=== PATIENT | male | born 1960 | race Asian ===

== ENCOUNTER 2020-08-06 08:03 | Outpatient (REF) | payer OTHER, SELFPAY ==
[2020-08-06 09:01] LABS: Estimated Average Glucose 189 mg/dL; Hemoglobin A1c % 8.2 %
[2020-08-06 09:21] LABS: Alanine Aminotransferase 17 U/L (0-40); Albumin Level 4.3 g/dL (3.5-5.0); Alkaline Phosphatase 64 U/L (39-117); Anion Gap 13 (12-20); Aspartate Amino Transferase 18 U/L (5-37); Bilirubin Total 0.8 mg/dL (0.0-1.0); Blood Urea Nitrogen 10 mg/dL (9-16); Carbon Dioxide 27 mmol/L (22-29); Chloride 102 mmol/L (96-108); Estimated Glomerular Filt Rate > 60; Glucose Random 151 mg/dL (60-115); Potassium 4.6 mmol/L (3.3-5.1); Sodium 137 mmol/L (135-145); Total Protein 7.2 g/dL (6.5-8.0)
== END 2020-08-06 08:04 | disposition home or self-care (01) ==
LOC: HO.LAB 08:03
PROVIDERS: PCP Internal Medicine; Visit Provider Internal Medicine
DX: E03.9 Hypothyroidism, unspecified (principal); E11.65 Type 2 diabetes mellitus with hyperglycemia; E78.2 Mixed hyperlipidemia; I10 Essential (primary) hypertension
CPT/HCPCS: 36415; 80053; 83036

== ENCOUNTER 2020-11-27 08:04 | Outpatient (REF) | payer OTHER, SELFPAY ==
[2020-11-27 08:36] LABS: MANUAL DIFF FLAG NO
[2020-11-27 08:46] LABS: Basophils Absolute Auto 0.1 X10*3/uL (0.0-0.2); Basophils Percent Auto 0.7 % (0-2); Eosinophils Absolute Auto 0.4 X10*3/uL (0.0-0.4); Hematocrit 38.4 % (42-52); Hemoglobin 11.6 g/dl (14.0-18.0); Imm Gran Abs Auto 0.05 X10*3/uL (0.00-0.03); Imm Gran Pct Auto 0.6 % (0.0-0.4); Lymphocytes Absolute Auto 1.6 X10*3/uL (1.2-4.9); Lymphocytes Percent Auto 19.2 % (20-40); Mean Corpuscular HGB Conc 30.2 g/dl (31.0-36.0); Mean Corpuscular Hemoglobin 24.5 pg (27.0-33.0); Mean Corpuscular Volume 81.2 fL (80-98); Mean Platelet Volume 9.3 fL (9.4-12.4); Monocytes Absolute Auto 0.5 X10*3/uL (0.1-1.2); Monocytes Percent Auto 6.3 % (2-11); Neutrophils Absolute Auto 5.7 X10*3/uL (2.0-8.3); Neutrophils Percent Auto 68.2 % (45-73); Platelet Count 306 X10*3/uL (160-400); Red Blood Count 4.73 X10*6/uL (4.60-5.80); Red Cell Distribution Width 14.3 % (11.0-16.0); White Blood Count 8.4 X10*3/uL (4.8-10.8)
[2020-11-27 08:49] LABS: Estimated Average Glucose 169 mg/dL; Hemoglobin A1C 179.1079 umol/L; Hemoglobin A1c % 7.5 %
[2020-11-27 09:03] LABS: Alanine Aminotransferase 18 U/L (0-40); Albumin Level 4.2 g/dL (3.5-5.0); Alkaline Phosphatase 67 U/L (39-117); Anion Gap 14 (12-20); Aspartate Amino Transferase 20 U/L (5-37); Bilirubin Total 0.5 mg/dL (0.0-1.0); Blood Urea Nitrogen 11 mg/dL (9-16); Calcium 9.2 mg/dL (8.4-10.2); Carbon Dioxide 24 mmol/L (22-29); Chloride 104 mmol/L (96-108); Cholesterol 192 mg/dL; Estimated Glomerular Filt Rate > 60; Glucose Fasting 142 mg/dL (60-99); HDL Cholesterol 31 mg/dL; LDL Cholesterol Calculated 103 mg/dl; Potassium 4.6 mmol/L (3.3-5.1); Sodium 137 mmol/L (135-145); Total Protein 7.2 g/dL (6.5-8.0); Triglycerides 292 mg/dL
[2020-11-27 09:20] LABS: Creatinine Urine 22.69 mg/dL; Microalbumin Urine < 5.0 mg/L
== END 2020-11-27 08:05 | disposition home or self-care (01) ==
LOC: HO.LAB 08:04
PROVIDERS: PCP Internal Medicine; Visit Provider Internal Medicine
DX: D50.8 Other iron deficiency anemias (principal); E11.65 Type 2 diabetes mellitus with hyperglycemia; E78.00 Pure hypercholesterolemia, unspecified; I10 Essential (primary) hypertension; M54.5 Low back pain
CPT/HCPCS: 36415; 80053; 80061; 82043; 83036; 85025

== ENCOUNTER 2021-03-02 07:40 | Outpatient (REF) | payer OTHER, SELFPAY ==
[2021-03-02 08:24] LABS: Estimated Average Glucose 183 mg/dL
[2021-03-02 08:46] LABS: Alanine Aminotransferase 23 U/L (0-40); Albumin Level 4.3 g/dL (3.5-5.0); Alkaline Phosphatase 66 U/L (39-117); Anion Gap 12 (12-20); Aspartate Amino Transferase 25 U/L (5-37); Bilirubin Total 0.8 mg/dL (0.0-1.0); Blood Urea Nitrogen 11 mg/dL (9-16); Carbon Dioxide 24 mmol/L (22-29); Chloride 103 mmol/L (96-108); Estimated Glomerular Filt Rate > 60; Glucose Random 140 mg/dL (60-115); Potassium 4.1 mmol/L (3.3-5.1); Sodium 135 mmol/L (135-145); Total Protein 7.3 g/dL (6.5-8.0)
[2021-03-02 09:06] LABS: Thyroid Stimulating Hormone 2.94 uIU/mL (0.32-4.0)
== END 2021-03-02 07:41 | disposition home or self-care (01) ==
LOC: HO.LAB 07:40
PROVIDERS: PCP Internal Medicine; Visit Provider Internal Medicine
DX: Z00.01 Encounter for general adult medical examination with abnormal findings (principal); E03.9 Hypothyroidism, unspecified; E11.65 Type 2 diabetes mellitus with hyperglycemia; E78.00 Pure hypercholesterolemia, unspecified
CPT/HCPCS: 36415; 80053; 83036; 84443

== ENCOUNTER → 2021-04-15 08:36 | Outpatient (BNVA) | payer OTHER, SELFPAY | PROVIDERS: PCP Internal Medicine; Visit Provider Internal Medicine | DX: R07.2 Precordial pain (principal); I10 Essential (primary) hypertension; E78.5 Hyperlipidemia, unspecified; E11.8 Type 2 diabetes mellitus with unspecified complications | CPT/HCPCS: 93005; 99202 ==

== ENCOUNTER → 2021-05-12 07:59 | Outpatient (REF) | payer OTHER, SELFPAY ==
--- NOTE | ~2021-05-12 | NM_ITS ---
Lexiscan Myocardial perfusion study Indication: Chest pain, assess for coronary disease and ischemia Technique: The patient was brought in for a Lexiscan perfusion study on 05/12/2021 and was injected 0.4 mg of Lexiscan intravenously. Within a minute of this injection 40 mCi of sestamibi was given intravenously. Images were obtained using the SPECT gamma camera interlaced with the gating device. Images were obtained in supine position. Resting perfusion study was performed on 05/14/2021. Patient was administered 40 mCi of sestamibi intravenously at rest. Images were then obtained in supine position. Total DLP 88mGy-cm. Images were processed with the software and compared side to side in short axis, horizontal long axis and vertical long axis views. Findings: Raw acquisition was reviewed. The stress perfusion study showed diminished tracer uptake in the basal inferior and inferoseptal inferior wall; mid inferior wall. There is good improvement with CT attenuation correction and hence could be from diaphragmatic attenuation artifact. The gated study shows low normal LV systolic function with calculated LVEF of 51%. LV cavity is normal in size. The gated study shows normal wall thickening and contraction of segments. Resting study shows diminished tracer uptake in the basal part of inferior wall and adjacent inferior septum. There is improvement with CT attenuation correction suggesting diaphragmatic attenuation artifact. Gating at rest reveals normal wall motion with ejection fraction at 50%. The findings are consistent with fixed basal inferior/inferoseptal defect, likely from diaphragmatic attenuation artifact. No reversible defects. NM/NM cardiolite stress test Impression: 1. Myocardial perfusion imaging study shows no evidence of any ischemia or infarction. Likely normal perfusion. 2. Gated LVEF is 51% during stress and 50% during rest. Correlate with echocardiogram. 3. Transient ischemic dilatation not present. EKG component of the test reported separately.
--- NOTE | 2021-05-12 08:02 | CA_ITS ---
Acquisition Time: 2021-05-12 08:43:27 Total Exercise Time: 00:02:21 Test Indications: ABN EKG, CP Medications: SEE CHART Protocol: DB Max HR: 150 BPM 94% of Pred: 158 BPM Max BP: 186/060 mmHG Max Work Load: 4.6 METS Exercise stress test with exercise 2 min 21 sec of Db protocol with request to stop due to fatigue and sob, no chest discomfort. He did have brisk chronotropic response to exercise with heart rate achieving > 90% MPHR, without EKG changes of ischemia noted. He was assisted to sitting and testing changed to a pharmacological stress test with Lexiscan while sitting and kicking his legs, without anginal symptoms, with isolated PVC, with normotensive response to injection, with nondiagnostic EKG for ischemia. Nuclear images pending. Test reviewed with Dr Noel. Referred By: Javan Noel Overread By: ASHLEY HASSAN
== END ==
LOC: HO.CARD 07:59
PROVIDERS: PCP Internal Medicine; Visit Provider Internal Medicine
DX: R07.2 Precordial pain (principal)
CPT/HCPCS: 78452; 93017; A9500; J0280; J2785

== ENCOUNTER 2021-06-01 08:03 | Outpatient (REF) | payer OTHER, SELFPAY ==
[2021-06-01 10:41] LABS: Estimated Average Glucose 171 mg/dL; Hemoglobin A1c % 7.6 %
[2021-06-01 10:52] LABS: Alanine Aminotransferase 25 U/L (0-40); Albumin Level 4.1 g/dL (3.5-5.0); Alkaline Phosphatase 63 U/L (39-117); Anion Gap 14 (12-20); Aspartate Amino Transferase 26 U/L (5-37); Bilirubin Total 0.5 mg/dL (0.0-1.0); Blood Urea Nitrogen 14 mg/dL (9-16); Calcium 9.2 mg/dL (8.4-10.2); Carbon Dioxide 25 mmol/L (22-29); Chloride 102 mmol/L (96-108); Cholesterol 210 mg/dL; Estimated Glomerular Filt Rate > 60; Glucose Fasting 148 mg/dL (60-99); HDL Cholesterol 30 mg/dL; LDL Cholesterol Calculated 127 mg/dl; Potassium 4.6 mmol/L (3.3-5.1); Sodium 136 mmol/L (135-145); Total Protein 7.3 g/dL (6.5-8.0); Triglycerides 268 mg/dL
== END 2021-06-01 08:04 | disposition home or self-care (01) ==
LOC: HO.10HDL 08:03
PROVIDERS: Visit Provider Internal Medicine
DX: E03.9 Hypothyroidism, unspecified (principal); E11.65 Type 2 diabetes mellitus with hyperglycemia; E78.00 Pure hypercholesterolemia, unspecified; I10 Essential (primary) hypertension; K59.00 Constipation, unspecified; R07.89 Other chest pain
CPT/HCPCS: 36415; 80053; 80061; 83036

== ENCOUNTER → 2021-06-03 08:24 | Outpatient (REF) | payer OTHER, SELFPAY ==
--- NOTE | 2021-06-03 08:26 | CA_ITS ---
Transthoracic Echocardiogram Patient (Last, First, Middle): Siddharth Dang, Gender: Male Date of : 1960 Age: 61 Procedure Date: 06/03/2021 Procedure Type: Transthoracic Echocardiogram Location: OP Height: 187.96 cm Weight: 109.01 kg BSA: 2.35 m2 Heart Rate: bpm BP: 140 / 67 mmHg Pyrometer Mechanic: JEFERSON Referring MD: Javan Noel MD Symptoms: R07.2 - Precordial pain Study Quality: Fair/Contrast ECG Rhythm: Sinus Conclusions: - The left ventricular systolic function is normal. The visually estimated ejection fraction is between 55-60%. - There is mild calcification of the aortic valve. - There is mild anterior mitral leaflet thickening. - No obvious valvular pathology seen on this study. Findings Procedure Information Contrast agent, definity, is being given per protocol without apparent complications. Left Ventricle Normal left ventricular cavity size. There is mildly increased left ventricular wall thickness. The left ventricular systolic function is normal. The visually estimated ejection fraction is between 55-60%. E/E prime ratio is between 8 and 15 consistent with indeterminate filling pressures. Evidence suggests grade I (mild) diastolic dysfunction. Right Ventricle Normal right ventricular cavity size and systolic function. Atria Both atria are normal in size. Aortic Valve There is a normal trileaflet aortic valve. There is mild calcification of the aortic valve. There is no aortic valve stenosis. The mean gradient is 4 mmHg. There is no aortic valve regurgitation. Mitral Valve There is mild anterior mitral leaflet thickening. There is no mitral valve regurgitation. There is no mitral valve stenosis. Pulmonic Valve The pulmonic valve was not well visualized. Tricuspid Valve Normal tricuspid valve structure. There is trace tricuspid valve regurgitation. Tricuspid regurgitation envelope is inadequate for calculation of right ventricular systolic pressure. Great Vessels The aortic annulus, sinuses of valsalva, and asc aorta are normal in size. Venous The inferior vena cava is normal in size and collapses greater than 50% with inspiration. Pericardium/Pleural There is no evidence of pericardial effusion. Prior Study Comparison No prior study available for comparison. Recommendations, Care & Conclusions No obvious valvular pathology seen on this study. Measurements 2D Linear Measurements IVSd: 1.20 0.6-0.9/0.6-1.0 cm LVIDd: 4.73 3.9-5.3/4.2-5.9 cm LVIDd Index: 2.01 2.4-3.2/2.2-3.1 cm/m2 LVIDs: 3.19 2.0-3.6 cm LVPWd: 1.10 0.7-1.1 cm Ao Root: 3.40 2.1-3.5 cm LA Diam: 4.00 2.7-3.8/3.0-4.0 cm LAIDs Index: 1.70 1.5-2.3 cm/m2 LV Mass: 251.27 67-162/88-224 g LV Mass Index: 106.92 43-95/49-115 g/m2 LVOT Diam: 2.10 3.0+(-)1.3 cm 2D Systolic Function EF 4C: 52.50 >55% EF 2C: 52.50 >55% EF BiP: 51.20 >55% Mitral Valve MV Pk E: 0.87 MV PK A: 0.81 MV Decel Time: 189.00 E/A: 1.10 E'Lateral: 7.62 E'Medial: 6.74 E/E' Med: 12.90 E/E' Lat: 11.40 PHT: 55.00 MVA PHT: 4.00 Decel [place]: 4.59 Aortic Valve AoV Pk Francisco Javier: 1.36 AoV Mn Francisco Javier: 0.94 AoV VTI: 0.24 AoV Pk Grad: 7.00 Aov Mn Grad: 4.00 YASMIN Cont.VTI: 2.19 LVOT LVOT Pk Francisco Javier: 0.76 LVOT Mn Francisco Javier: 0.49 LVOT VTI: 0.15 LVOT Pk Grad: 2.00 LVOT Mn Grad: 1.00 LVOT Diam: 2.10 LVOT Area: 3.46 Diastolic Function MV Pk E: 0.87 MV Pk A: 0.81 E/A: 1.10 E'Medial: 6.74 E/E' Med: 12.90 E' Laterial: 7.62 E/E' Lat: 11.40 Right Ventricle TAPSE (mm): 2.09 TVS' Francisco Javier: 11.70 Tricuspid Valve RA Press: 3.00 Great Vessels Aorta Ao Root-2D: 3.40 2.0-3.7 cm Ao Asc: 2.90 2.1-3.4 cm Updated in Other Vendor System with Status of Final Javan Noel MD electronically signed on 06/05/2021 4:47:31 PM with status of Final
== END ==
LOC: HO.CARD 08:24
PROVIDERS: Visit Provider Internal Medicine
DX: R07.2 Precordial pain (principal)
CPT/HCPCS: 93306; Q9957

== ENCOUNTER → 2021-06-09 08:55 | Outpatient (BNVA) | payer OTHER, SELFPAY | PROVIDERS: PCP Internal Medicine; Visit Provider Internal Medicine | DX: I10 Essential (primary) hypertension (principal); R07.2 Precordial pain; E11.8 Type 2 diabetes mellitus with unspecified complications; E78.5 Hyperlipidemia, unspecified | CPT/HCPCS: 99212 ==

== ENCOUNTER 2021-09-01 07:46 | Outpatient (REF) | payer OTHER, SELFPAY ==
[2021-09-01 08:40] LABS: Estimated Average Glucose 160 mg/dL; Hemoglobin A1c % 7.2 %
[2021-09-01 08:53] LABS: Alanine Aminotransferase 17 U/L (0-40); Albumin Level 4.1 g/dL (3.5-5.0); Alkaline Phosphatase 62 U/L (39-117); Anion Gap 13 (12-20); Aspartate Amino Transferase 17 U/L (5-37); Bilirubin Total 0.5 mg/dL (0.0-1.0); Blood Urea Nitrogen 12 mg/dL (9-16); Calcium 9.5 mg/dL (8.4-10.2); Carbon Dioxide 24 mmol/L (22-29); Chloride 104 mmol/L (96-108); Cholesterol 200 mg/dL; Estimated Glomerular Filt Rate > 60; Glucose Random 122 mg/dL (60-115); HDL Cholesterol 31 mg/dL; LDL Cholesterol Calculated 106 mg/dl; Potassium 4.6 mmol/L (3.3-5.1); Sodium 136 mmol/L (135-145); Triglycerides 319 mg/dL
[2021-09-01 09:13] LABS: Thyroid Stimulating Hormone 2.32 uIU/mL (0.32-4.0)
== END 2021-09-01 07:47 | disposition home or self-care (01) ==
LOC: HO.LAB 07:46
PROVIDERS: PCP Internal Medicine; Visit Provider Internal Medicine
DX: E03.9 Hypothyroidism, unspecified (principal); E11.65 Type 2 diabetes mellitus with hyperglycemia; E78.00 Pure hypercholesterolemia, unspecified; I10 Essential (primary) hypertension
CPT/HCPCS: 36415; 80053; 80061; 83036; 84443

== ENCOUNTER 2021-11-24 07:47 | Outpatient (REF) | payer OTHER, SELFPAY ==
[2021-11-24 10:24] LABS: MANUAL DIFF FLAG NO
[2021-11-24 10:29] LABS: Basophils Absolute Auto 0.1 X10*3/uL (0.0-0.2); Basophils Percent Auto 0.9 % (0-2); Eosinophils Absolute Auto 0.4 X10*3/uL (0.0-0.4); Eosinophils Percent Auto 5.5 % (0-4); Hematocrit 38.8 % (42.0-52.0); Hemoglobin 11.6 g/dl (14.0-18.0); Imm Gran Abs Auto 0.04 X10*3/uL (0.00-0.03); Imm Gran Pct Auto 0.5 % (0.0-0.4); Lymphocytes Absolute Auto 1.5 X10*3/uL (1.2-4.9); Lymphocytes Percent Auto 18.7 % (20-40); Mean Corpuscular HGB Conc 29.9 g/dl (31.0-36.0); Mean Corpuscular Hemoglobin 24.7 pg (27.0-33.0); Mean Corpuscular Volume 82.7 fL (80.0-98.0); Mean Platelet Volume 9.6 fL (9.4-12.4); Monocytes Absolute Auto 0.6 X10*3/uL (0.1-1.2); Monocytes Percent Auto 7.2 % (2-11); Neutrophils Absolute Auto 5.2 x10*3/uL (2.0-8.3); Neutrophils Percent Auto 67.2 % (45-73); Platelet Count 282 X10*3/uL (160-400); Red Blood Count 4.69 X10*6/uL (4.60-5.80); Red Cell Distribution Width 14.2 % (11.0-16.0); White Blood Count 7.8 X10*3/uL (4.8-10.8)
[2021-11-24 10:58] LABS: Alanine Aminotransferase 17 U/L (0-40); Albumin Level 4.1 g/dL (3.5-5.0); Alkaline Phosphatase 66 U/L (39-117); Anion Gap 15 (12-20); Aspartate Amino Transferase 20 U/L (5-37); Bilirubin Total 0.6 mg/dL (0.0-1.0); Blood Urea Nitrogen 9 mg/dL (9-16); Calcium 8.8 mg/dL (8.4-10.2); Carbon Dioxide 23 mmol/L (22-29); Chloride 103 mmol/L (96-108); Cholesterol 203 mg/dL; Estimated Glomerular Filt Rate > 60; Glucose Fasting 156 mg/dL (60-99); HDL Cholesterol 36 mg/dL; LDL Cholesterol Calculated 120 mg/dl; Potassium 4.5 mmol/L (3.3-5.1); Sodium 136 mmol/L (135-145); Total Protein 7.1 g/dL (6.5-8.0); Triglycerides 239 mg/dL
[2021-11-24 11:00] LABS: Creatinine Urine 22.49 mg/dL; Microalbumin Urine < 5.0 mg/L
[2021-11-24 11:02] LABS: Thyroid Stimulating Hormone 2.17 uIU/mL (0.32-4.0)
[2021-11-24 11:39] LABS: Vitamin B12 594 pg/mL (200-900)
== END 2021-11-24 07:48 | disposition home or self-care (01) ==
LOC: HO.10HDL 07:47
PROVIDERS: Visit Provider Internal Medicine
DX: E11.65 Type 2 diabetes mellitus with hyperglycemia (principal); E78.2 Mixed hyperlipidemia; I10 Essential (primary) hypertension; K44.9 Diaphragmatic hernia without obstruction or gangrene
CPT/HCPCS: 36415; 80053; 80061; 82043; 82607; 84443; 85025

== ENCOUNTER 2022-02-24 07:43 | Outpatient (REF) | payer OTHER, SELFPAY ==
[2022-02-24 10:47] LABS: Estimated Average Glucose 171 mg/dL; Hemoglobin A1c % 7.6 %
[2022-02-24 11:02] LABS: Alanine Aminotransferase 19 U/L (0-40); Albumin Level 4.3 g/dL (3.5-5.0); Alkaline Phosphatase 69 U/L (39-117); Anion Gap 16 (12-20); Aspartate Amino Transferase 22 U/L (5-37); Bilirubin Total 0.6 mg/dL (0.0-1.0); Blood Urea Nitrogen 11 mg/dL (9-16); Calcium 8.8 mg/dL (8.4-10.2); Carbon Dioxide 23 mmol/L (22-29); Chloride 101 mmol/L (96-108); Estimated Glomerular Filt Rate > 60; Glucose Fasting 102 mg/dL (60-99); Potassium 4.4 mmol/L (3.3-5.1); Sodium 136 mmol/L (135-145); Total Protein 7.4 g/dL (6.5-8.0)
[2022-02-24 11:24] LABS: Prostate Specific Antigen 0.49 ng/mL (<0.05-4.0)
== END 2022-02-24 07:44 | disposition home or self-care (01) ==
LOC: HO.10HDL 07:43
PROVIDERS: Visit Provider Internal Medicine
DX: Z12.5 Encounter for screening for malignant neoplasm of prostate (principal); E03.9 Hypothyroidism, unspecified; E11.40 Type 2 diabetes mellitus with diabetic neuropathy, unspecified; E11.65 Type 2 diabetes mellitus with hyperglycemia; E78.2 Mixed hyperlipidemia; I10 Essential (primary) hypertension; N40.0 Benign prostatic hyperplasia without lower urinary tract symptoms
CPT/HCPCS: 36415; 80053; 83036; 84153

== ENCOUNTER 2022-05-03 00:09 | Inpatient (IN) | payer OTHER, SELFPAY ==
[2022-05-03] VITALS (9 sets, daily range): BP systolic 127–160; BP diastolic 69–93; PULSE 82–130; RESP 14–20; TEMP 36.2–36.7; O2SAT 96–98; BMI 31.1; BMI 30.4; BMI 23.5
--- NOTE | ~2022-05-03 | CT_ITS ---
EXAMINATION: CT ANGIOGRAM CHEST CLINICAL INFORMATION: Severe chest pain. Substernal. COMPARISON: CT chest 04/28/2022. TECHNIQUE: Multiple axial images were obtained through the chest after the administration of 70 mL of Omnipaque 350 intravenous contrast. Extensive vascular post-processing including two-dimensional and three-dimensional reformatted images were created and reviewed on an independent workstation. This CT examination was performed using dose optimization techniques as appropriate, variously including the following: *Automated exposure control *Adjustment of mA and/or kV according to patient size (this includes techniques or standardized protocols for targeted exams where dose is matched to indication/reason for exam; i.e. extremities or head) *Use of iterative reconstruction technique DLP: 422 mGy-cm FINDINGS: Vascular: Mild nonocclusive calcific atherosclerosis within the right brachiocephalic artery. Nonocclusive scattered calcific and noncalcific atherosclerosis within the thoracic aorta. Normal caliber and contour of the thoracic aorta. No dissection of the thoracic aorta noted. Patent origin of the celiac axis and superior mesenteric artery. Patent bilateral renal arteries noted. The kidneys are not fully included in the image [id number]. The main and central pulmonary arteries are normal in caliber. Within the visualized pulmonary arterial system: No intraluminal filling defects are noted to suggest the presence of pulmonary emboli. Partial visualization is made of at least moderate coronary artery calcific atherosclerosis principally within the left anterior descending and circumflex coronary arteries. LUNGS: No pulmonary consolidation. No peribronchial wall thickening or endobronchial lesions noted. The small number of noncalcified pulmonary nodules identified on the comparison study of 04/28/2022 are grossly unchanged without definitive correlates possibly because of mild motion artifact and differences in technique on the current examination. The previously noted 5 mm subpleural nodule within the right lower pulmonary lobe (series 5 image 336) is visualized to better advantage on the comparison CT of 04/28/2022. Mediastinum: No abnormal mediastinal fluid collections. No lymphadenopathy. Normal heart size. No pericardial thickening or fluid collections. Incidentally visualized abdominal structures: Normal appearance of the adrenal glands. CHEST WALL: No axillary lymphadenopathy or subcutaneous inflammatory changes. Osseous structures: Mild multilevel anterior endplate osteophytosis of the thoracic spine. CT/CT angio chest aorta IMPRESSION: CT angiography of the chest: *No acute abnormalities identified. No thoracic aortic dissection or thoracic aortic aneurysm. *No evidence of pulmonary emboli. *Partial visualization of moderate scattered coronary artery calcific atherosclerosis predominantly within the left anterior descending and circumflex coronary arteries. *Partial visualization of previously noted scattered pulmonary nodules measuring up to 5 mm in diameter (CT chest 04/28/2022). Per the 2017 revised Fleischner Society guidelines, no routine follow-up is necessarily required in low-risk patients, and consideration of 12 month follow-up CT is recommended for patients at high-risk for the development of pulmonary neoplasm.
--- NOTE | 2022-05-03 00:30 | ECG_ITS ---
Test Reason : chest pain Blood Pressure : / mmHG Vent. Rate : 106 BPM Atrial Rate : 106 BPM P-R Int : 134 ms QRS Dur : 082 ms QT Int : 356 ms P-R-T Axes : 061 -04 025 degrees QTc Int : 472 ms Sinus tachycardia Nonspecific ST and T wave abnormality Abnormal ECG No previous ECGs available Referred By: Cande Zuleta Electronically Signed By:VAISHALI VAZQUEZ
[2022-05-03 00:40] LABS: MANUAL DIFF FLAG NO
--- NOTE | 2022-05-03 00:40 | ED_ITS ---
HPI - Chest Pain General Chief Complaint: Chest Pain Stated Complaint: CP Time Seen by Provider: 05/03/22 00:30 Source: patient and EMS Mode of arrival: EMS Limitations: no limitations History of Present Illness HPI narrative: This is a 62-year-old male history of type 2 diabetes, hypertension, precordial chest pain presenting to the emergency department via ambulance for severe substernal chest pain that started just prior to arrival. Patient rates the pain of 05/01 in the substernal region going into his back. Patient tells me he gets chest pain every day due to GERD however this feels different. Patient tells me that he has been getting daily chest pain however this episode prompted him to come in to be evaluated. Patient tells me that his typical episodes go away on their own however this will not going away. Patient has never had a CT of chest. Patient is followed by cardiology and has had echoes of his heart in the past. Denies shortness of breath, nausea, vomiting, headache, vision bruce es, dizziness, chest trauma. Related Data Home Medications Medication Instructions Recorded Confirmed atorvastatin 80 mg tablet 80 mg PO DAILY 04/15/21 06/09/21 empagliflozin 25 mg tablet 25 mg PO DAILY 04/15/21 06/09/21 (Jardiance) glipizide 10 mg tablet, extended 10 mg PO BID 04/15/21 06/09/21 release 24 hr levothyroxine 75 mcg tablet 75 mcg PO DAILY 04/15/21 06/09/21 losartan 100 1 tab PO DAILY 04/15/21 06/09/21 mg-hydrochlorothiazide 25 mg tablet metformin 1,000 mg tablet 1,000 mg PO BID 04/15/21 06/09/21 Previous Rx's Medication Instructions Recorded aluminum-mag hydroxide-simethicone 5 ml PO 5XD PRN dyspepsia #355 mL 05/03/22 200 mg-200 mg-20 mg/5 mL oral susp (Maalox Advanced) Allergies Allergy/AdvReac Type Severity Reaction Status Date / Time Penicillins [PENICILLINS] Allergy Intermediate RASH Verified 06/09/21 09:00 lisinopril Allergy Unknown Itching Verified 06/09/21 09:00 Review of Systems Review of Systems: Constitutional : No Weight loss, No Fever, No Chills, No Fatigue, No Malaise ENT/Mouth : No sore throat, No Rhinorrhea Eyes: No Eye Pain, No Swelling, No Redness Cardiovascular : + Chest Pain, No SOB, No Dyspnea on Exertion, No Orthopnea, No Edema, No Palpitations Respiratory : No Cough, No Sputum, No Wheezing Gastrointestinal : No Nausea, No Vomiting, No Diarrhea, No Constipation, No abdominal Pain, No Hematochezia, No Melena Genitourinary : No Dysuria, No Urinary Frequency, No Hematuria, Musculoskeletal : No joint pain, No Myalgias, No Joint Swelling Skin : No Skin Lesions, No rash Neuro : No Weakness, No Numbness, No Dizziness, No Headache Psych : No Anxiety/Panic, No Depression All other systems reviewed and are negative Yes all other systems are reviewed and are negative [facility] Past Medical History Attestation statement: The following information was validated with the patient. Source: old records reviewed and nursing notes reviewed Medical History Essential hypertension Other and unspecified hyperlipidemia Type 2 diabetes mellitus with unspecified complications Surgical History No pertinent past surgical history Family History Family History Father No problems noted. Mother No problems noted. Social History Social History Patient Tobacco Use Status: Never used Tobacco Advance Directives: No Physical Exam Vital Signs: Vital Signs: Last Vital Signs Temp 97.5 F 05/03/22 01:21 Pulse 101 H 05/03/22 01:31 Resp 14 05/03/22 01:32 BP 145/85 H 05/03/22 01:31 Pulse Ox 98 05/03/22 01:21 O2 Del Method 05/03/22 01:21 BMI result Body Mass Index 31.1 vss, slightly tachycardic Appearance: Alert.? Oriented X3.? No acute distress.? Head: Normocephalic, atraumatic, no step-offs or deformities Eyes: Pupils equal, round and reactive to light.? ENT: Pharynx normal.? Neck: Normal inspection.? Neck supple.? CVS: Fast rate regular rhythm likely sinus tachycardia.? Pulses normal.? Respiratory: No respiratory distress.? Breath sounds normal.? Abdomen: Soft and nontender.? Skin: Skin warm and dry.? Normal skin color.? Normal skin turgor.? Extremities: No lower extremity edema.? No calf ttp. 5/5 strength to bilateral upper and lower extremities Neuro: Oriented X 3.? No motor deficit.? No sensory deficit. CN 2-12 intact . Patient ambulates with steady gait normal coordination. Course Course Course Narrative: Case discussed w/ my attending Reevaluation(s) Reevaluation #1: EKG still not done. CBC appears to be around patient's baseline he does have a microcytic anemia. Chemistry with no acute findings requiring intervention. Troponin 1001.3 elevated, still waiting for EKG. Troponin ordered for 3:35 for repeat. Time: 01:14 Reevaluation #2: EKG with ventricular rate of 106, MI interval normal, QRS normal, QT/QTC normal. EKG with sinus tachycardia no ST elevations or inversions concerning for ischemia. Reached out to Cardiology you states this is likely ACS, recommend starting heparin trending cardiac markers, giving statins and nitrates. States the pain does not improve patient should be transferred to [facility] Time: 01:37 Reevaluation #3: Suspicion for NSTEMI. Heparin ordered. Sign-out given tonight doctor Dr. Gu pending CTA likely hospital admission for an NSTEMI Time: 01:45 Medications Administered Discontinued Medications Generic Name Dose Route Start Last Admin Trade Name Freq PRN Reason Stop Dose Admin Al Hydroxide/Mg Hydroxide 30 ml 05/03/22 00:30 05/03/22 00:52 Magnesium Hydrox/Alum Hydrox 30 Ml Oral.Susp PO 05/03/22 00:31 30 ml ONCE ONE Administration Aspirin 325 mg 05/03/22 01:15 05/03/22 01:31 Aspirin Enteric Coated 325 Mg Tablet.Dr PO 05/03/22 01:16 325 mg ONCE ONE Administration Atorvastatin Calcium 80 mg 05/03/22 01:35 05/03/22 01:42 Atorvastatin Calcium 80 Mg Tablet PO 05/03/22 01:36 80 mg ONCE ONE Administration Belladonna Alkaloids/Phenobarbital 10 ml 05/03/22 00:30 05/03/22 00:53 Phenobarb/Hyoscy/Atropine/Scop 10 Ml Elixir PO 05/03/22 00:31 10 ml ONCE ONE Administration Iohexol 70 ml 05/03/22 01:17 05/03/22 01:18 Iohexol 350 Mg/Ml 100 Ml Infus..Btl IV 05/03/22 01:18 70 ml ONCE ONE Administration Morphine Sulfate 4 mg 05/03/22 01:15 05/03/22 01:32 Morphine Sulfate 4 Mg/Ml Cartridge IVPUSH 05/03/22 01:16 4 mg ONCE ONE Administration Protocol Nitroglycerin 0.5 inch 05/03/22 01:15 05/03/22 01:31 Nitroglycerin 2 % Oint 1 Gm Packet TRANSDERMA 05/03/22 01:16 0.5 inch ONCE ONE Administration Medical Decision Making Medical Decision Making [facility] Narrative: 0042 62-year-old male presents with sudden onset substernal chest pain rating at 12/10 going into his back. Typically gets chest pain however this feels different. Physical examination with rapid regular rhythm likely sinus tachycardia. Rest of exam benign. Will obtain CTA of the chest to rule out dissection/AAA although unlikely. Like ly chest pain,or ACS. History and physical examination unlikely PE. Due to patient's history will not wait for laboratory studies to do dissection study. Upon chart review patient has seen Cardiology here at [facility] has had an echo which showed NM/NM cardiolite stress test Impression: 1. Myocardial perfusion imaging study shows no evidence of any ischemia or infarction. Likely normal perfusion. 2. Gated LVEF is 51% during stress and 50% during rest. Correlate with echocardiogram. 3. Transient ischemic dilatation not present. Plan at this time labs, imaging, EKG. This PAC started an 18 G in R AC and obtained labs. Asked nursing for stat EKG. Critical Care Time Critical Care Time Critical Care Time: Yes Total Critical Care Time: 35 Attestation: I attest to this time spent taking care of the patient, obtaining history, physical, reviewing labs, imaging, speaking to my attending, speaking to specialist. Discharge Plan Discharge Clinical Impression: ACS (acute coronary syndrome), Gastroesophageal reflux disease Patient Disposition: Still a Patient Instructions: Chest Pain (ED), Gastroesophageal Reflux Disease (ED), Indig estion (ED) Prescriptions: New alum-mag hydroxide-simeth [Maalox Advanced] 200-200-20 mg/5 mL suspension 5 ml PO 5XD PRN (Reason: dyspepsia) Qty: 355 0RF Rx Instructions: administer between meals and at bedtime No Action Jardiance 25 mg tablet 25 mg PO DAILY metformin 1,000 mg tablet 1,000 mg PO BID levothyroxine 75 mcg tablet 75 mcg PO DAILY losartan-hydrochlorothiazide 100-25 mg tablet 1 tab PO DAILY glipizide 10 mg tablet extended release 24hr 10 mg PO BID atorvastatin 80 mg tablet 80 mg PO DAILY
[2022-05-03 00:42] LABS: Basophils Absolute Auto 0.1 X10*3/uL (0.0-0.2); Basophils Percent Auto 0.8 % (0-2); Eosinophils Absolute Auto 0.5 X10*3/uL (0.0-0.4); Eosinophils Percent Auto 5.2 % (0-4); Hematocrit 38.7 % (42.0-52.0); Imm Gran Abs Auto 0.03 X10*3/uL (0.00-0.03); Imm Gran Pct Auto 0.3 % (0.0-0.4); Lymphocytes Absolute Auto 1.9 X10*3/uL (1.2-4.9); Lymphocytes Percent Auto 22.3 % (20-40); Mean Corpuscular Hemoglobin 24.2 pg (27.0-33.0); Mean Platelet Volume 9.2 fL (9.4-12.4); Monocytes Absolute Auto 0.7 X10*3/uL (0.1-1.2); Neutrophils Absolute Auto 5.5 x10*3/uL (2.0-8.3); Neutrophils Percent Auto 63.4 % (45-73); Platelet Count 285 X10*3/uL (160-400); Red Blood Count 4.96 X10*6/uL (4.60-5.80); Red Cell Distribution Width 14.1 % (11.0-16.0); White Blood Count 8.7 X10*3/uL (4.8-10.8)
[2022-05-03] MEDS: Magnesium Hydrox/Alum Hydrox 30 ML ORAL.SUSP PO (00:52)
[2022-05-03] MEDS: PHENobarb/Hyoscy/Atropine/Scop 10 ML ELIXIR PO (00:53)
[2022-05-03 00:57] LABS: Alanine Aminotransferase 19 U/L (0-40); Albumin Level 4.2 g/dL (3.5-5.0); Alkaline Phosphatase 85 U/L (39-117); Anion Gap 16 (12-20); Aspartate Amino Transferase 20 U/L (5-37); Bilirubin Total 0.4 mg/dL (0.0-1.0); Blood Urea Nitrogen 13 mg/dL (9-16); Calcium 9.5 mg/dL (8.4-10.2); Carbon Dioxide 21 mmol/L (22-29); Chloride 102 mmol/L (96-108); Estimated Glomerular Filt Rate > 60; Glucose Random 196 mg/dL (60-115); Sodium 135 mmol/L (135-145); Total Protein 7.3 g/dL (6.5-8.0)
[2022-05-03 01:03] LABS: Troponin-I High Sensitivity 1001.3 ng/L (<3.5-35.0)
[2022-05-03] MEDS: iohexoL 350 MG/ML 100 ML INFUS..BTL 70 ML IV (01:18)
--- NOTE | 2022-05-03 01:23 | MHC.EDTECH ---
[place] [facility] [place] room 4 per JULISSA Rubio. EKG performed, labs and covid swab sent to lab. pt placed on director of cardiac cath lab. resting comfortably at this time.
[2022-05-03 01:29] LABS: INTERNATIONAL NORM RATIO 1.1 (0.9-1.1); Prothrombin Time 13.1 SEC (10.0-13.1)
[2022-05-03] MEDS: Nitroglycerin 2 % Oint 1 GM Packet 0.5 INCH TRANSDERMA (01:31)
[2022-05-03] MEDS: Aspirin Enteric Coated 325 MG TABLET.DR PO (01:31)
[2022-05-03] MEDS: Morphine Sulfate 4 MG/ML CARTRIDGE IVPUSH (01:32)
[2022-05-03 01:40] LABS: COVID-19 Test Negative (Negative); IDNOW Serial# BCCEAD1C
[2022-05-03] MEDS: Atorvastatin Calcium 80 MG TABLET PO (01:42)
--- NOTE | 2022-05-03 02:00 | ECG_ITS ---
Test Reason : ches pain Blood Pressure : / mmHG Vent. Rate : 083 BPM Atrial Rate : 083 BPM P-R Int : 130 ms QRS Dur : 084 ms QT Int : 406 ms P-R-T Axes : 051 -09 069 degrees QTc Int : 477 ms Normal sinus rhythm Nonspecific T wave abnormality Prolonged QT Abnormal ECG When compared with ECG of 03-MAY-2022 01:11, Nonspecific T wave abnormality no longer evident in Inferior leads Referred By: Cande Zuleta Electronically Signed By:VAISHALI VAZQUEZ
[2022-05-03 02:50] LABS: B Type Natriuretic Peptide 97 pg/mL (<100)
--- NOTE | 2022-05-03 02:50 | PM.IMHP ---
History of Present Illness Date of Service: 05/03/22 Chief Complaint: Chest Pain This is 62-year-old male with pertinent history of essential hypertension, zuo-bwuofhy-latygqfcb diabetes mellitus, mixed hyperlipidemia, hypothyroidism, gastroesophageal reflux disease presents the emergency department evaluation of chest discomfort. Patient states he has been having chest discomfort for a while and initially it was thought to be due to GERD. It is usually worse with ambulation and is relieved on rest. On the day of presentation, his chest discomfort worsened and did not relieve with rest. Does have occasional chest discomfort when sleeping with acid reflux symptoms. Never has had a cardiac catheterization. He denies palpitations, shortness of breath, fever, chills, cough, abdominal pain, changes in urinary or bowel habits. In the emergency department, troponin was found to be elevated and heparin was initiated Review of Systems Constitutional: Constitutional: Reports no additional constitutional complaints Cardiovascular: Cardiovascular: Reports chest pain Respiratory: Respiratory: Reports no additional respiratory complaints Genitourinary: Genitourinary: Reports no additional male genitourinary complaints [facility] Medical History Essential hypertension Other and unspecified hyperlipidemia Type 2 diabetes mellitus with unspecified complications Family History Father No problems noted. Mother No problems noted. Surgical History No pertinent past surgical history Social History Patient Tobacco Use Status: Never used Tobacco Advance Directives: No Meds Allergies Allergy/AdvReac Type Severity Reaction Status Date / Time Penicillins [PENICILLINS] Allergy Intermediate RASH Verified 06/09/21 09:00 lisinopril Allergy Unknown Itching Verified 06/09/21 09:00 Active Medications: Current Medications Acetaminophen (Acetaminophen 325 Mg Tablet) 650 mg PO Q6H PRN PRN Reason: Pain, Mild (Pain Scale 1-3) Atorvastatin Calcium (Atorvastatin Calcium 40 Mg Tablet) 40 mg PO ONCE ONE Stop: 05/03/22 02:36 Melatonin (Melatonin 3 Mg Tablet) 6 mg PO BEDTIME PRN PRN Reason: Insomnia Nitroglycerin (Nitroglycerin 0.4 Mg Tab.Subl) 0.4 mg SUBLINGUAL Q5MX3 PRN PRN Reason: chest pain Ondansetron HCl (Ondansetron Hcl 4 Mg/2 Ml Vial) 4 mg IVPUSH Q8H PRN PRN Reason: Nausea and Vomiting Pharmacy Consult (Consult Rx Perform Med Rec) 1 each MISCELLANE ONCE PRN PRN Reason: Consult order Sodium Chloride (0.9 % Sodium Chloride Flush 3 Ml Syringe) 3 ml IVFLUSH [facility] Medications Medication Instructions Recorded Confirmed Last Taken Type atorvastatin 80 mg tablet 80 mg PO DAILY 04/15/21 06/09/21 Unknown History empagliflozin 25 mg tablet 25 mg PO DAILY 04/15/21 06/09/21 Unknown History (Jardiance) glipizide 10 mg tablet, extended 10 mg PO BID 04/15/21 06/09/21 Unknown History release 24 hr levothyroxine 75 mcg tablet 75 mcg PO DAILY 04/15/21 06/09/21 Unknown History losartan 100 1 tab PO DAILY 04/15/21 06/09/21 Unknown History mg-hydrochlorothiazide 25 mg tablet metformin 1,000 mg tablet 1,000 mg PO BID 04/15/21 06/09/21 Unknown History Physical Exam Vital Signs and Narrative: Vital Signs: Last Vital Signs Temp 97.5 F 05/03/22 01:21 Pulse 101 H 05/03/22 01:31 Resp 14 05/03/22 01:32 BP 145/85 H 05/03/22 01:31 Pulse Ox 98 05/03/22 01:21 O2 Del Method 05/03/22 01:21 BMI result Body Mass Index 31.1 Middle-aged male lying in bed in no distress Neck supple, no JVD, no chest tenderness Tachycardic with regular rhythm, S1-S2 heard Regular breath sounds bilaterally, no wheezing or crackles appreciated Abdomen soft nontender, no guarding, no rigidity Patient is awake, alert and oriented to self, place, time and person ; no focal motor deficit Psych: Normal mood No pedal edema Results Labs CBC and Chem 7: 05/03/22 00:35 05/03/22 00:35 Labs: Laboratory Results - last 24 hr 05/03/22 05/03/22 05/03/22 00:35 00:35 00:35 MCV 78.0 L MCH 24.2 L MCHC 31.0 RDW 14.1 Plt Count 285 MPV 9.2 L Immature Gran % (Auto) 0.3 Neut % (Auto) 63.4 Lymph % (Auto) 22.3 [place] % (Auto) 8.0 Eos % (Auto) 5.2 H Baso % (Auto) 0.8 Lymph # (Auto) 1.9 [place] # (Auto) 0.7 Eos # (Auto) 0.5 H Baso # (Auto) 0.1 Abs Immat Gran (auto) 0.03 Absolute Neuts (auto) 5.5 Absolute Nucleated RBC 0.000 Nucleated RBC % (auto) 0.0 PT INR Anion Gap 16 Estim Creat Clear Calc 98.0 Estimated GFR > 60 Random Glucose 196 H Calcium 9.5 D Total Bilirubin 0.4 AST 20 ALT 19 Alkaline Phosphatase 85 Troponin I High Sens 1001.3 H* Total Protein 7.3 Albumin 4.2 COVID-19 ([facility]) COVID-Radius 05/03/22 05/03/22 05/03/22 01:13 01:17 01:17 MCV MCH MCHC RDW Plt Count MPV Immature Gran % (Auto) Neut % (Auto) Lymph % (Auto) [place] % (Auto) Eos % (Auto) Baso % (Auto) Lymph # (Auto) [place] # (Auto) Eos # (Auto) Baso # (Auto) Abs Immat Gran (auto) Absolute Neuts (auto) Absolute Nucleated RBC Nucleated RBC % (auto) PT 13.1 INR 1.1 Anion Gap Cancelled Estim Creat Clear Calc Cancelled Estimated GFR Cancelled Random Glucose Cancelled Calcium Cancelled Total Bilirubin Cancelled AST Cancelled ALT Cancelled Alkaline Phosphatase Cancelled Troponin I High Sens Total Protein Cancelled Albumin Cancelled COVID-19 ([facility]) Negative COVID-19 Clin Com See Note 05/03/22 01:17 MCV MCH MCHC RDW Plt Count MPV Immature Gran % (Auto) Neut % (Auto) Lymph % (Auto) [place] % (Auto) Eos % (Auto) Baso % (Auto) Lymph # (Auto) [place] # (Auto) Eos # (Auto) Baso # (Auto) Abs Immat Gran (auto) Absolute Neuts (auto) Absolute Nucleated RBC Nucleated RBC % (auto) PT INR Anion Gap Estim Creat Clear Calc Estimated GFR Random Glucose Calcium Total Bilirubin AST ALT Alkaline Phosphatase Troponin I High Sens Cancelled Total Protein Albumin COVID-19 ([facility]) COVID-19 Clin Com Imaging Radiologist's Impressions: Impressions Chest CTA 05/03/22 01:17 IMPRESSION: CT angiography of the chest: *No acute abnormalities identified. No thoracic aortic dissection or thoracic aortic aneurysm. *No evidence of pulmonary emboli. *Partial visualization of moderate scattered coronary artery calcific atherosclerosis predominantly within the left anterior descending and circumflex coronary arteries. *Partial visualization of previously noted scattered pulmonary nodules measuring up to 5 mm in diameter (CT chest 04/28/2022). Per the 2017 revised Fleischner Society guidelines, no routine follow-up is necessarily required in low-risk patients, and consideration of 12 month follow-up CT is recommended for patients at high-risk for the development of pulmonary neoplasm. Assessment and Plan (1) Precordial chest pain: Status: Acute (2) Gastroesophageal reflux disease: Status: Acute (3) Type 2 diabetes mellitus with unspecified complications: Status: Acute (4) Other and unspecified hyperlipidemia: Status: Acute (5) Essential hypertension: Status: Acute Plan This is 62-year-old male with pertinent history of essential hypertension, dhy-dpnepnv-cdpyynoph diabetes mellitus, mixed hyperlipidemia, hypothyroidism, gastroesophageal reflux disease presents the emergency department evaluation of chest discomfort. #. NSTEMI: Will admit with credit assessment analyst. Initiated IV heparin. Cardiology was consulted from the ER, appreciate assistance. Patient also received aspirin loading dose and high-intensity statin. Nitroglycerin sublingual p.r.n. #. Essential hypertension: On losartan-HCTZ. Not on B marielle #. Uns-sxbmivt-vtwxosvrz diabetes mellitus: Hold home p.o. medications. Initial Accu-Cheks with sliding scale insulin #. Hypothyroidism: On Synthroid #. Gastroesophageal reflux disease: On PPI Med rec pending DVT prophylaxis: On heparin Full code Admit as inpatient and will require two night minimum hospital stay for IV heparin. Time Spent With Patient Time: Total time managing care of this patient today ____ minutes. Quality Stroke Does the patient have a stroke diagnosis?: No VTE Prior VTE?: No VTE Risk Level:: Medical - low VTE Device Contraindication: Treatment Not Indicated VTE Drug Contraindication: N/A - Med Ordered
[2022-05-03 03:19] LABS: Hematocrit 37.6 % (42.0-52.0); Hemoglobin 11.8 g/dl (14.0-18.0); Mean Corpuscular HGB Conc 31.4 g/dl (31.0-36.0); Mean Corpuscular Hemoglobin 24.5 pg (27.0-33.0); Mean Corpuscular Volume 78.2 fL (80.0-98.0); Mean Platelet Volume 9.1 fL (9.4-12.4); Platelet Count 279 X10*3/uL (160-400); Red Blood Count 4.81 X10*6/uL (4.60-5.80); Red Cell Distribution Width 14.2 % (11.0-16.0); White Blood Count 10.4 X10*3/uL (4.8-10.8)
[2022-05-03 03:29] LABS: Glucose, Whole Blood 221 mg/dL (60-115)
[2022-05-03 03:38] LABS: INTERNATIONAL NORM RATIO 1.1 (0.9-1.1); Prothrombin Time 12.6 SEC (10.0-13.1)
[2022-05-03 03:40] LABS: PTT Heparin Drip 28.1 SEC (53-77.9)
[2022-05-03] MEDS: Heparin Sodium,Porcine/1/2NS 25,000 UNIT/250 ML IV.SOLN 14.69 UNIT IVCONT (03:50)
[2022-05-03 03:54] LABS: Troponin-I High Sensitivity 1486.1 ng/L (<3.5-35.0)
[2022-05-03] MEDS: Insulin Lispro 100 UNIT/ML 3 ML VIAL SUBCUT ×2 (04:00→17:30)
[2022-05-03 06:18] LABS: MANUAL DIFF FLAG NO
[2022-05-03 06:28] LABS: Basophils Absolute Auto 0.1 X10*3/uL (0.0-0.2); Basophils Percent Auto 0.9 % (0-2); Eosinophils Absolute Auto 0.6 X10*3/uL (0.0-0.4); Eosinophils Percent Auto 6.4 % (0-4); Hematocrit 37.3 % (42.0-52.0); Hemoglobin 11.4 g/dl (14.0-18.0); Imm Gran Abs Auto 0.04 X10*3/uL (0.00-0.03); Imm Gran Pct Auto 0.4 % (0.0-0.4); Lymphocytes Absolute Auto 2.5 X10*3/uL (1.2-4.9); Lymphocytes Percent Auto 27.1 % (20-40); Mean Corpuscular HGB Conc 30.6 g/dl (31.0-36.0); Mean Corpuscular Hemoglobin 24.3 pg (27.0-33.0); Mean Corpuscular Volume 79.4 fL (80.0-98.0); Mean Platelet Volume 9.6 fL (9.4-12.4); Monocytes Absolute Auto 0.7 X10*3/uL (0.1-1.2); Monocytes Percent Auto 7.4 % (2-11); Neutrophils Absolute Auto 5.3 x10*3/uL (2.0-8.3); Neutrophils Percent Auto 57.8 % (45-73); Platelet Count 294 X10*3/uL (160-400); White Blood Count 9.2 X10*3/uL (4.8-10.8)
[2022-05-03 08:30] LABS: Glucose, Whole Blood 167 mg/dL (60-115)
--- NOTE | 2022-05-03 09:29 | PHA.MEDREC ---
Pharmacy Consult ? Medication Reconciliation Pharmacy has completed the medication reconciliation. Patient and patient's daughter confirmed medications. Both reported patient stopped metoprolol because he was into much pain. Daughter reports he most likely should be on metoprolol succinate 100 mg daily. Armida Santamaria, PharmD
--- NOTE | 2022-05-03 09:59 | P.DS_ITS ---
DS: Providers Provider Date of Service: 05/03/22 Date of admission: 05/03/22 02:32 Primary care physician: Florence Dickerson MD Consults: 05/03/22 02:34 Consult to Cardiology Routine Consulting Provider: Gilles Jackson Reason for consultation: NSTEMI DS: Diagnosis Discharge Diagnosis (1) Precordial chest pain: Status: Acute (2) Gastroesophageal reflux disease: Status: Acute (3) Type 2 diabetes mellitus with unspecified complications: Status: Acute (4) Other and unspecified hyperlipidemia: Status: Acute (5) Essential hypertension: Status: Acute DS: Summary Hospital Course Hospital Course: Chief Complaint: Chest Pain This is 62-year-old male with pertinent history of essential hypertension, kkq-amdfgoz-caywnllwb diabetes mellitus, mixed hyperlipidemia, hypothyroidism, gastroesophageal reflux disease presents the emergency department evaluation of chest discomfort.? Patient states he has been having chest discomfort for a while and initially it was thought to be due to GERD.? It is usually worse with ambulation and is relieved on rest.? On the day of presentation, his chest discomfort worsened and did not relieve with rest.? Does have occasional chest discomfort when sleeping with acid reflux symptoms.? Never has had a cardiac catheterization.? He denies palpitations, shortness of breath, fever, chills, cough, abdominal pain, changes in urinary or bowel habits. In the emergency department, troponin was found to be elevated and heparin was initiated Hospital course: Patient presented with chest pain and found to have NSTEMI with troponin level starting 1000 and peaking at 1400, ECG showed non-specific ST-T changes. He is pain free now and hemodynamically stable. Medical management has including ASA, BB, Statin and IV heparin, credit professional Dr. Noel advises transfer to [facility] for further risk stratification with cardiac catheterization. Time Spent with Patient Time attestation: Total time managing care of this patient today ____ minutes. Discharge coordination time: Greater than 30 minutes Quality: Safe Use of Opioids Does Pt have an Active Cancer Diagnosis on the Problem List?: No Quality: Stroke Does the patient have a stroke diagnosis?: No Physical Exam Vital Signs: Vital Signs: Last Vital Signs Temp 97.4 F 05/03/22 08:00 Pulse 92 05/03/22 08:00 Resp 16 05/03/22 08:00 BP 127/69 05/03/22 08:00 Pulse Ox 98 12/12/22 08:00 O2 Del Method 05/03/22 08:00 BMI result Body Mass Index 23.5 Const: Other: General: AO X 3, no acute distress Resp: CTA bilateral CVS: S1,S2,RRR GI: +BS, NT, no distention Skin: No rash Neuro: motor grossly intact Psych: appropriate affect DS: Data Data Completed and Pending Labs on day of discharge: Laboratory Results - last 24 hr 05/03/22 05/03/22 05/03/22 00:35 00:35 00:35 WBC 8.7 RBC 4.96 Hgb 12.0 L Hct 38.7 L MCV 78.0 L MCH 24.2 L MCHC 31.0 RDW 14.1 Plt Count 285 MPV 9.2 L Immature Gran % (Auto) 0.3 Neut % (Auto) 63.4 Lymph % (Auto) 22.3 [place] % (Auto) 8.0 Eos % (Auto) 5.2 H Baso % (Auto) 0.8 Lymph # (Auto) 1.9 [place] # (Auto) 0.7 Eos # (Auto) 0.5 H Baso # (Auto) 0.1 Abs Immat Gran (auto) 0.03 Absolute Neuts (auto) 5.5 Absolute Nucleated RBC 0.000 Nucleated RBC % (auto) 0.0 PT INR aPTT Heparin Protocol Sodium 135 Potassium 4.0 Chloride 102 Carbon Dioxide 21 L Anion Gap 16 BUN 13 Creatinine 0.99 Estim Creat Clear Calc 98.0 Estimated GFR > 60 POC Glucose Random Glucose 196 H Calcium 9.5 D Total Bilirubin 0.4 AST 20 ALT 19 Alkaline Phosphatase 85 Troponin I High Sens 1001.3 H* B-Natriuretic Peptide Total Protein 7.3 Albumin 4.2 COVID-19 ([facility]) COVID-19 Clin Com 05/03/22 05/03/22 05/03/22 00:35 01:13 01:17 WBC RBC Hgb Hct MCV MCH MCHC RDW Plt Count MPV Immature Gran % (Auto) Neut % (Auto) Lymph % (Auto) [place] % (Auto) Eos % (Auto) Baso % (Auto) Lymph # (Auto) [place] # (Auto) Eos # (Auto) Baso # (Auto) Abs Immat Gran (auto) Absolute Neuts (auto) Absolute Nucleated RBC Nucleated RBC % (auto) PT INR aPTT Heparin Protocol Sodium Cancelled Potassium Cancelled Chloride Cancelled Carbon Dioxide Cancelled Anion Gap Cancelled BUN Cancelled Creatinine Cancelled Estim Creat Clear Calc Cancelled Estimated GFR Cancelled POC Glucose Random Glucose Cancelled Calcium Cancelled Total Bilirubin Cancelled AST Cancelled ALT Cancelled Alkaline Phosphatase Cancelled Troponin I High Sens B-Natriuretic Peptide 97 Total Protein Cancelled Albumin Cancelled COVID-19 ([facility]) Negative COVID-19 Clin Com See Note 05/03/22 05/03/22 05/03/22 01:17 01:17 03:14 WBC RBC Hgb Hct MCV MCH MCHC RDW Plt Count MPV Immature Gran % (Auto) Neut % (Auto) Lymph % (Auto) [place] % (Auto) Eos % (Auto) Baso % (Auto) Lymph # (Auto) [place] # (Auto) Eos # (Auto) Baso # (Auto) Abs Immat Gran (auto) Absolute Neuts (auto) Absolute Nucleated RBC Nucleated RBC % (auto) PT 13.1 INR 1.1 aPTT Heparin Protocol Sodium Potassium Chloride Carbon Dioxide Anion Gap BUN Creatinine Estim Creat Clear Calc Estimated GFR POC Glucose Random Glucose Calcium Total Bilirubin AST ALT Alkaline Phosphatase Troponin I High Sens Cancelled 1486.1 H* B-Natriuretic Peptide Total Protein Albumin COVID-19 ([facility]) COVID-Organizer 05/03/22 05/03/22 05/03/22 03:14 03:14 03:25 WBC 10.4 RBC 4.81 Hgb 11.8 L Hct 37.6 L MCV 78.2 L MCH 24.5 L MCHC 31.4 RDW 14.2 Plt Count 279 MPV 9.1 L Immature Gran % (Auto) Neut % (Auto) Lymph % (Auto) [place] % (Auto) Eos % (Auto) Baso % (Auto) Lymph # (Auto) [place] # (Auto) Eos # (Auto) Baso # (Auto) Abs Immat Gran (auto) Absolute Neuts (auto) Absolute Nucleated RBC 0.000 Nucleated RBC % (auto) 0.0 PT 12.6 INR 1.1 aPTT Heparin Protocol 28.1 L Sodium Potassium Chloride Carbon Dioxide Anion Gap BUN Creatinine Estim Creat Clear Calc Estimated GFR POC Glucose 221 H Random Glucose Calcium Total Bilirubin AST ALT Alkaline Phosphatase Troponin I High Sens B-Natriuretic Peptide Total Protein Albumin COVID-19 ([facility]) [facility]19 Clin Com 05/03/22 05/03/22 05/03/22 05:48 05:48 08:26 WBC 9.2 RBC 4.70 Hgb 11.4 L Hct 37.3 L MCV 79.4 L MCH 24.3 L MCHC 30.6 L RDW 14.0 Plt Count 294 MPV 9.6 Immature Gran % (Auto) 0.4 Neut % (Auto) 57.8 Lymph % (Auto) 27.1 [place] % (Auto) 7.4 Eos % (Auto) 6.4 H Baso % (Auto) 0.9 Lymph # (Auto) 2.5 [place] # (Auto) 0.7 Eos # (Auto) 0.6 H Baso # (Auto) 0.1 Abs Immat Gran (auto) 0.04 H Absolute Neuts (auto) 5.3 Absolute Nucleated RBC 0.000 Nucleated RBC % (auto) 0.0 PT INR aPTT Heparin Protocol Sodium Potassium Chloride Carbon Dioxide Anion Gap BUN Creatinine Estim Creat Clear Calc Estimated GFR POC Glucose 167 H Random Glucose Calcium Total Bilirubin AST ALT Alkaline Phosphatase Troponin I High Sens 1371.2 H* B-Natriuretic Peptide Total Protein Albumin COVID-19 ([facility]) COVID-19 CareParent Discharge Plan Discharge Anticipated Discharge Date/Time: 05/03/22 09:52 Patient Disposition: Xfer Acute Care Hospital Discharge Diagnosis: NSTEMI Referrals: Florence Dickerson MD [Primary Care Provider] - 1 Week Discharge Medications: New alum-mag hydroxide-simeth [Maalox Advanced] 200-200-20 mg/5 mL suspension 5 ml PO 5XD PRN (Reason: dyspepsia) Qty: 355 0RF Rx Instructions: administer between meals and at bedtime heparin(porcine) in 0.45% NaCl 25,000 unit/250 mL Parenteral Solution 25,000 unit continuous IV infusion .Q0M Qty: 6000 0RF Rx Instructions: Follow institution heparin protocol metoprolol tartrate 25 mg tablet 25 mg PO BID Qty: 14 0RF aspirin 81 mg capsule 81 mg PO DAILY Qty: 30 0RF Continued omeprazole 40 mg capsule,delayed release(DR/EC) 40 mg PO DAILY polyethylene glycol 3350 [Gavilax] 17 gram/dose powder 17 g PO DAILY PRN (Reason: Constipation) naproxen 250 mg Tablet 250 mg PO BID PRN (Reason: Pain) Metamucil 3.4 gram/5.4 gram Powder 1 tbsp PO DAILY Rx Instructions: mix into at least 8 oz of water or juice before administering Jardiance 25 mg tablet 25 mg PO DAILY metformin 1,000 mg tablet 1,000 mg PO BID levothyroxine 75 mcg tablet 75 mcg PO DAILY losartan-hydrochlorothiazide 100-25 mg tablet 1 tab PO DAILY glipizide 10 mg tablet extended release 24hr 10 mg PO BID atorvastatin 80 mg tablet 80 mg PO DAILY Discharge Orders: Discharge Order (Routine); Ordered 05/03/22 Ordered By: Anil Elmore Diet: Advance to usual diet Activity on Discharge: As tolerated Stand Alone Forms: Patient Portal Discharge page Care Plan Goals: Full cardiac work up at [facility] Concerns: Heart attack Plan of Treatment: Transfer to [facility] for cardiac catherization Medical management (ASA, metoprolol, Lipitor and Heparin) Assessment: as above Patient Instructions: Chest Pain (ED), Gastroesophageal Reflux Disease (ED), Indigestion (ED)
[2022-05-03] MEDS: 0.9 % Sodium Chloride Flush 3 ML SYRINGE IVFLUSH ×2 (10:07→17:30)
[2022-05-03] MEDS: Acetaminophen 325 MG TABLET 650 MG PO (10:07)
--- NOTE | 2022-05-03 10:15 | PM.CNCAR ---
History of Present Illness History of Present Illness Date of Service: 05/03/22 Chief complaint: Chest pain Narrative: This is a cardiology consultation regarding NSTEMI. Patient was seen in the clinic the beginning of this year. At that time had reported chest pain only at nighttime but not during exertion. Perfusion imaging was unremarkable. Subsequently, it seems that he was still getting chest pains but with exertion but were not aware of it. Over the last month, this has been progressive. Daughter was a physician states that patient is a poor historian and has not been clear with his history. Troponins were checked and they were abnormal suggestive of non ST elevation myocardial infarction. Currently is completely pain-free. Has risk factors including hypertension, diabetes, dyslipidemia. Review of Systems Review of Systems: Yes all other systems are reviewed and are negative Constitutional: Constitutional: Reports as per HPI Eyes: Eyes: Reports as per HPI ENT: Reports as per HPI Cardiovascular: Cardiovascular: Reports as per HPI, Denies acrocyanosis, Denies cool extremities, Reports chest pain, Denies leg edema, Denies lightheadedness, Denies palpitations and Denies dyspnea Respiratory: Respiratory: Reports as per HPI, Reports no additional respiratory complaints and Denies dyspnea Gastrointestinal: Gastrointestinal: Reports as per HPI and Reports no additional gastrointestinal complaints Genitourinary: Genitourinary: Reports no additional male genitourinary complaints and Reports as per HPI Musculoskeletal: Musculoskeletal: Reports no additional musculoskeletal complaints and Reports as per HPI Integumentary/Breasts: Skin/Breast: Reports system reviewed and no additional complaints, except as docu Neurologic: Reports system reviewed and no additional complaints, except as documented and Reports as per HPI Psychiatric: Psychiatric: Reports no additional psychiatric complaints and Reports as per HPI Endocrine: Endocrine: Reports no additional endocrine complaints, Reports as per HPI and Denies palpitations Hematologic/Lymphatic: Hematologic/Lymphatic: Reports no additional hematologic/lymphatic complaints and Reports as per HPI Allergic/Immunologic: Allergic/Immunologic: Reports no additional allergic/immunologic complaints and Reports as per HPI PMF Past Medical History Medical History Essential hypertension Other and unspecified hyperlipidemia Type 2 diabetes mellitus with unspecified complications Family History Family History Father No problems noted. Mother No problems noted. Surgical History Surgical History No pertinent past surgical history Social History Social History Household Members: Spouse Housing: Apartment Do you presently have visiting nurse or other home services: No Patient Tobacco Use Status: Never used Tobacco Use of substances other than those prescribed or required for medical reasons: No Have you been hit, kicked, punched, or otherwise hurt by someone within the past year? If so, by whom?: No Do you feel safe in your current relationship?: Yes Is there a partner from a previous relationship who is making you feel unsafe now?: No Are you made to feel afraid or neglected: No Advance Directives: No Do you have thoughts of harming others: None Do you have a plan to hurt others: No Plan Recently lost weight without trying: Yes How much weight loss: 2-13 pounds Eating poorly because of decreased appetite: No Nutrition screen score: 3 Nutrition Risks: No Nutritional Risk Poor oral hygiene: No Meds Allergies Allergy/AdvReac Type Severity Reaction Status Date / Time Penicillins [PENICILLINS] Allergy Intermediate RASH Verified 06/09/21 09:00 lisinopril Allergy Unknown Itching Verified 06/09/21 09:00 Active Medications: Current Medications Acetaminophen (Acetaminophen 325 Mg Tablet) 650 mg PO Q6H PRN PRN Reason: Pain, Mild (Pain Scale 1-3) Last Admin: 05/03/22 10:07 Dose: 650 mg Dextrose (Dextrose 50 % 25 Gm/50 Ml Syringe) 25 gm IVPUSH Q15M PRN; Protocol PRN Reason: per Hypoglycemia Standing Ord. Glucose (Glucose Gel 15 Gm Gel..Gram.) 15 gm PO Q15M PRN; Protocol PRN Reason: per Hypoglycemia Standing Ord. Heparin Sodium (Porcine) (Heparin Sodium,Porcine 5,000 Unit/Ml Vial) 4,200 unit IVPUSH PROTOCOL BOLUS PRN; Protocol PRN Reason: 40 unit/kg - Heparin Protocol Heparin Sodium (Porcine) (Heparin Sodium,Porcine 5,000 Unit/Ml Vial) 8,400 unit IVPUSH PROTOCOL BOLUS PRN; Protocol PRN Reason: 80 unit/kg - Heparin Protocol Heparin Sodium/Sodium Chloride (Heparin Sodium,Porcine/1/2ns) 25,000 unit in 250 mls @ 0 mls/hr IVCONT .Q0M [facility]; Protocol Last Admin: 05/03/22 03:50 Dose: 14 units/kg/hr, 14.69 mls/hr Insulin Human Lispro (Insulin Lispro 100 Unit/Ml 3 Ml Vial) 0 unit SUBCUT Q6H [facility]; Protocol Last Admin: 05/03/22 10:07 Dose: Not Given Melatonin (Melatonin 3 Mg Tablet) 6 mg PO BEDTIME PRN PRN Reason: Insomnia Nitroglycerin (Nitroglycerin 0.4 Mg Tab.Subl) 0.4 mg SUBLINGUAL Q5MX3 PRN PRN Reason: chest pain Ondansetron HCl (Ondansetron Hcl 4 Mg/2 Ml Vial) 4 mg IVPUSH Q8H PRN PRN Reason: Nausea and Vomiting Pharmacy Consult (Consult Rx Perform Med Rec) 1 each MISCELLANE ONCE PRN PRN Reason: Consult order Sodium Chloride (0.9 % Sodium Chloride Flush 3 Ml Syringe) 3 ml IVFLUSH QSHIFT [facility] Last Admin: 05/03/22 10:07 Dose: 3 ml Home Medications Medication Instructions Recorded Confirmed Last Taken Type atorvastatin 80 mg tablet 80 mg PO DAILY 04/15/21 05/03/22 Unknown History empagliflozin 25 mg tablet 25 mg PO DAILY 04/15/21 05/03/22 Unknown History (Jardiance) glipizide 10 mg tablet, extended 10 mg PO BID 04/15/21 05/03/22 Unknown History release 24 hr levothyroxine 75 mcg tablet 75 mcg PO DAILY 04/15/21 05/03/22 Unknown History losartan 100 1 tab PO DAILY 04/15/21 05/03/22 Unknown History mg-hydrochlorothiazide 25 mg tablet metformin 1,000 mg tablet 1,000 mg PO BID 04/15/21 05/03/22 Unknown History naproxen 250 mg tablet 250 mg PO BID PRN Pain 05/03/22 05/03/22 Unknown History omeprazole 40 mg capsule,delayed 40 mg PO DAILY 05/03/22 05/03/22 Unknown History release polyethylene glycol 3350 17 17 g PO DAILY PRN Constipation 05/03/22 05/03/22 Unknown History gram/dose oral powder (Gavilax) psyllium husk 3.4 gram/5.4 gram 1 tbsp PO DAILY 05/03/22 05/03/22 Unknown History oral powder (Metamucil) Physical Exam Vital Signs: Vital Signs: Last Vital Signs Temp 97.4 F 05/03/22 08:00 Pulse 92 05/03/22 08:00 Resp 16 05/03/22 08:00 BP 127/69 05/03/22 08:00 Pulse Ox 98 05/03/22 08:00 O2 Del Method 05/03/22 08:00 BMI result Body Mass Index 23.5 Const: General: comfortable and no acute distress Orientation/consciousness: patient oriented x3 HEENT: Other: Unremarkable Head: Yes normal to inspection Neck: Neck: Yes normal visual inspection Chest: Chest palpation & inspection: normal inspection of the chest Resp: Auscultation: clear to auscultation bilaterally Cardio: Palpation: normal PMI Heart sounds: S1 normal heart sound present, S2 normal heart sound present, no gallops, no murmurs and no rubs GI: Palpation (GI): Soft to palpation Back/Spine/Pelvis: Other: unremarkable Skin: General skin exam: no rashes or lesions noted Neuro: General: patient oriented x3 Extrem: General: Yes normal to inspection Psych: Mental Status: mental status grossly normal Objective Labs and Meds Result diagrams: 05/03/22 05:48 05/03/22 00:35 Lab results: Laboratory Results - last 24 hr 05/03/22 05/03/22 05/03/22 00:35 00:35 00:35 WBC 8.7 RBC 4.96 Hgb 12.0 L Hct 38.7 L MCV 78.0 L MCH 24.2 L MCHC 31.0 RDW 14.1 Plt Count 285 MPV 9.2 L Immature Gran % (Auto) 0.3 Neut % (Auto) 63.4 Lymph % (Auto) 22.3 [place] % (Auto) 8.0 Eos % (Auto) 5.2 H Baso % (Auto) 0.8 Lymph # (Auto) 1.9 [place] # (Auto) 0.7 Eos # (Auto) 0.5 H Baso # (Auto) 0.1 Abs Immat Gran (auto) 0.03 Absolute Neuts (auto) 5.5 Absolute Nucleated RBC 0.000 Nucleated RBC % (auto) 0.0 PT INR aPTT Heparin Protocol Sodium 135 Potassium 4.0 Chloride 102 Carbon Dioxide 21 L Anion Gap 16 BUN 13 Creatinine 0.99 Estim Creat Clear Calc 98.0 Estimated GFR > 60 POC Glucose Random Glucose 196 H Calcium 9.5 D Total Bilirubin 0.4 AST 20 ALT 19 Alkaline Phosphatase 85 Troponin I High Sens 1001.3 H* B-Natriuretic Peptide Total Protein 7.3 Albumin 4.2 COVID-19 ([place]) COVID-19 [employer] 05/03/22 05/03/22 05/03/22 00:35 01:13 01:17 WBC RBC Hgb Hct MCV MCH MCHC RDW Plt Count MPV Immature Gran % (Auto) Neut % (Auto) Lymph % (Auto) [place] % (Auto) Eos % (Auto) Baso % (Auto) Lymph # (Auto) [place] # (Auto) Eos # (Auto) Baso # (Auto) Abs Immat Gran (auto) Absolute Neuts (auto) Absolute Nucleated RBC Nucleated RBC % (auto) PT INR aPTT Heparin Protocol Sodium Cancelled Potassium Cancelled Chloride Cancelled Carbon Dioxide Cancelled Anion Gap Cancelled BUN Cancelled Creatinine Cancelled Estim Creat Clear Calc Cancelled Estimated GFR Cancelled POC Glucose Random Glucose Cancelled Calcium Cancelled Total Bilirubin Cancelled AST Cancelled ALT Cancelled Alkaline Phosphatase Cancelled Troponin I High Sens B-Natriuretic Peptide 97 Total Protein Cancelled Albumin Cancelled COVID-19 ([place]) Negative [employer] See Note 05/03/22 05/03/22 05/03/22 01:17 01:17 03:14 WBC RBC Hgb Hct MCV MCH MCHC RDW Plt Count MPV Immature Gran % (Auto) Neut % (Auto) Lymph % (Auto) [place] % (Auto) Eos % (Auto) Baso % (Auto) Lymph # (Auto) [place] # (Auto) Eos # (Auto) Baso # (Auto) Abs Immat Gran (auto) Absolute Neuts (auto) Absolute Nucleated RBC Nucleated RBC % (auto) PT 13.1 INR 1.1 aPTT Heparin Protocol Sodium Potassium Chloride Carbon Dioxide Anion Gap BUN Creatinine Estim Creat Clear Calc Estimated GFR POC Glucose Random Glucose Calcium Total Bilirubin AST ALT Alkaline Phosphatase Troponin I High Sens Cancelled 1486.1 H* B-Natriuretic Peptide Total Protein Albumin COVID-19 ([place]) COVID-19 [employer] 05/03/22 05/03/22 05/03/22 03:14 03:14 03:25 WBC 10.4 RBC 4.81 Hgb 11.8 L Hct 37.6 L MCV 78.2 L MCH 24.5 L MCHC 31.4 RDW 14.2 Plt Count 279 MPV 9.1 L Immature Gran % (Auto) Neut % (Auto) Lymph % (Auto) [place] % (Auto) Eos % (Auto) Baso % (Auto) Lymph # (Auto) [place] # (Auto) Eos # (Auto) Baso # (Auto) Abs Immat Gran (auto) Absolute Neuts (auto) Absolute Nucleated RBC 0.000 Nucleated RBC % (auto) 0.0 PT 12.6 INR 1.1 aPTT Heparin Protocol 28.1 L Sodium Potassium Chloride Carbon Dioxide Anion Gap BUN Creatinine Estim Creat Clear Calc Estimated GFR POC Glucose 221 H Random Glucose Calcium Total Bilirubin AST ALT Alkaline Phosphatase Troponin I High Sens B-Natriuretic Peptide Total Protein Albumin COVID-19 ([facility]) COVID-19 Clin Com 05/03/22 05/03/22 05/03/22 05:48 05:48 08:26 WBC 9.2 RBC 4.70 Hgb 11.4 L Hct 37.3 L MCV 79.4 L MCH 24.3 L MCHC 30.6 L RDW 14.0 Plt Count 294 MPV 9.6 Immature Gran % (Auto) 0.4 Neut % (Auto) 57.8 Lymph % (Auto) 27.1 [place] % (Auto) 7.4 Eos % (Auto) 6.4 H Baso % (Auto) 0.9 Lymph # (Auto) 2.5 [place] # (Auto) 0.7 Eos # (Auto) 0.6 H Baso # (Auto) 0.1 Abs Immat Gran (auto) 0.04 H Absolute Neuts (auto) 5.3 Absolute Nucleated RBC 0.000 Nucleated RBC % (auto) 0.0 PT INR aPTT Heparin Protocol Sodium Potassium Chloride Carbon Dioxide Anion Gap BUN Creatinine Estim Creat Clear Calc Estimated GFR POC Glucose 167 H Random Glucose Calcium Total Bilirubin AST ALT Alkaline Phosphatase Troponin I High Sens 1371.2 H* B-Natriuretic Peptide Total Protein Albumin COVID-19 ([facility]) COVID-19 Clin Com ECG Interpretation: EKG with sinus tachycardia, 106/Min; nonspecific ST-T changes. Normal [place] and corrected QT. Imaging Radiologist's impression: Impressions Chest CTA 05/03/22 01:17 IMPRESSION: CT angiography of the chest: *No acute abnormalities identified. No thoracic aortic dissection or thoracic aortic aneurysm. *No evidence of pulmonary emboli. *Partial visualization of moderate scattered coronary artery calcific atherosclerosis predominantly within the left anterior descending and circumflex coronary arteries. *Partial visualization of previously noted scattered pulmonary nodules measuring up to 5 mm in diameter (CT chest 04/28/2022). Per the 2017 revised Fleischner Society guidelines, no routine follow-up is necessarily required in low-risk patients, and consideration of 12 month follow-up CT is recommended for patients at high-risk for the development of pulmonary neoplasm. Assessment and Plan (1) NSTEMI (non-ST elevated myocardial infarction): Status: Acute Plan History is now suggestive of progressive angina after speaking to his daughter who is a physician but patient himself is vague. EKG with nonspecific ST-T changes. Troponins are clearly elevated. Overall, will treat this as NSTEMI. IV heparin drip. Aspirin. High-dose statins. Will transfer to [facility] for cardiac catheterization. Discussed about this with patient as well as daughter and they are in agreement. Echocardiogram to be completed. Time Spent With Patient Time: Total time managing care of this patient today _70___ minutes. Procedures Date of Service Date of Service: 05/03/22
--- NOTE | 2022-05-03 10:20 | CA_ITS ---
Transthoracic Echocardiogram Patient (Last, First, Middle): Siddharth Dang, Gender: Male Date of : 1960 Age: 62 Procedure Date: 05/03/2022 Procedure Type: Transthoracic Echocardiogram Location: [facility] [place] Height: 185.42 cm Weight: 80.74 kg BSA: 2.05 m2 Heart Rate: 75 bpm BP: 127 / 68 mmHg Folder Taper Operator: TOBIN Referring MD: Javan Noel MD Symptoms: NSTEMI Study Quality: Poor/Contrast ECG Rhythm: Sinus Conclusions: - The left ventricular systolic function is low normal. The calculated ejection fraction is 53% by biplane method. - The basal inferior and basal inferoseptal segments are akinetic. - There is mildly decreased right ventricular systolic function. - No obvious valvular pathology seen on this study. Findings Procedure Information Contrast agent, definity, is being given per protocol without apparent complications. Left Ventricle Normal left ventricular cavity size. There is normal left ventricular wall thickness. The left ventricular systolic function is low normal. The calculated ejection fraction is 53% by biplane method. There is evidence of regional wall motion abnormalities. Wall Motion Rest Echo Findings The basal inferior and basal inferoseptal segments are akinetic. Right Ventricle Normal right ventricular cavity size. There is mildly decreased right ventricular systolic function. Atria Both atria are normal in size. Aortic Valve There is a normal trileaflet aortic valve. There is mild calcification of the aortic valve. There is no aortic valve stenosis. There is no aortic valve regurgitation. Mitral Valve There is mild anterior mitral leaflet thickening. There is mild mitral annular calcification. There is no mitral valve regurgitation. There is no mitral valve stenosis. Pulmonic Valve The pulmonic valve is likely normal. Tricuspid Valve The tricuspid valve was not well visualized. There is no tricuspid valve regurgitation. Tricuspid regurgitation envelope is inadequate for calculation of right ventricular systolic pressure. Great Vessels The asc aorta is normal in size. Venous The inferior vena cava is normal in size and collapses greater than 50% with inspiration. Pericardium/Pleural There is no evidence of pericardial effusion. Prior Study Comparison Changes noted compared to prior study dated: 06/03/2021. See comment on wall motion. Recommendations, Care & Conclusions No obvious valvular pathology seen on this study. Measurements 2D Linear Measurements IVSd: 0.81 0.6-0.9/0.6-1.0 cm LVIDd: 5.20 3.9-5.3/4.2-5.9 cm LVIDd Index: 2.54 2.4-3.2/2.2-3.1 cm/m2 LVIDs: 4.41 2.0-3.6 cm LVPWd: 0.85 0.7-1.1 cm LA Diam: 4.30 2.7-3.8/3.0-4.0 cm LAIDs Index: 2.10 1.5-2.3 cm/m2 LV Mass: 188.78 67-162/88-224 g LV Mass Index: 92.09 43-95/49-115 g/m2 LVOT Diam: 2.60 3.0+(-)1.3 cm 2D Systolic Function EF 4C: 49.70 >55% EF 2C: 56.70 >55% EF BiP: 53.00 >55% Mitral Valve MV Pk E: 0.99 MV PK A: 0.40 MV Decel Time: 178.00 E/A: 2.50 E'Lateral: 9.25 E'Medial: 6.53 E/E' Med: 15.20 E/E' Lat: 10.70 PHT: 52.00 MVA PHT: 4.23 Decel Wallace: 5.56 Aortic Valve AoV Pk Francisco Javier: 1.16 AoV Mn Francisco Javier: 0.87 AoV VTI: 0.24 AoV Pk Grad: 5.00 Aov Mn Grad: 3.00 YASMIN Cont.VTI: 2.76 LVOT LVOT Pk Francisco Javier: 0.59 LVOT Mn Francisco Javier: 0.44 LVOT VTI: 0.12 LVOT Pk Grad: 1.00 LVOT Mn Grad: 1.00 LVOT Diam: 2.60 LVOT Area: 5.31 Diastolic Function MV Pk E: 0.99 MV Pk A: 0.40 E/A: 2.50 E'Medial: 6.53 E/E' Med: 15.20 E' Laterial: 9.25 E/E' Lat: 10.70 Right Ventricle TAPSE (mm): 15.50 TVS' Francisco Javier: 6.97 Tricuspid Valve RA Press: 3.00 Great Vessels Aorta Sinus of Valsalva: 3.20 2.0-3.5 cm Ao Asc: 3.60 2.1-3.4 cm Pulmonary Valve PV Pk Francisco Javier: 0.83 Peak PV Grad: 3.00 Updated in Other Vendor System with Status of Final Javan Noel MD electronically signed on 05/03/2022 12:31:01 PM with status of Final
--- NOTE | 2022-05-03 10:24 | MHC.CM.PN ---
Patient is an Acute Transfer to [facility] via ALS.
[2022-05-03 10:40] LABS: PTT Heparin Drip 76.7 SEC (53-77.9)
--- NOTE | 2022-05-03 11:45 | MHC.CM.PN ---
pt to be transferred to [facility]
[2022-05-03] MEDS: glipiZIDE XL 10 MG TAB.ER.24 PO (12:06)
[2022-05-03] MEDS: Levothyroxine Sodium 75 MCG TABLET PO (12:06)
[2022-05-03] MEDS: Omeprazole 40 MG CAPSULE.DR PO (12:06)
[2022-05-03 14:09] LABS: Anion Gap 16 (12-20); Blood Urea Nitrogen 13 mg/dL (9-16); Calcium 9.2 mg/dL (8.4-10.2); Carbon Dioxide 21 mmol/L (22-29); Chloride 102 mmol/L (96-108); Creatinine Clr Calc Pharmacy 93.8; Estimated Glomerular Filt Rate > 60; Glucose Random 163 mg/dL (60-115); Sodium 135 mmol/L (135-145)
[2022-05-03 17:03] LABS: Glucose, Whole Blood 230 mg/dL (60-115)
== END 2022-05-03 18:15 | disposition short-term general hospital (02) | DRG 190 ==
LOC: HO.ED 01:39 → HO.EDOVER 03:09 → HO.IMC 06:03
PROVIDERS: Physician Assistant; Admitting Provider Student in an Organized Health Care Education/Training Program; Emergency Provider Emergency Medicine; PCP Internal Medicine; Visit Provider Internal Medicine
DX: I21.4 Non-ST elevation (NSTEMI) myocardial infarction (principal); E03.9 Hypothyroidism, unspecified; K21.9 Gastro-esophageal reflux disease without esophagitis; I10 Essential (primary) hypertension; E78.49 Other hyperlipidemia; Z20.822 Contact with and (suspected) exposure to COVID-19; Z79.84 Long term (current) use of oral hypoglycemic drugs; Z88.0 Allergy status to penicillin; Z88.8 Allergy status to other drugs, medicaments and biological substances; Z79.890 Hormone replacement therapy; Z79.899 Other long term (current) drug therapy
CPT/HCPCS: 36415; 71275; 80048; 80053; 82947; 83880; 84484; 85025; 85027; 85610; 85730; 87635; 93005; 93306; 99285; J2270; Q9957; Q9967

== ENCOUNTER → 2022-05-19 08:42 | Outpatient (BNVA) | payer OTHER, SELFPAY | PROVIDERS: PCP Internal Medicine; Visit Provider Internal Medicine | DX: I25.2 Old myocardial infarction (principal); I10 Essential (primary) hypertension; E78.5 Hyperlipidemia, unspecified; E11.8 Type 2 diabetes mellitus with unspecified complications | CPT/HCPCS: 93005; 99212 ==

== ENCOUNTER 2022-05-25 08:22 | Outpatient (RCR) | payer OTHER, SELFPAY | END 2022-06-07 14:40 | disposition home or self-care (01) | LOC: HO.WCC 08:22 | PROVIDERS: PCP Internal Medicine; Visit Provider Physician Assistant | DX: Z09 Encounter for follow-up examination after completed treatment for conditions other than malignant neoplasm (principal); Q84.5 Enlarged and hypertrophic nails; M79.674 Pain in right toe(s); E11.9 Type 2 diabetes mellitus without complications; I10 Essential (primary) hypertension; I25.2 Old myocardial infarction; Z79.84 Long term (current) use of oral hypoglycemic drugs; Z79.2 Long term (current) use of antibiotics | CPT/HCPCS: 99213 ==

== ENCOUNTER 2022-07-05 07:52 | Outpatient (REF) | payer OTHER, SELFPAY ==
[2022-07-05 08:03] LABS: MANUAL DIFF FLAG NO
[2022-07-05 08:33] LABS: Basophils Absolute Auto 0.1 X10*3/uL (0.0-0.2); Basophils Percent Auto 0.7 % (0-2); Eosinophils Absolute Auto 0.4 X10*3/uL (0.0-0.4); Eosinophils Percent Auto 4.8 % (0-4); Hematocrit 40.1 % (42.0-52.0); Hemoglobin 12.1 g/dl (14.0-18.0); Imm Gran Abs Auto 0.04 X10*3/uL (0.00-0.03); Imm Gran Pct Auto 0.4 % (0.0-0.4); Lymphocytes Absolute Auto 1.5 X10*3/uL (1.2-4.9); Lymphocytes Percent Auto 16.8 % (20-40); Mean Corpuscular HGB Conc 30.2 g/dl (31.0-36.0); Mean Corpuscular Hemoglobin 24.2 pg (27.0-33.0); Mean Corpuscular Volume 80.4 fL (80.0-98.0); Mean Platelet Volume 9.6 fL (9.4-12.4); Monocytes Absolute Auto 0.8 X10*3/uL (0.1-1.2); Monocytes Percent Auto 8.7 % (2-11); Neutrophils Absolute Auto 6.2 x10*3/uL (2.0-8.3); Neutrophils Percent Auto 68.6 % (45-73); Platelet Count 284 X10*3/uL (160-400); Red Blood Count 4.99 X10*6/uL (4.60-5.80); Red Cell Distribution Width 14.5 % (11.0-16.0)
[2022-07-05 08:38] LABS: Estimated Average Glucose 166 mg/dL; Hemoglobin A1c % 7.4 %
[2022-07-05 09:10] LABS: Alanine Aminotransferase 20 U/L (0-40); Albumin Level 4.2 g/dL (3.5-5.0); Alkaline Phosphatase 96 U/L (39-117); Anion Gap 13 (12-20); Aspartate Amino Transferase 19 U/L (5-37); Bilirubin Total 0.8 mg/dL (0.0-1.0); Blood Urea Nitrogen 11 mg/dL (9-16); Calcium 9.2 mg/dL (8.4-10.2); Carbon Dioxide 20 mmol/L (22-29); Chloride 106 mmol/L (96-108); Cholesterol 109 mg/dL; Estimated Glomerular Filt Rate > 60; Glucose Random 129 mg/dL (60-115); HDL Cholesterol 32 mg/dL; LDL Cholesterol Calculated 52 mg/dl; Potassium 4.3 mmol/L (3.3-5.1); Sodium 135 mmol/L (135-145); Total Protein 6.9 g/dL (6.5-8.0); Triglycerides 126 mg/dL
[2022-07-05 09:27] LABS: Thyroid Stimulating Hormone 1.52 uIU/mL (0.32-4.0)
== END 2022-07-05 07:53 | disposition home or self-care (01) ==
LOC: HO.LAB 07:52
PROVIDERS: PCP Internal Medicine; Visit Provider Internal Medicine
DX: E11.65 Type 2 diabetes mellitus with hyperglycemia (principal); E78.00 Pure hypercholesterolemia, unspecified; I21.4 Non-ST elevation (NSTEMI) myocardial infarction; Z95.818 Presence of other cardiac implants and grafts
CPT/HCPCS: 36415; 80053; 80061; 83036; 84443; 85025

== ENCOUNTER 2022-08-04 08:12 | Outpatient (REF) | payer OTHER, SELFPAY ==
[2022-08-04 10:19] LABS: Alanine Aminotransferase 21 U/L (0-40); Albumin Level 4.3 g/dL (3.5-5.0); Alkaline Phosphatase 105 U/L (39-117); Aspartate Amino Transferase 22 U/L (5-37); Bilirubin Direct 0.2 mg/dL (0.0-0.5); Bilirubin Total 0.8 mg/dL (0.0-1.0); Cholesterol 110 mg/dL; HDL Cholesterol 31 mg/dL; LDL Cholesterol Calculated 47 mg/dl; Total Protein 7.2 g/dL (6.5-8.0); Triglycerides 160 mg/dL
== END 2022-08-04 08:13 | disposition home or self-care (01) ==
LOC: HO.LAB 08:12
PROVIDERS: PCP Internal Medicine; Visit Provider Internal Medicine
DX: E78.5 Hyperlipidemia, unspecified (principal); I21.4 Non-ST elevation (NSTEMI) myocardial infarction; I25.10 Atherosclerotic heart disease of native coronary artery without angina pectoris
CPT/HCPCS: 36415; 80061; 80076

== ENCOUNTER → 2022-08-18 13:35 | Outpatient (BNVA) | payer OTHER, SELFPAY | PROVIDERS: PCP Internal Medicine; Referring Provider Internal Medicine; Visit Provider Internal Medicine | DX: I21.4 Non-ST elevation (NSTEMI) myocardial infarction (principal); E11.9 Type 2 diabetes mellitus without complications; I10 Essential (primary) hypertension; E78.5 Hyperlipidemia, unspecified; Z98.890 Other specified postprocedural states; Z95.5 Presence of coronary angioplasty implant and graft | CPT/HCPCS: 99212 ==

== ENCOUNTER 2022-10-07 08:04 | Outpatient (REF) | payer OTHER, SELFPAY ==
[2022-10-07 08:12] LABS: MANUAL DIFF FLAG NO
[2022-10-07 08:44] LABS: Basophils Absolute Auto 0.1 X10*3/uL (0.0-0.2); Basophils Percent Auto 0.5 % (0-2); Eosinophils Absolute Auto 0.6 X10*3/uL (0.0-0.4); Eosinophils Percent Auto 6.1 % (0-4); Hematocrit 39.5 % (42.0-52.0); Hemoglobin 11.8 g/dl (14.0-18.0); Imm Gran Abs Auto 0.04 X10*3/uL (0.00-0.03); Imm Gran Pct Auto 0.4 % (0.0-0.4); Lymphocytes Absolute Auto 1.5 X10*3/uL (1.2-4.9); Lymphocytes Percent Auto 15.9 % (20-40); Mean Corpuscular HGB Conc 29.9 g/dl (31.0-36.0); Mean Corpuscular Hemoglobin 24.3 pg (27.0-33.0); Mean Corpuscular Volume 81.4 fL (80.0-98.0); Mean Platelet Volume 10.5 fL (9.4-12.4); Monocytes Absolute Auto 0.8 X10*3/uL (0.1-1.2); Monocytes Percent Auto 8.1 % (2-11); Neutrophils Absolute Auto 6.7 x10*3/uL (2.0-8.3); Platelet Count 300 X10*3/uL (160-400); Red Blood Count 4.85 X10*6/uL (4.60-5.80); Red Cell Distribution Width 14.7 % (11.0-16.0); White Blood Count 9.7 X10*3/uL (4.8-10.8)
[2022-10-07 09:12] LABS: Alanine Aminotransferase 76 U/L (0-40); Albumin Level 4.2 g/dL (3.5-5.0); Alkaline Phosphatase 107 U/L (39-117); Anion Gap 16 (12-20); Aspartate Amino Transferase 71 U/L (5-37); Bilirubin Total 0.8 mg/dL (0.0-1.0); Blood Urea Nitrogen 9 mg/dL (9-16); Calcium 9.3 mg/dL (8.4-10.2); Carbon Dioxide 23 mmol/L (22-29); Chloride 104 mmol/L (96-108); Estimated Glomerular Filt Rate > 60; Glucose Random 121 mg/dL (60-115); Potassium 4.7 mmol/L (3.3-5.1); Sodium 138 mmol/L (135-145); Total Protein 7.1 g/dL (6.5-8.0)
[2022-10-07 09:18] LABS: Estimated Average Glucose 177 mg/dL; Hemoglobin A1c % 7.8 %
== END 2022-10-07 08:05 | disposition home or self-care (01) ==
LOC: HO.LAB 08:04
PROVIDERS: PCP Internal Medicine; Visit Provider Internal Medicine
DX: E03.9 Hypothyroidism, unspecified (principal); E11.40 Type 2 diabetes mellitus with diabetic neuropathy, unspecified; E78.00 Pure hypercholesterolemia, unspecified; R11.0 Nausea; R63.4 Abnormal weight loss
CPT/HCPCS: 36415; 80053; 83036; 85025

== ENCOUNTER 2023-01-06 08:19 | Outpatient (REF) | payer OTHER, SELFPAY ==
[2023-01-06 09:05] LABS: Estimated Average Glucose 166 mg/dL; Hemoglobin A1c % 7.4 %
[2023-01-06 09:54] LABS: Alanine Aminotransferase 29 U/L (0-40); Albumin Level 4.2 g/dL (3.5-5.0); Alkaline Phosphatase 76 U/L (39-117); Anion Gap 12 (12-20); Aspartate Amino Transferase 24 U/L (5-37); Bilirubin Total 0.6 mg/dL (0.0-1.0); Blood Urea Nitrogen 12 mg/dL (9-16); Calcium 9.3 mg/dL (8.4-10.2); Carbon Dioxide 23 mmol/L (22-29); Chloride 106 mmol/L (96-108); Estimated Glomerular Filt Rate > 60; Glucose Random 143 mg/dL (60-115); Potassium 4.2 mmol/L (3.3-5.1); Sodium 137 mmol/L (135-145); Total Protein 7.6 g/dL (6.5-8.0)
[2023-01-06 09:57] LABS: Thyroid Stimulating Hormone 3.02 uIU/mL (0.32-4.0)
== END 2023-01-06 08:20 | disposition home or self-care (01) ==
LOC: HO.LAB 08:19
PROVIDERS: PCP Internal Medicine; Visit Provider Internal Medicine
DX: E03.9 Hypothyroidism, unspecified (principal); E11.621 Type 2 diabetes mellitus with foot ulcer; E11.65 Type 2 diabetes mellitus with hyperglycemia; I10 Essential (primary) hypertension
CPT/HCPCS: 36415; 80053; 83036; 84443

== ENCOUNTER 2023-01-25 13:35 | Outpatient (AMB) | payer OTHER, SELFPAY ==
--- NOTE | 2023-01-25 13:38 | A.OFFVIS_ITS ---
Intake Vital Signs 01/25/23 13:42 Height 6 ft 1 in Weight 236 lb 5.369 oz BMI 31.2 BP 114/58 L Blood Pressure Location Lt brachial Position Sitting Pulse 85 Intake Visit Reasons: f/up per hs Intake Note: follow up Core Loader Required: No Accompanied by: Self / Same As Patient Allergies Penicillins [PENICILLINS] Allergy (Intermediate, Verified 01/25/23 13:44) RASH lisinopril Allergy (Unknown, Verified 01/25/23 13:44) Itching Medication List - Last Reconciled 01/25/23 by Javan Noel MD alum-mag hydroxide-simeth 200-200-20 mg/5 mL (Maalox Advanced) 5 mL PO 5XD PRN aspirin 81 mg PO DAILY atorvastatin 80 mg PO DAILY empagliflozin (Jardiance) 25 mg PO DAILY folic acid 1 mg PO DAILY levothyroxine 75 mcg PO DAILY losartan 100 mg PO DAILY metformin 1,000 mg PO BID metoprolol succinate ER 100 mg PO DAILY nitroglycerin 0.4 mg sublingual Q5M PRN ticagrelor (Brilinta) 90 mg PO BID 90 days HPI HPI Comments History of Present Illness Details Siddharth returns for follow-up. Last year, he had chest pain and ruled in for NSTEMI. Underwent cardiac catheterization and right coronary artery stenting. Overall, he is doing good. No new complaints. Multiple cardiovascular risk factors including diabetes, hypertension dyslipidemia. [facility] Medical History (Updated 01/25/23 @ 15:42 by Javan Noel MD) Atherosclerotic cardiovascular disease Essential hypertension Gastroesophageal reflux disease Other and unspecified hyperlipidemia Precordial chest pain Type 2 diabetes mellitus with unspecified complications Surgical History H/O toe surgery Family History Father No problems noted. Mother No problems noted. Social History Household Members: Spouse Housing: Apartment Do you presently have visiting nurse or other home services: No Alcohol intake: current Alcohol intake frequency: 0-2 drinks per day Patient Tobacco Use Status: Never used Tobacco service: No Review of Systems Const Denies weakness ENT Denies dizziness Card Denies chest pain, Denies chest pain with activity, Denies syncope, Denies rapid heart rate, Denies pedal edema, Denies edema, Denies leg edema, Denies lightheadedness, Denies palpitations, Denies dyspnea, Denies dyspnea on exertion and Denies orthopnea Resp Denies cough, Denies dyspnea and Denies dyspnea on exertion GI Denies hematochezia and Denies change in stool character Musc Denies abnormal gait, Denies muscle cramps, Denies muscle weakness, Denies numbness, Denies radiating pain into limb and Denies tingling Neuro Denies abnormal gait, Denies dizziness, Denies syncope, Denies numbness, Denies tingling and Denies weakness Endo Denies palpitations Physical Exam Vital Signs: Last Vital Signs Pulse 85 01/25/23 13:42 BP 114/58 L 01/25/23 13:42 BMI result Body Mass Index 31.2 Const General: comfortable and no acute distress Orientation/consciousness: patient oriented x3 HEENT Other: Unremarkable Head: Yes normal to inspection Neck Neck: Yes normal visual inspection Chest Chest palpation & inspection: normal inspection of the chest Resp Auscultation: clear to auscultation bilaterally Cardio Palpation: normal PMI Heart sounds: S1 normal heart sound present, S2 normal heart sound present, no gallops, no murmurs and no rubs GI Palpation (GI): Soft to palpation Back/Spine/Pelvis Other: unremarkable Skin General skin exam: no rashes or lesions noted Neuro General: patient oriented x3 Extrem General: Yes normal to inspection Psych Mental Status: mental status grossly normal Assessment & Plan Assessment & Plan (1) Atherosclerotic cardiovascular disease: Code(s): I25.10 - Atherosclerotic heart disease of [place] coronary artery without angina pectoris (2) Type 2 diabetes mellitus with unspecified complications: Code(s): E11.8 - Type 2 diabetes mellitus with unspecified complications (3) Essential hypertension: Code(s): I10 - Essential (primary) hypertension (4) Other and unspecified hyperlipidemia: Code(s): E78.5 - Hyperlipidemia, unspecified Plan Cardiac catheterization data reviewed from 04/2022. Severe/95% distal RCA stenosis with occluded PDA. Status post PCI to the RCA. No significant disease elsewhere. Echocardiogram with LVEF of 53%. Basal inferior/inferoseptal akinesis. Mild decreased RV systolic function. Clinically, he does not really have any overt symptoms. Aspirin will be lifelong. Brilinta can be stopped at around 1 year riya from the time of stenting. Discussed about this today. Lipids are well controlled and he can continue statins. With regard to diabetes, hemoglobin A1c is 7.4%. Slightly elevated. He is on metformin and Jardiance. For blood pressure, he is on losartan and metoprolol. Stable in that regard. Follow-up in 6 months. In the interim, he will call us with concerns. Medications: Refilled ticagrelor (Brilinta) 90 mg PO BID 180 tabs 1RF 90 days Coding Level of Care Code Est Pt Level 4 (37331) Diagnoses Atherosclerotic cardiovascular disease I25.10 Type 2 diabetes mellitus with unspecified complications E11.8 Essential hypertension I10 Other and unspecified hyperlipidemia E78.5
[2023-01-25 13:42] VITALS: BP 114/58; PULSE 85; BMI 31.2
== END 2023-01-25 14:00 | disposition home or self-care (01) ==
PROVIDERS: PCP Internal Medicine; Referring Provider Internal Medicine; Visit Provider Internal Medicine
DX: I25.10 Atherosclerotic heart disease of native coronary artery without angina pectoris (principal); E11.8 Type 2 diabetes mellitus with unspecified complications; I10 Essential (primary) hypertension; E78.5 Hyperlipidemia, unspecified
CPT/HCPCS: 99214

== ENCOUNTER → 2023-01-25 13:35 | Outpatient (BNVA) | payer OTHER, SELFPAY | PROVIDERS: PCP Internal Medicine; Referring Provider Internal Medicine; Visit Provider Internal Medicine | DX: I25.10 Atherosclerotic heart disease of native coronary artery without angina pectoris (principal); E11.8 Type 2 diabetes mellitus with unspecified complications; I10 Essential (primary) hypertension; E78.5 Hyperlipidemia, unspecified | CPT/HCPCS: 99212 ==

== ENCOUNTER 2023-04-07 08:12 | Outpatient (REF) | payer OTHER, SELFPAY ==
[2023-04-07 10:44] LABS: Estimated Average Glucose 192 mg/dL; Hemoglobin A1c % 8.3 % (<6.0)
[2023-04-07 11:03] LABS: Creatinine Urine 22.37 mg/dL; Microalbumin Urine < 5.0 mg/L
[2023-04-07 11:07] LABS: Alanine Aminotransferase 27 U/L (0-40); Albumin Level 4.2 g/dL (3.5-5.0); Alkaline Phosphatase 74 U/L (39-117); Anion Gap 11 (12-20); Aspartate Amino Transferase 23 U/L (5-37); Bilirubin Total 0.6 mg/dL (0.0-1.0); Blood Urea Nitrogen 11 mg/dL (9-16); Calcium 9.1 mg/dL (8.4-10.2); Carbon Dioxide 25 mmol/L (22-29); Chloride 104 mmol/L (96-108); Cholesterol 117 mg/dL (<200); Estimated Glomerular Filt Rate > 60; Glucose Random 147 mg/dL (60-115); HDL Cholesterol 32 mg/dL (>40); LDL Cholesterol Calculated 50 mg/dL (<100); Sodium 136 mmol/L (135-145); Total Protein 7.6 g/dL (6.5-8.0); Triglycerides 175 mg/dL (<150)
[2023-04-07 11:24] LABS: Prostate Specific Antigen Scr 0.37 ng/mL (<0.05-4.0); Vitamin B12 712 pg/mL (200-900)
== END 2023-04-07 08:13 | disposition home or self-care (01) ==
LOC: HO.LAB 08:12
PROVIDERS: PCP Internal Medicine; Visit Provider Internal Medicine
DX: Z00.00 Encounter for general adult medical examination without abnormal findings (principal); Z12.5 Encounter for screening for malignant neoplasm of prostate; N40.0 Benign prostatic hyperplasia without lower urinary tract symptoms; E78.00 Pure hypercholesterolemia, unspecified; E03.9 Hypothyroidism, unspecified; E11.65 Type 2 diabetes mellitus with hyperglycemia
CPT/HCPCS: 36415; 80053; 80061; 82043; 82570; 82607; 82746; 83036; 84153

== ENCOUNTER 2023-05-31 08:40 | Outpatient (AMB) | payer OTHER, SELFPAY ==
--- NOTE | 2023-05-31 08:44 | A.OFFVIS_ITS ---
Intake Vital Signs 05/31/23 08:45 Height 6 ft 1 in Weight 235 lb 14.314 oz BMI 31.1 BP 142/70 H Blood Pressure Location Lt brachial Position Sitting Pulse 94 Intake Visit Reasons: R/S 3 month follow up Intake Note: 3 month follow u p Heel Builder Required: No Accompanied by: Self / Same As Patient Allergies Penicillins [PENICILLINS] Allergy (Intermediate, Verified 05/31/23 08:45) RASH lisinopril Allergy (Unknown, Verified 05/31/23 08:45) Itching Medication List - Last Reconciled 05/31/23 by Javan Noel MD alum-mag hydroxide-simeth 200-200-20 mg/5 mL (Maalox Advanced) 5 mL PO 5XD PRN aspirin 81 mg PO DAILY atorvastatin 80 mg PO DAILY empagliflozin (Jardiance) 25 mg PO DAILY folic acid 1 mg PO DAILY glipizide ER 10 mg PO DAILY levothyroxine 75 mcg PO DAILY losartan 100 mg PO DAILY metformin 1,000 mg PO BID metoprolol succinate ER 100 mg PO DAILY nitroglycerin 0.4 mg sublingual Q5M PRN ticagrelor (Brilinta) 90 mg PO BID 90 days HPI HPI Comments History of Present Illness Details Siddharth returns for follow-up. In 2021, he had chest pain and ruled in for NSTEMI. Underwent cardiac catheterization and right coronary artery stenting. Multiple cardiovascular risk factors including diabetes, hypertension dyslipidemia. He states that he is getting constant low-grade chest pain but not too bothersome. Also discussed with his daughter who is apparently physician. She again states same thing. Even she feels that it is somewhat atypical. With exertion, he is feeling fine and not getting any worsening at all. Hence not clear what this discomfort is all about. He has apparently had this for a while, many months. [facility]END[facility] SALE TO [facility] Medical History (Updated 01/25/23 @ 15:42 by Javan Noel MD) Atherosclerotic cardiovascular disease Gastroesophageal reflux disease Other and unspecified hyperlipidemia Essential hypertension Type 2 diabetes mellitus with unspecified complications Precordial chest pain Surgical History H/O toe surgery Family History Father No problems noted. Mother No problems noted. Social History Household Members: Spouse Housing: Apartment Do you presently have visiting nurse or other home services: No Alcohol intake: current Alcohol intake frequency: 0-2 drinks per day Patient Tobacco Use Status: Never used Tobacco service: No Review of Systems Const Denies weakness ENT Denies dizziness Card Reports chest pain, Denies chest pain with activity, Denies syncope, Denies rapid heart rate, Denies pedal edema, Denies edema, Denies leg edema, Denies lightheadedness, Denies palpitations, Denies dyspnea, Denies dyspnea on exertion and Denies orthopnea Resp Denies cough, Denies dyspnea and Denies dyspnea on exertion GI Denies hematochezia and Denies change in stool character Musc Denies abnormal gait, Denies muscle cramps, Denies muscle weakness, Denies numbness, Denies radiating pain into limb and Denies tingling Neuro Denies abnormal gait, Denies dizziness, Denies syncope, Denies numbness, Denies tingling and Denies weakness Endo Denies palpitations Physical Exam Vital Signs: Last Vital Signs Pulse 94 05/31/23 08:45 BP 142/70 H 05/31/23 08:45 BMI result Body Mass Index 31.1 Const General: comfortable and no acute distress Orientation/consciousness: patient oriented x3 HEENT Other: Unremarkable Head: Yes normal to inspection Neck Neck: Yes normal visual inspection Chest Chest palpation & inspection: normal inspection of the chest Resp Auscultation: clear to auscultation bilaterally Cardio Palpation: normal PMI Heart sounds: S1 normal heart sound present, S2 normal heart sound present, no gallops, no murmurs and no rubs GI Palpation (GI): Soft to palpation Back/Spine/Pelvis Other: unremarkable Skin General skin exam: no rashes or lesions noted Neuro General: patient oriented x3 Extrem General: Yes normal to inspection Psych Mental Status: mental status grossly normal Office Procedures EKG Details: EKG with sinus rhythm at 94/Min; nonspecific ST-T changes; normal NM; borderline corrected QT at 467 milliseconds. [id number], Complete Assessment & Plan Assessment & Plan (1) Atherosclerotic cardiovascular disease: Code(s): I25.10 - Atherosclerotic heart disease of [place] coronary artery without angina pectoris (2) Type 2 diabetes mellitus with unspecified complications: Code(s): E11.8 - Type 2 diabetes mellitus with unspecified complications (3) Essential hypertension: Code(s): I10 - Essential (primary) hypertension (4) Other and unspecified hyperlipidemia: Code(s): E78.5 - Hyperlipidemia, unspecified Plan Cardiac catheterization data reviewed from 04/2022. Severe/95% distal RCA stenosis with occluded PDA. Status post PCI to the RCA. No significant disease elsewhere. Echocardiogram then with LVEF of 53%. Basal inferior/inferoseptal akinesis. Mild decreased RV systolic function. With regard to his constant low-grade chest pains, not clear what it is. Very atypical for angina and discussed with daughter about the same who is a physician -she agrees. Considering his known CAD, history of PCI as well as numerous factors, we still plan to get a stress perfusion imaging study for further assessment. Patient and daughter willing. For medications, continue long-term aspirin. For Brilinta, mainstay till the stress is completed. If that is unremarkable, then can stop. If needs another catheterization, then may continue. With regard to diabetes, less than ideal control with hemoglobin A1c of 8.3%. On glipizide, metformin, Jardiance. With regard to blood pressure, borderline. Possibly add nitrates if necessary. Lipids well controlled. On high-dose statins. We plan follow-up after testing. Orders: Orders CA echo transthoracic complete Today I25.10 - Atherosclerotic heart disease of [place] coronary artery without angina pectoris CA stress test Today I25.10 - Atherosclerotic heart disease of [place] coronary artery without angina pectoris, R07.2 - Precordial pain NM cardiolite stress test Today I25.10 - Atherosclerotic heart disease of [place] coronary artery without angina pectoris, R07.2 - Precordial pain Coding Level of Care Code Est Pt Level 4 (26706) Diagnoses Atherosclerotic cardiovascular disease I25.10 Type 2 diabetes mellitus with unspecified complications E11.8 Essential hypertension I10 Other and unspecified hyperlipidemia E78.5 CPT Codes EKG - CPT: [id number], Complete ([id number])
[2023-05-31 08:45] VITALS: BP 142/70; PULSE 94; BMI 31.1
== END 2023-05-31 09:07 | disposition home or self-care (01) ==
PROVIDERS: PCP Internal Medicine; Visit Provider Internal Medicine
DX: I25.10 Atherosclerotic heart disease of native coronary artery without angina pectoris (principal); E11.8 Type 2 diabetes mellitus with unspecified complications; I10 Essential (primary) hypertension; E78.5 Hyperlipidemia, unspecified
CPT/HCPCS: 93010; 99214

== ENCOUNTER → 2023-05-31 08:40 | Outpatient (BNVA) | payer OTHER, SELFPAY | PROVIDERS: PCP Internal Medicine; Visit Provider Internal Medicine | DX: I25.10 Atherosclerotic heart disease of native coronary artery without angina pectoris (principal); E11.8 Type 2 diabetes mellitus with unspecified complications; E78.5 Hyperlipidemia, unspecified; I10 Essential (primary) hypertension | CPT/HCPCS: 93005; 99212 ==

== ENCOUNTER → 2023-07-12 08:05 | Outpatient (REF) | payer OTHER, MEDICAID, SELFPAY ==
--- NOTE | ~2023-07-12 | NM_ITS ---
EXERCISE MYOCARDIAL PERFUSION STUDY INDICATION: Chest pain, coronary disease, assess for ischemia TECHNIQUE: The patient was brought in for an exercise perfusion study on 07/12/2023. Patient performed exercise as per Kraig protocol and was injected 40 mCi of sestamibi once target heart rate was achieved. Images were obtained using the SPECT gamma camera interlaced with the gating device. Images were obtained in supine position. Resting perfusion study was performed on 07/13/2023. Patient was administered 40 mCi of sestamibi intravenously at rest. Images were then obtained in supine position. Images were processed with the software and compared side to side in short axis, horizontal long axis and vertical long axis views. Total DLP 83mGy-cm. FINDINGS: Raw images were reviewed. The stress perfusion study showed diminished tracer uptake along the inferior wall. There is improvement with CT attenuation correction suggestive of components of diaphragmatic attenuation artifact. The gated study shows normal LV systolic function with calculated LVEF of 52%. LV cavity is normal in size. The gated study shows normal wall thickening and contraction of segments. Resting study shows diminished tracer uptake along the inferior wall. There is improvement with CT attenuation correction. Gating at rest reveals normal wall motion with ejection fraction at 54%. The findings are consistent with fixed inferior perfusion defect. No reversible defects. NM/NM cardiolite stress test IMPRESSION: 1. Myocardial perfusion imaging study shows fixed inferior perfusion defect, that could indicate prior nontransmural infarct with components of diaphragmatic attenuation artifact. 2. Gated LVEF is 52% during stress and 53% during rest. 3. Transient ischemic dilatation not present. EKG component of the test reported separately.
--- NOTE | 2023-07-12 08:09 | CA_ITS ---
Acquisition Time: 2023-07-12 09:00:20 Total Exercise Time: 00:04:24 Test Indications: CP Medications: METOPROLOL LEVOTHYROXINE GLIPIZIDE LOSARTAN METFORMIN ASA ATORVASTATIN Protocol: DB Max HR: 146 BPM 93% of Pred: 156 BPM Max BP: 194/056 mmHG Max Work Load: 6.0 METS Exericse stress test exercise exercise 4 min 24 sec of Db protocol achieving 93% stopped due to patient request of moderate SOB, 1-2/10 chronic chest pain at rest none in recovery, with isolated PVCs, and venticular cuplets, with normotensive response to exercise, with downsloping in leads 2, 3, aVF and V6. Breathing returned to normal with rest. Nuclear images pending Referred By: Javan Noel Overread By: Ally Allen
--- NOTE | 2023-07-12 08:09 | CA_ITS ---
Transthoracic Echocardiogram Patient (Last, First, Middle): Siddharth Dang, Gender: Male Date of : 1960 Age: 63 Procedure Date: 07/12/2023 Procedure Type: Transthoracic Echocardiogram Location: OP Height: 187. cm Weight: 106.6 kg BSA: 2.32 m2 Heart Rate: 84 bpm BP: 160 / 85 mmHg Glove Turner And Former: TOBIN Johnson MD: Javan Noel MD Stonehand: Gilles Jackson MD Symptoms: I25.10 - Atherosclerotic heart disease of [place] coronary artery without... Study Quality: Fair/w Contrast ECG Rhythm: Sinus Conclusions: - 1. Technically limited study due to body habitus 2. Normal LV ejection fraction 55-60% with pseudonormal filling pattern with regional wall motion abnormality in the RCA territory 3. Cardiac valvular Dopplers within normal limits 4. No gross pericardial effusion Findings Procedure Information Contrast agent, definity, is being given per protocol without apparent complications. Left Ventricle Normal left ventricular size, thickness, and systolic function. The visually estimated ejection fraction is between 55-60%. Spectral Doppler is indicative of a pseudonormal filling pattern. E/E prime ratio is between 8 and 15 consistent with indeterminate filling pressures. Wall Motion Rest Echo Findings The basal inferior, mid inferior, and basal inferoseptal segments are hypokinetic. All other scored wall segments showed normal motion. Right Ventricle The right ventricle was not well visualized. Atria The left atrium is likely dilated. There is lipomatous hypertrophy of the interatrial septum. There is no evidence of interatrial shunt. The right atrium was not well visualized. Aortic Valve There is mild calcification of the aortic valve. There is no aortic valve stenosis. There is no aortic valve regurgitation. Mitral Valve There is mild anterior and posterior mitral leaflet thickening. There is mild mitral annular calcification. There is trace mitral valve regurgitation. There is no mitral valve stenosis. Pulmonic Valve The pulmonic valve was not well visualized. Tricuspid Valve Likely normal tricuspid valve structure and function. Tricuspid regurgitation envelope is inadequate for calculation of right ventricular systolic pressure. Normal right atrial pressure. Great Vessels The pulmonary artery was not well visualized. There is no dilatation of the ascending aorta measuring 3.30 cm. Small plaque is seen in the sino tubular ridge. Venous The inferior vena cava is normal in size and collapses greater than 50% with inspiration. Pericardium/Pleural There is no evidence of pericardial effusion. Measurements 2D Linear Measurements IVSd: 1.10 0.6-0.9/0.6-1.0 cm LVIDd: 4.62 3.9-5.3/4.2-5.9 cm LVIDd Index: 1.99 2.4-3.2/2.2-3.1 cm/m2 LVIDs: 3.32 2.0-3.6 cm LVPWd: 1.07 0.7-1.1 cm LA Diam: 3.20 2.7-3.8/3.0-4.0 cm LAIDs Index: 1.38 1.5-2.3 cm/m2 LV Mass: 223.01 67-162/88-224 g LV Mass Index: 96.13 43-95/49-115 g/m2 LVOT Diam: 2.50 3.0+(-)1.3 cm 2D Systolic Function EF 4C: 64.10 >55% EF 2C: 50.80 >55% EF BiP: 57.50 >55% Mitral Valve MV Pk E: 1.02 MV PK A: 0.90 MV Decel Time: 182.00 E/A: 1.10 E'Lateral: 7.40 E'Medial: 5.87 E/E' Med: 17.40 E/E' Lat: 13.80 PHT: 53.00 MVA PHT: 4.15 Decel [place]: 5.62 Aortic Valve AoV Pk Francisco Javier: 1.34 AoV Mn Francisco Javier: 0.96 AoV VTI: 0.28 AoV Pk Grad: 7.00 Aov Mn Grad: 4.00 YASMIN Cont.VTI: 3.49 LVOT LVOT Pk Francisco Javier: 0.91 LVOT Mn Francisco Javier: 0.70 LVOT VTI: 0.20 LVOT Pk Grad: 3.00 LVOT Mn Grad: 2.00 LVOT Diam: 2.50 LVOT Area: 4.91 Diastolic Function MV Pk E: 1.02 MV Pk A: 0.90 E/A: 1.10 E'Medial: 5.87 E/E' Med: 17.40 E' Laterial: 7.40 E/E' Lat: 13.80 Right Ventricle TAPSE (mm): 17.00 TVS' Francisco Javier: 12.50 Tricuspid Valve RA Press: 3.00 Great Vessels Aorta Sinus of Valsalva: 3.40 2.0-3.5 cm Ao Asc: 3.30 2.1-3.4 cm Pulmonary Valve PV Pk Francisco Javier: 1.09 Peak PV Grad: 5.00 Updated in Other Vendor System with Status of Final Gilles Jackson MD electronically signed on 07/12/2023 10:55:34 AM with status of Final
== END ==
LOC: HO.CARD 08:05
PROVIDERS: PCP Internal Medicine; Visit Provider Internal Medicine
DX: R07.2 Precordial pain (principal); I25.10 Atherosclerotic heart disease of native coronary artery without angina pectoris
CPT/HCPCS: 78452; 93017; 93306; A9500; J0280; J2785; Q9957

== ENCOUNTER → 2023-07-12 08:09 | Outpatient (BNV) | payer OTHER, SELFPAY | PROVIDERS: PCP Internal Medicine; Visit Provider Internal Medicine Cardiovascular Disease | DX: R07.2 Precordial pain (principal) | CPT/HCPCS: 78452; 93016; 93018; 93306 ==

== ENCOUNTER 2023-07-14 07:53 | Outpatient (REF) | payer OTHER, SELFPAY ==
[2023-07-14 08:33] LABS: Estimated Average Glucose 189 mg/dL; Hemoglobin A1c % 8.2 % (<6.0)
[2023-07-14 08:59] LABS: Alanine Aminotransferase 26 U/L (0-40); Albumin Level 4.3 g/dL (3.5-5.0); Alkaline Phosphatase 73 U/L (39-117); Anion Gap 12 (12-20); Aspartate Amino Transferase 24 U/L (5-37); Bilirubin Total 0.6 mg/dL (0.0-1.0); Blood Urea Nitrogen 10 mg/dL (9-16); Calcium 9.3 mg/dL (8.4-10.2); Carbon Dioxide 25 mmol/L (22-29); Chloride 104 mmol/L (96-108); Estimated Glomerular Filt Rate > 60; Glucose Random 148 mg/dL (60-115); Potassium 4.2 mmol/L (3.3-5.1); Sodium 137 mmol/L (135-145); Total Protein 7.7 g/dL (6.5-8.0)
[2023-07-14 09:17] LABS: Thyroid Stimulating Hormone 2.24 uIU/mL (0.32-4.0)
== END 2023-07-14 07:54 | disposition home or self-care (01) ==
LOC: HO.LAB 07:53
PROVIDERS: PCP Internal Medicine; Visit Provider Internal Medicine
DX: E03.9 Hypothyroidism, unspecified (principal); E11.65 Type 2 diabetes mellitus with hyperglycemia; E78.00 Pure hypercholesterolemia, unspecified; Z95.818 Presence of other cardiac implants and grafts
CPT/HCPCS: 36415; 80053; 83036; 84443

== ENCOUNTER 2023-07-19 08:36 | Outpatient (AMB) | payer OTHER, SELFPAY ==
[2023-07-19 08:41] VITALS: BP 124/62; PULSE 92; BMI 30.9
--- NOTE | 2023-07-19 08:41 | A.OFFVIS_ITS ---
Intake Vital Signs 07/19/23 08:41 Height 6 ft 1 in Weight 234 lb 9.149 oz BMI 30.9 BP 124/62 Blood Pressure Location Lt brachial Position Sitting Pulse 92 Pulse Source Pulse Oximeter Intake Visit Reasons: follow up mibi/echo Piper Installer Required: No Allergies Penicillins [PENICILLINS] Allergy (Intermediate, Verified 07/19/23 08:43) RASH lisinopril Allergy (Unknown, Verified 07/19/23 08:43) Itching Medication List - Last Reconciled 07/19/23 by ELVIS Rojas alum-mag hydroxide-simeth 200-200-20 mg/5 mL (Maalox Advanced) 5 mL PO 5XD PRN aspirin 81 mg PO DAILY atorvastatin 80 mg PO DAILY empagliflozin (Jardiance) 25 mg PO DAILY glipizide ER 10 mg PO DAILY levothyroxine 75 mcg PO DAILY losartan 100 mg PO DAILY metformin 1,000 mg PO BID metoprolol succinate ER 100 mg PO DAILY nitroglycerin 0.4 mg sublingual Q5M PRN ticagrelor (Brilinta) 90 mg PO BID 90 days HPI follow up mibi/echo HPI Details Siddharth is a 63-year-old male with past medical history of hypertension, hyperlipidemia, diabetes, NSTEMI 04/2022 with cardiac catheterization showing occluded right PDA and distal RCA 95% stenosis, stent placed to the distal RCA. On last visit he reported chronic chest discomfort and underwent echocardiogram and nuclear stress test, now presenting for follow- up. Today he reports that he continues to have his mild chronic discomfort in the left chest region, that is not worse with activity or rest. He says this symptom has been the same without any recent changes. He does describe an episode of pain across his entire chest that woke him from sleep approximately 2 weeks ago. He says he sat up drank some water then took a nitroglycerin with relief of the discomfort. His daughter is on the phone and states that prior to his UT was getting episodes of discomfort like this. He has not had any recurrent episodes since the 1 2 weeks ago. He denies having this type of symptom during the daytime. This chest discomfort is very different from the chronic aching discomfort that he also describes. No shortness of breath, palpitations, lightheadedness, presyncope, syncope, PND, orthopnea or edema. Taking meds as directed. No bleeding issues reported. Works full-time at a convenience store. [facility] Medical History Atherosclerotic cardiovascular disease Gastroesophageal reflux disease Other and unspecified hyperlipidemia Essential hypertension Type 2 diabetes mellitus with unspecified complications Precordial chest pain Surgical History H/O toe surgery Family History Father No problems noted. Mother No problems noted. Social History Household Members: Spouse Housing: Apartment Do you presently have visiting nurse or other home services: No Alcohol intake: current Alcohol intake frequency: 0-2 drinks per day Patient Tobacco Use Status: Never used Tobacco service: No Review of Systems Const All systems reviewed & are unremarkable except as noted in HPI and below ENT Denies dizziness Card Reports chest pain, Reports chest pain at rest, Denies chest pain with activity, Denies rapid heart rate, Denies pedal edema, Denies edema, Denies leg edema, Denies lightheadedness, Denies palpitations, Denies dyspnea, Denies dyspnea on exertion and Denies orthopnea Resp Denies cough, Denies dyspnea and Denies dyspnea on exertion GI Denies hematochezia and Denies change in stool character Musc Denies abnormal gait, Denies limited range of motion, Denies muscle cramps, Denies muscle weakness, Denies numbness, Denies radiating pain into limb, Denies stiffness and Denies tingling Neuro Denies abnormal gait, Denies dizziness, Denies numbness and Denies tingling Endo Denies palpitations Physical Exam Vital Signs: Last Vital Signs Pulse 92 07/19/23 08:41 BP 124/62 07/19/23 08:41 BMI result Body Mass Index 30.9 Const General: cooperative, healthy appearing, comfortable and no acute distress Orientation/consciousness: patient oriented x3 Neck Neck: Yes normal visual inspection and Yes no JVD Resp Effort & Inspection: normal respiratory effort Auscultation: clear to auscultation bilaterally, no crackles, no rales, no rhonchi and no wheezes Cardio Jugular venous distension: no JVD Rate: regular rate Rhythm: regular rhythm Heart sounds: S1 normal heart sound present, S2 normal heart sound present, no murmurs and no rubs Neuro General: patient oriented x3 Extrem General: Yes normal to inspection, No no pedal edema and No calf tenderness Psych Appearance: grossly normal Mental Status: mental status grossly normal Speech and movement: Normal speech and movement present Assessment & Plan Assessment & Plan (1) Chest discomfort: Code(s): R07.89 - Other chest pain Plan: Reports of chronic mild atypical sounding chest discomfort which is not new. He has a known history of coronary artery disease with NSTEMI 2021, distal RCA stenosis with JUAN RAMON placed. An echocardiogram was done 07/12/2023 showing EF 55- 60%, wall motion abnormality in the RCA territory, seen on prior echo as well. Nuclear stress test done 07/12/2023 shows exercise 4-1/2 minutes with moderate shortness of breath, no exercise induced chest discomfort, EKG changes noted in recovery, nuclear imaging showing a fixed inferior defect. Test results reviewed with him and daughter in detail. Today he reports having 1 episode of precordial chest pain that woke him from sleep approximately 2 weeks ago. Sat up in bed drink water and took a nitroglycerin with relief of his symptom. His daughter expresses concern that he had this symptom prior to having his prior M I. no chest discomfort brought on by exertion. He has not had this type of chest discomfort in the daytime hours. Will continue on current med management including aspirin, Brilinta, high-dose atorvastatin and metoprolol. Will recent prescription for nitroglycerin. Will discuss case with Dr. Noel which was done after patient left office. Diagnostic cardiac catheterization can be performed. Call placed to patient and offered this for further evaluation. He tells me he will discuss it with his daughter and let us know. Emergency care if needed for concerning symptoms. At present will put office visit at 3 months, sooner if needed. If he undergoes cardiac catheterization it will be 2 weeks post cath. (2) Atherosclerotic cardiovascular disease: Code(s): I25.10 - Atherosclerotic heart disease of [place] coronary artery without angina pectoris Plan: As above (3) NSTEMI (non-ST elevated myocardial infarction): Code(s): I21.4 - Non-ST elevation (NSTEMI) myocardial infarction Plan: April 2022 (4) S/P cardiac cath: Comment: 05/04/2022, lad mild proximal disease, left circumflex mild irregularities, RCA distal 95% stenosis, stent placed, right PDA 100% occlusion. Code(s): Z98.890 - Other specified postprocedural states Plan: As above (5) Essential hypertension: Code(s): I10 - Essential (primary) hypertension Plan: Well controlled at present. (6) Other and unspecified hyperlipidemia: Code(s): E78.5 - Hyperlipidemia, unspecified Plan: [place] LDL goal less than 70 in patient with known CAD. Labs done 04/07/2023 shows LDL 50. Continue high-dose atorvastatin Plan Time spent on chart review, documentation, interview and assessment Medications: Refilled nitroglycerin do not exceed 3 doses per episode 0.4 mg sublingual Q5M PRN 25 tabs 2RF chest pain R07.2 - Precordial pain Coding Level of Care Code Est Pt Level 4 (77902) Diagnoses Chest discomfort R07.89 Atherosclerotic cardiovascular disease I25.10 NSTEMI (non-ST elevated myocardial infarction) I21.4 S/P cardiac cath Z98.890 Essential hypertension I10 Other and unspecified hyperlipidemia E78.5 Time Spent (min) 28
== END 2023-07-19 09:09 | disposition home or self-care (01) ==
PROVIDERS: PCP Internal Medicine; Referring Provider Internal Medicine; Visit Provider Nurse Practitioner Family
DX: R07.89 Other chest pain (principal); I25.10 Atherosclerotic heart disease of native coronary artery without angina pectoris; I21.4 Non-ST elevation (NSTEMI) myocardial infarction; Z98.890 Other specified postprocedural states; I10 Essential (primary) hypertension; E78.5 Hyperlipidemia, unspecified
CPT/HCPCS: 99214

== ENCOUNTER → 2023-07-19 08:36 | Outpatient (BNVA) | payer OTHER, SELFPAY | PROVIDERS: PCP Internal Medicine; Visit Provider Nurse Practitioner Family | DX: R07.89 Other chest pain (principal); I25.10 Atherosclerotic heart disease of native coronary artery without angina pectoris; I21.4 Non-ST elevation (NSTEMI) myocardial infarction; I10 Essential (primary) hypertension; E78.5 Hyperlipidemia, unspecified; Z98.890 Other specified postprocedural states | CPT/HCPCS: 99212 ==

== ENCOUNTER 2023-10-05 09:24 | Outpatient (AMB) | payer OTHER, SELFPAY ==
--- NOTE | 2023-10-05 09:26 | MHC.OFFVIS ---
Vital Signs 10/05/23 09:27 Height 6 ft 1 in Weight 229 lb 4.492 oz BMI 30.2 BP 120/62 Blood Pressure Location Lt brachial Position Sitting Pulse 99 Pulse Source Pulse Oximeter Pulse Oximetry (%) 98 Oxygen Delivery Method Room Air Intake Visit Reasons: 3 mth f/up DC Allergies Penicillins [PENICILLINS] Allergy (Intermediate, Verified 07/19/23 08:43) RASH lisinopril Allergy (Unknown, Verified 07/19/23 08:43) Itching Medication List - Last Reconciled 10/05/23 by Javan Noel MD alum-mag hydroxide-simeth 200-200-20 mg/5 mL (Maalox Advanced) 5 mL PO 5XD PRN aspirin 81 mg PO DAILY atorvastatin 80 mg PO DAILY empagliflozin (Jardiance) 25 mg PO DAILY glipizide ER 10 mg PO DAILY isosorbide mononitrate ER 30 mg PO DAILY levothyroxine 75 mcg PO DAILY losartan 100 mg PO DAILY metformin 1,000 mg PO BID metoprolol succinate ER 100 mg PO DAILY nitroglycerin 0.4 mg sublingual Q5M PRN ticagrelor (Brilinta) 90 mg PO BID 90 days HPI Comments Details: Siddharth returns for follow-up. In 2021, he had chest pain and ruled in for NSTEMI. Underwent cardiac catheterization and right coronary artery stenting. Multiple cardiovascular risk factors including diabetes, hypertension dyslipidemia. He has been complaining of essentially chest pain very frequently, almost daily. Last time, cardiac catheterization was offered but he did not want to go through with it. Today, I spoke to his daughter who is also a physician. Pain is very atypical, but he does have established CAD and risk factors. Hence we decided that we will probably proceed with catheterization to know definitively. [facility] Medical History Atherosclerotic cardiovascular disease Gastroesophageal reflux disease Other and unspecified hyperlipidemia Essential hypertension Type 2 diabetes mellitus with unspecified complications Precordial chest pain Surgical History H/O toe surgery Family History Father No problems noted. Mother No problems noted. Social History Household Members: Spouse Housing: Apartment Do you presently have visiting nurse or other home services: No Alcohol intake: current Alcohol intake frequency: 0-2 drinks per day Patient Tobacco Use Status: Never used Tobacco service: No Review of Systems Const Denies weakness ENT Denies dizziness Card Denies chest pain, Denies chest pain with activity, Denies syncope, Denies rapid heart rate, Denies pedal edema, Denies edema, Denies leg edema, Denies lightheadedness, Denies palpitations, Denies dyspnea, Denies dyspnea on exertion and Denies orthopnea Resp Denies cough, Denies dyspnea and Denies dyspnea on exertion GI Denies hematochezia and Denies change in stool character Musc Denies abnormal gait, Denies muscle cramps, Denies muscle weakness, Denies numbness, Denies radiating pain into limb and Denies tingling Neuro Denies abnormal gait, Denies dizziness, Denies syncope, Denies numbness, Denies tingling and Denies weakness Endo Denies palpitations Physical Exam Vital Signs: Last Vital Signs Pulse 99 10/05/23 09:27 BP 120/62 10/05/23 09:27 Pulse Ox 98 10/05/23 09:27 Oxygen Delivery Method Room Air 10/05/23 09:27 BMI result Body Mass Index 30.2 Const General: comfortable and no acute distress Orientation/consciousness: patient oriented x3 HEENT Other: Unremarkable Head: Yes normal to inspection Neck Neck: Yes normal visual inspection Chest Chest palpation & inspection: normal inspection of the chest Resp Auscultation: clear to auscultation bilaterally Cardio Palpation: normal PMI Heart sounds: S1 normal heart sound present, S2 normal heart sound present, no gallops, no murmurs and no rubs GI Palpation (GI): Soft to palpation Back/Spine/Pelvis Other: unremarkable Skin General skin exam: no rashes or lesions noted Neuro General: patient oriented x3 Extrem General: Yes normal to inspection Psych Mental Status: mental status grossly normal Assessment & Plan Assessment & Plan (1) Atherosclerotic cardiovascular disease: Code(s): I25.10 - Atherosclerotic heart disease of [place] coronary artery without angina pectoris Category: Medical (2) Type 2 diabetes mellitus with unspecified complications: Code(s): E11.8 - Type 2 diabetes mellitus with unspecified complications Category: Medical (3) Essential hypertension: Code(s): I10 - Essential (primary) hypertension Category: Medical (4) Other and unspecified hyperlipidemia: Code(s): E78.5 - Hyperlipidemia, unspecified Category: Medical Plan Cardiac catheterization data reviewed from 04/2022. Severe/95% distal RCA stenosis with occluded PDA. Status post PCI to the RCA. No significant disease elsewhere. In the recent echocardiogram, LVEF is 55-60% with RCA territory wall motion abnormality. Myocardial perfusion imaging study shows fixed inferior defect thought to be from prior nontransmural infarct. Overall, essentially daily chest pains and some times he also wakes up at nighttime. It has been going on for months and hence not clear if it is something noncardiac or truly coronary related. We discussed at length and I also called his daughter who is a physician. Eventually agreed that we will proceed with diagnostic catheterization. This will be arranged within the next few days. Discussed with Dr. Hodges. For meds, continue long-term aspirin. Brilinta can be kept till repeat catheterization-further plan after that. Otherwise, continue long-acting nitrates, beta-blockers, high-dose statins. Last LDL is 50 mg/dL. Blood pressure seems stable. With regard to diabetes, less than ideal. Hemoglobin A1c is 8.2%. He is on Jardiance, glipizide and metformin. Follow-up after catheterization. Orders: Orders Complete Blood Count no Diff Today I25.10 - Atherosclerotic heart disease of [place] coronary artery without angina pectoris Basic Metabolic Panel Today I25.10 - Atherosclerotic heart disease of [place] coronary artery without angina pectoris Prothrombin Time INR Today I25.10 - Atherosclerotic heart disease of [place] coronary artery without angina pectoris Cardiac Cath LT Diagnostic Today I25.10 - Atherosclerotic heart disease of [place] coronary artery without angina pectoris Coding Level of Care Code Est Pt Level 4 (63468) Diagnoses Atherosclerotic cardiovascular disease I25.10 Type 2 diabetes mellitus with unspecified complications E11.8 Essential hypertension I10 Other and unspecified hyperlipidemia E78.5
[2023-10-05 09:27] VITALS: BP 120/62; PULSE 99; O2SAT 98; BMI 30.2
== END 2023-10-05 09:51 | disposition home or self-care (01) ==
PROVIDERS: PCP Internal Medicine; Visit Provider Internal Medicine
DX: I25.10 Atherosclerotic heart disease of native coronary artery without angina pectoris (principal); E11.8 Type 2 diabetes mellitus with unspecified complications; I10 Essential (primary) hypertension; E78.5 Hyperlipidemia, unspecified
CPT/HCPCS: 99214

== ENCOUNTER 2023-10-05 09:24 | Outpatient (REF) | payer OTHER, SELFPAY ==
[2023-10-05 10:43] LABS: Hematocrit 37.4 % (42.0-52.0); Hemoglobin 11.4 g/dl (14.0-18.0); Mean Corpuscular HGB Conc 30.5 g/dl (31.0-36.0); Mean Corpuscular Hemoglobin 24.3 pg (27.0-33.0); Mean Corpuscular Volume 79.6 fL (80.0-98.0); Mean Platelet Volume 9.6 fL (9.4-12.4); Platelet Count 260 X10*3/uL (160-400); Red Cell Distribution Width 14.8 % (11.0-16.0); White Blood Count 8.9 X10*3/uL (4.8-10.8)
[2023-10-05 10:48] LABS: INTERNATIONAL NORM RATIO 1.1 (0.9-1.1); Prothrombin Time 13.4 SEC (11.1-13.3)
[2023-10-05 11:28] LABS: Anion Gap 13 (12-20); Blood Urea Nitrogen 14 mg/dL (9-16); Calcium 9.3 mg/dL (8.4-10.2); Carbon Dioxide 24 mmol/L (22-29); Chloride 103 mmol/L (96-108); Estimated Glomerular Filt Rate > 60; Glucose Random 315 mg/dL (60-115); Potassium 4.2 mmol/L (3.3-5.1); Sodium 136 mmol/L (135-145)
== END 2023-10-05 09:25 | disposition home or self-care (01) ==
LOC: HO.LAB 09:24
PROVIDERS: PCP Internal Medicine; Visit Provider Internal Medicine
DX: I25.10 Atherosclerotic heart disease of native coronary artery without angina pectoris (principal); E11.8 Type 2 diabetes mellitus with unspecified complications; I10 Essential (primary) hypertension; E78.5 Hyperlipidemia, unspecified
CPT/HCPCS: 36415; 80048; 85027; 85610; 99212

== ENCOUNTER → 2023-10-11 23:59 | Outpatient (BNV) | payer OTHER, SELFPAY | PROVIDERS: PCP Internal Medicine; Visit Provider Internal Medicine Cardiovascular Disease | DX: I25.118 Atherosclerotic heart disease of native coronary artery with other forms of angina pectoris (principal) | CPT/HCPCS: 92928; 92978; 93458; 99152 ==

== ENCOUNTER 2023-10-20 14:04 | Outpatient (AMB) | payer OTHER, SELFPAY ==
[2023-10-20 14:13] VITALS: BP 150/70; PULSE 80; O2SAT 99; BMI 30.4
--- NOTE | 2023-10-20 14:13 | A.OFFVIS_ITS ---
Vital Signs 10/20/23 14:13 Height 6 ft 1 in Weight 230 lb 9.656 oz BMI 30.4 BP 150/70 H Blood Pressure Location Lt brachial Position Sitting Pulse 80 Pulse Source Pulse Oximeter Pulse Oximetry (%) 99 Intake Visit Reasons: Follow up post cardiac cath Furniture Builder Required: No Accompanied by: Self / Same As Patient Allergies Penicillins [PENICILLINS] Allergy (Intermediate, Verified 07/19/23 08:43) RASH lisinopril Allergy (Unknown, Verified 07/19/23 08:43) Itching Medication List - Last Reconciled 10/20/23 by Javan Noel MD aspirin 81 mg PO DAILY atorvastatin 80 mg PO DAILY empagliflozin (Jardiance) 25 mg PO DAILY glipizide ER 10 mg PO DAILY levothyroxine 75 mcg PO DAILY losartan 100 mg PO DAILY metformin 1,000 mg PO BID metoprolol succinate ER 100 mg PO DAILY nitroglycerin 0.4 mg sublingual Q5M PRN ticagrelor (Brilinta) 90 mg PO BID 90 days HPI Comments Details: Siddharth returns for follow-up. In 2021, he had chest pain and ruled in for NSTEMI. Underwent cardiac catheterization and right coronary artery stenting. Multiple cardiovascular risk factors including diabetes, hypertension dyslipidemia. He has been having almost regular chest pains that led to another cardiac catheterization. He was found to have 90% OM stenosis for which she underwent PCI. Still had residual RCA disease, medically managed. He actually states that the chest pain itself is much better. Otherwise, feels okay. PENDING SALE TO [facility] Medical History (Updated 07/19/23 @ 09:11 by ELVIS Rojas) Atherosclerotic cardiovascular disease Gastroesophageal reflux disease Other and unspecified hyperlipidemia Essential hypertension Type 2 diabetes mellitus with unspecified complications Precordial chest pain Surgical History (Updated 10/20/23 @ 14:15 by Justina Ruth CMA) Hx of cardiac cath H/O toe surgery Family History Father No problems noted. Mother No problems noted. Social History Household Members: Spouse Housing: Apartment Do you presently have visiting nurse or other home services: No Alcohol intake: current Alcohol intake frequency: 0-2 drinks per day Patient Tobacco Use Status: Never used Tobacco service: No Review of Systems Const Denies chills, Denies fatigue, Denies fever(s), Denies frequent falls, Denies weakness, Denies weight gain and Denies weight loss ENT Denies dizziness Card Denies chest pain, Denies leg edema, Denies lightheadedness, Denies palpitations, Denies dyspnea and Denies dyspnea on exertion Resp Denies cough, Denies dyspnea and Denies dyspnea on exertion GI Denies hematochezia Musc Denies abnormal gait, Denies muscle weakness, Denies numbness, Denies radiating pain into limb and Denies tingling Neuro Denies abnormal gait, Denies dizziness, Denies frequent falls, Denies numbness, Denies tingling and Denies weakness Endo Denies fatigue and Denies palpitations Physical Exam Vital Signs: Last Vital Signs Pulse 80 10/20/23 14:13 BP 150/70 H 10/20/23 14:13 Pulse Ox 99 10/20/23 14:13 BMI result Body Mass Index 30.4 Const General: comfortable and no acute distress Orientation/consciousness: patient oriented x3 HEENT Other: Unremarkable Head: Yes normal to inspection Neck Neck: Yes normal visual inspection Chest Chest palpation & inspection: normal inspection of the chest Resp Auscultation: clear to auscultation bilaterally Cardio Palpation: normal PMI Heart sounds: S1 normal heart sound present, S2 normal heart sound present, no gallops, no murmurs and no rubs GI Palpation (GI): Soft to palpation Back/Spine/Pelvis Other: unremarkable Skin General skin exam: no rashes or lesions noted Neuro General: patient oriented x3 Extrem General: Yes normal to inspection Psych Mental Status: mental status grossly normal Assessment & Plan Assessment & Plan (1) Atherosclerotic cardiovascular disease: Code(s): I25.10 - Atherosclerotic heart disease of [place] coronary artery without angina pectoris Category: Medical (2) Type 2 diabetes mellitus with unspecified complications: Code(s): E11.8 - Type 2 diabetes mellitus with unspecified complications Category: Medical (3) Essential hypertension: Code(s): I10 - Essential (primary) hypertension Category: Medical (4) Other and unspecified hyperlipidemia: Code(s): E78.5 - Hyperlipidemia, unspecified Category: Medical Plan Cardiac catheterization data reviewed from 09/2023 - marginal-proximal 90% stenosis, status post PCI. Prior RCA stent with mild ISR. Mid RCA 70% stenosis. Mild LAD disease. Overall, continue long-term aspirin. Brilinta for the next year. Otherwise, remains on beta-blockers, high-dose statins. LDL is well controlled. Blood pressure is slightly high today, but was normal on the last 2 visits. No changes made today. With regard to diabetes, less than ideal. Hemoglobin A1c is 8.2%. He is on Jardiance, glipizide and metformin. Cardiac rehabilitation. Patient is asking for a new PCP within [place] and will try to arrange. Coding Level of Care Code Est Pt Level 4 (91704) Diagnoses Atherosclerotic cardiovascular disease I25.10 Type 2 diabetes mellitus with unspecified complications E11.8 Essential hypertension I10 Other and unspecified hyperlipidemia E78.5
== END 2023-10-20 14:35 | disposition home or self-care (01) ==
PROVIDERS: PCP Internal Medicine; Visit Provider Internal Medicine
DX: I25.10 Atherosclerotic heart disease of native coronary artery without angina pectoris (principal); E11.8 Type 2 diabetes mellitus with unspecified complications; I10 Essential (primary) hypertension; E78.5 Hyperlipidemia, unspecified
CPT/HCPCS: 99214

== ENCOUNTER → 2023-10-20 14:04 | Outpatient (BNVA) | payer OTHER, SELFPAY | PROVIDERS: PCP Internal Medicine; Visit Provider Internal Medicine | DX: I25.10 Atherosclerotic heart disease of native coronary artery without angina pectoris (principal); I10 Essential (primary) hypertension; E11.8 Type 2 diabetes mellitus with unspecified complications; E78.5 Hyperlipidemia, unspecified | CPT/HCPCS: 99212 ==

== ENCOUNTER 2023-12-01 11:14 | Outpatient (RCR) | payer OTHER, SELFPAY | END 2023-12-14 07:00 | disposition home or self-care (01) | LOC: HO.CR 11:14 | PROVIDERS: PCP Internal Medicine; Visit Provider Internal Medicine | DX: I21.4 Non-ST elevation (NSTEMI) myocardial infarction (principal); Z95.5 Presence of coronary angioplasty implant and graft | CPT/HCPCS: 93798 ==

== ENCOUNTER 2024-01-24 07:19 | Outpatient (REF) | payer MEDICAID, SELFPAY ==
[2024-01-24 07:32] LABS: MANUAL DIFF FLAG NO
[2024-01-24 08:16] LABS: Basophils Absolute Auto 0.1 X10*3/uL (0.0-0.2); Basophils Percent Auto 0.9 % (0-2); Eosinophils Absolute Auto 0.5 X10*3/uL (0.0-0.4); Hematocrit 38.1 % (42.0-52.0); Hemoglobin 11.5 g/dl (14.0-18.0); Imm Gran Abs Auto 0.04 X10*3/uL (0.00-0.03); Imm Gran Pct Auto 0.4 % (0.0-0.4); Lymphocytes Absolute Auto 1.4 X10*3/uL (1.2-4.9); Lymphocytes Percent Auto 15.1 % (20-40); Mean Corpuscular HGB Conc 30.2 g/dl (31.0-36.0); Mean Corpuscular Hemoglobin 24.3 pg (27.0-33.0); Mean Corpuscular Volume 80.4 fL (80.0-98.0); Mean Platelet Volume 9.8 fL (9.4-12.4); Monocytes Absolute Auto 0.8 X10*3/uL (0.1-1.2); Monocytes Percent Auto 8.2 % (2-11); Neutrophils Absolute Auto 6.7 x10*3/uL (2.0-8.3); Neutrophils Percent Auto 70.4 % (45-73); Platelet Count 301 X10*3/uL (160-400); Red Blood Count 4.74 X10*6/uL (4.60-5.80); Red Cell Distribution Width 14.7 % (11.0-16.0); White Blood Count 9.5 X10*3/uL (4.8-10.8)
[2024-01-24 08:23] LABS: Estimated Average Glucose 180 mg/dL; Hemoglobin A1c % 7.9 % (<6.0)
[2024-01-24 09:01] LABS: Alanine Aminotransferase 20 U/L (0-40); Albumin Level 4.3 g/dL (3.5-5.0); Alkaline Phosphatase 71 U/L (39-117); Anion Gap 14 (12-20); Aspartate Amino Transferase 20 U/L (5-37); Bilirubin Total 0.4 mg/dL (0.0-1.0); Blood Urea Nitrogen 12 mg/dL (9-16); Calcium 8.9 mg/dL (8.4-10.2); Carbon Dioxide 23 mmol/L (22-29); Chloride 105 mmol/L (96-108); Cholesterol 129 mg/dL (<200); Estimated Glomerular Filt Rate > 60; Glucose Random 147 mg/dL (60-115); HDL Cholesterol 36 mg/dL (>40); LDL Cholesterol Calculated 61 mg/dL (<100); Potassium 4.5 mmol/L (3.3-5.1); Sodium 137 mmol/L (135-145); Total Protein 7.5 g/dL (6.5-8.0); Triglycerides 162 mg/dL (<150)
[2024-01-24 09:02] LABS: Creatinine Urine 107.95 mg/dL; Microalbum/Creatinine Ratio Ur 15.7 ug/mg cr (<30)
[2024-01-24 09:26] LABS: Vitamin B12 732 pg/mL (200-900)
== END 2024-01-24 07:20 | disposition home or self-care (01) ==
LOC: HO.LAB 07:19
PROVIDERS: PCP Internal Medicine; Visit Provider Internal Medicine
DX: E03.9 Hypothyroidism, unspecified (principal); E11.9 Type 2 diabetes mellitus without complications; I25.10 Atherosclerotic heart disease of native coronary artery without angina pectoris; Z95.5 Presence of coronary angioplasty implant and graft
CPT/HCPCS: 36415; 80053; 80061; 82043; 82570; 82607; 83036; 85025

== ENCOUNTER 2024-04-23 09:58 | Outpatient (AMB) | payer OTHER, MEDICAID, SELFPAY ==
[2024-04-23 10:08] VITALS: BP 150/62; PULSE 106; BMI 31.6
--- NOTE | 2024-04-23 10:08 | MHC.OFFVIS ---
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 Accompanied by: Self / Same As Patient Allergies Penicillins [PENICILLINS] Allergy (Intermediate, Verified 07/19/23 08:43) RASH lisinopril Allergy (Unknown, Verified 07/19/23 08:43) Itching Medication List - Last Reconciled 04/23/24 by Javan Noel MD aspirin 81 mg PO DAILY atorvastatin 80 mg PO DAILY empagliflozin (Jardiance) 25 mg PO DAILY glipizide ER 10 mg PO DAILY levothyroxine 75 mcg PO DAILY losartan 100 mg PO DAILY metformin 1,000 mg PO BID metoprolol succinate ER 100 mg PO DAILY nitroglycerin 0.4 mg sublingual Q5M PRN ticagrelor (Brilinta) 90 mg PO BID 90 days HPI Comments Details: Siddharth returns for follow-up. In 2021, he had chest pain and ruled in for NSTEMI. Underwent cardiac catheterization and right coronary artery stenting. Then, he was still complaining of chest pains and that led to yet another catheterization in 09/2023. He was found to have 90% OM stenosis for which he underwent PCI. Still had residual RCA disease, medically managed. Multiple cardiovascular risk factors including diabetes, hypertension, dyslipidemia. Today, his daughter is also on the phone during the time of visit. And she is a physician. According to them, patient has been experience some shortness of breath, more so in the last few days when it has been cold. However, it has been somewhat of a chronic complaint as well. No angina otherwise. Some heart palpitations at times. [facility] Medical History (Updated 04/23/24 @ 10:22 by Javan Noel MD) Atherosclerotic cardiovascular disease Gastroesophageal reflux disease Other and unspecified hyperlipidemia Essential hypertension Type 2 diabetes mellitus with unspecified complications Precordial chest pain Surgical History Hx of cardiac cath H/O toe surgery Family History Father No problems noted. Mother No problems noted. Social History Household Members: Spouse Housing: Apartment Do you presently have visiting nurse or other home services: No Alcohol intake: current Alcohol intake frequency: 0-2 drinks per day Patient Tobacco Use Status: Never used Tobacco service: No Review of Systems Const Denies chills, Denies fatigue, Denies fever(s), Denies weight gain and Denies weight loss ENT Denies dizziness Card Denies chest pain, Denies leg edema, Denies lightheadedness, Denies palpitations, Reports dyspnea, Denies dyspnea on exertion, Denies orthopnea and Denies other Resp Denies cough, Reports dyspnea and Denies dyspnea on exertion GI Denies hematochezia and Denies change in stool character Musc Denies abnormal gait, Denies muscle weakness, Denies numbness, Denies radiating pain into limb and Denies tingling Neuro Denies abnormal gait, Denies dizziness, Denies numbness and Denies tingling Endo Denies fatigue and Denies palpitations Physical Exam Vital Signs: Last Vital Signs Pulse 106 H 04/23/24 10:08 BP 150/62 H 04/23/24 10:08 BMI result Body Mass Index 31.6 Const General: comfortable and no acute distress Orientation/consciousness: patient oriented x3 HEENT Other: Unremarkable Head: Yes normal to inspection Neck Neck: Yes normal visual inspection Chest Chest palpation & inspection: normal inspection of the chest Resp Auscultation: clear to auscultation bilaterally Cardio Palpation: normal PMI Heart sounds: S1 normal heart sound present, S2 normal heart sound present, no gallops, no murmurs and no rubs GI Palpation (GI): Soft to palpation Back/Spine/Pelvis Other: unremarkable Skin General skin exam: no rashes or lesions noted Neuro General: patient oriented x3 Extrem General: Yes normal to inspection Psych Mental Status: mental status grossly normal Office Procedures EKG Details: EKG with sinus tachycardia at 106/Min; no significant ST-T changes; [place] [id number], Complete Assessment & Plan Assessment & Plan (1) Atherosclerotic cardiovascular disease: Code(s): I25.10 - Atherosclerotic heart disease of [place] coronary artery without angina pectoris Category: Medical (2) Type 2 diabetes mellitus with unspecified complications: Code(s): E11.8 - Type 2 diabetes mellitus with unspecified complications Category: Medical (3) Essential hypertension: Code(s): I10 - Essential (primary) hypertension Category: Medical (4) Other and unspecified hyperlipidemia: Code(s): E78.5 - Hyperlipidemia, unspecified Category: Medical Plan Cardiac catheterization data reviewed from 09/2023 - marginal-proximal 90% stenosis, status post PCI. Prior RCA stent with mild ISR. Mid RCA 70% stenosis. Mild LAD disease. With regard to shortness of breath, uncertain etiology. Check echocardiogram. Daughter also thinks he might have sleep apnea because of snoring. Hence check sleep study. His heart rate is slightly fast but he has had this before. We will check Holter as well to ensure there is no significant/persistent tachycardia. For meds, continue long-term aspirin. Doubt Brilinta is causing this shortness of breath but something to consider. If necessary, can switch to Plavix. Blood pressure is slightly high and we can start amlodipine 5 mg daily. They can do home blood pressures as well. With regard to diabetes, hemoglobin A1c is 7.9%. On Jardiance, glipizide, metformin. Follow-up after testing is completed. Orders: Orders CA echo transthoracic complete Today R06.02 - Shortness of breath RT home sleep study Today G47.33 - Obstructive sleep apnea (adult) (pediatric) ECG 3 day holter monitor Today R00.2 - Palpitations Medications: New amlodipine 5 mg PO DAILY 90 tabs 1RF Coding Level of Care Code Est Pt Level 4 (46871) Diagnoses Atherosclerotic cardiovascular disease I25.10 Type 2 diabetes mellitus with unspecified complications E11.8 Essential hypertension I10 Other and unspecified hyperlipidemia E78.5 CPT Codes EKG - CPT: 44340-[id number], Complete ([id number])
== END 2024-04-23 10:34 | disposition home or self-care (01) ==
PROVIDERS: PCP Internal Medicine; Visit Provider Internal Medicine
DX: I25.10 Atherosclerotic heart disease of native coronary artery without angina pectoris (principal); E11.8 Type 2 diabetes mellitus with unspecified complications; I10 Essential (primary) hypertension; E78.5 Hyperlipidemia, unspecified
CPT/HCPCS: 93010; 99214

== ENCOUNTER → 2024-04-23 09:58 | Outpatient (BNVA) | payer MEDICAID, SELFPAY | PROVIDERS: PCP Internal Medicine; Visit Provider Internal Medicine | DX: I10 Essential (primary) hypertension (principal); I25.10 Atherosclerotic heart disease of native coronary artery without angina pectoris; E78.5 Hyperlipidemia, unspecified; E11.8 Type 2 diabetes mellitus with unspecified complications; R06.02 Shortness of breath; R00.2 Palpitations; G47.33 Obstructive sleep apnea (adult) (pediatric) | CPT/HCPCS: 93005 ==

== ENCOUNTER → 2024-04-24 13:39 | Outpatient (REF) | payer MEDICAID, SELFPAY ==
--- NOTE | 2024-04-24 13:44 | ECG_ITS ---
Test Reason : cp Blood Pressure : / mmHG Vent. Rate : 101 BPM Atrial Rate : 101 BPM P-R Int : 136 ms QRS Dur : 082 ms QT Int : 360 ms P-R-T Axes : 062 -05 058 degrees QTc Int : 466 ms Sinus tachycardia Otherwise normal ECG When compared with ECG of 03-MAY-2022 10:11, No significant change was found Referred By: Javan Noel Electronically Signed By:Neo Hodges
[2024-04-24 17:37] LABS: Troponin-I High Sensitivity 5.3 ng/L (<3.5-35.0)
== END ==
LOC: HO.CARD 13:39
PROVIDERS: PCP Internal Medicine; Visit Provider Internal Medicine
DX: R06.02 Shortness of breath (principal)
CPT/HCPCS: 36415; 84484; 93005

== ENCOUNTER 2024-04-24 15:16 | Outpatient (AMB) | payer OTHER, MEDICAID, SELFPAY ==
--- NOTE | 2024-04-24 16:01 | AM.OFFVISNUR ---
Intake Visit Reasons: ekg , then labs Intake Note: This is a 64-year-old male comes in for a nurse visit. Patient denies any cardiac symptoms today. Allergies Penicillins [PENICILLINS] Allergy (Intermediate, Verified 07/19/23 08:43) RASH lisinopril Allergy (Unknown, Verified 07/19/23 08:43) Itching Nursing Note EKG - normal sinus rhythm with sinus arrhythmia 92 beats per minute, normal axis, normal ST segments, normal SD. Assessment & Plan Assessment & Plan Patient Instructions: Pt continues to refuse to go to the ED. Will f/u with troponin and echo. Advised to visit the ED if he experiences persistent chest pain and shortness of breath, verbalizes understanding. Reiterated following his medication regimen.
== END 2024-04-24 16:10 | disposition home or self-care (01) ==
PROVIDERS: PCP Internal Medicine; Visit Provider Internal Medicine
DX: R00.0 Tachycardia, unspecified (principal)
CPT/HCPCS: 93010

== ENCOUNTER → 2024-04-25 12:44 | Outpatient (REF) | payer OTHER, SELFPAY ==
--- NOTE | 2024-04-25 12:47 | CA_ITS ---
Transthoracic Echocardiogram Patient (Last, First, Middle): Siddharth Dang, Gender: Male Date of : 1960 Age: 64 Procedure Date: 04/25/2024 Procedure Type: Transthoracic Echocardiogram Location: OP Height: 187.96 cm Weight: 106.99 kg BSA: 2.33 m2 Heart Rate: 94 bpm BP: 138 / 70 mmHg Package Clerk: SEN Referring MD: Javan Noel MD Cereal Maker: Gilles Jackson MD Symptoms: R06.02 - Shortness of breath Study Quality: Adequate w contrast ECG Rhythm: Sinus Conclusions: - 1. Normal LV ejection fraction of 60 65% with pseudonormal filling pattern 2. Cardiac valvular Dopplers within normal limits Findings Procedure Information Contrast agent, definity, is being given per protocol without apparent complications. The quality of the study was technically difficult. The study quality is limited by patients body habitus and lung artifact. Left Ventricle Normal left ventricular size, thickness, and systolic function. The visually estimated ejection fraction is between 60-65%. Spectral Doppler is indicative of a pseudonormal filling pattern. Wall Motion Rest Echo Findings The basal inferior and basal inferoseptal segments are hypokinetic. All other scored wall segments showed normal motion. Right Ventricle Normal right ventricular cavity size and systolic function. Atria The left atrium is likely dilated. Interatrial shunt cannot be excluded. The right atrium was not well visualized. Aortic Valve The aortic valve was not well visualized. There is mild calcification of the aortic valve. There is no aortic valve stenosis. There is trace (trivial) aortic valve regurgitation. Mitral Valve The mitral valve was not well visualized. There is mild anterior mitral leaflet thickening. There is trace mitral valve regurgitation. There is no mitral valve stenosis. Pulmonic Valve The pulmonic valve was not well visualized. Tricuspid Valve The tricuspid valve was not well visualized. Tricuspid regurgitation envelope is inadequate for calculation of right ventricular systolic pressure. Great Vessels All visible segments of the aorta are normal in size. The pulmonary artery was not well visualized. Small plaque is seen in the sino tubular ridge. Venous The inferior vena cava is normal in size and collapses greater than 50% with inspiration. Pericardium/Pleural There is no evidence of pericardial effusion. Prior Study Comparison No significant change compared to prior study dated: 07/12/2023. Measurements 2D Linear Measurements IVSd: 0.99 0.6-0.9/0.6-1.0 cm LVIDd: 5.41 3.9-5.3/4.2-5.9 cm LVIDd Index: 2.32 2.4-3.2/2.2-3.1 cm/m2 LVIDs: 3.79 2.0-3.6 cm LVPWd: 0.97 0.7-1.1 cm LA Diam: 4.00 2.7-3.8/3.0-4.0 cm LAIDs Index: 1.72 1.5-2.3 cm/m2 LV Mass: 251.15 67-162/88-224 g LV Mass Index: 107.79 43-95/49-115 g/m2 LVOT Diam: 2.60 3.0+(-)1.3 cm 2D Systolic Function EF 4C: 60.80 >55% EF 2C: 64.10 >55% EF BiP: 61.10 >55% Mitral Valve MV Pk E: 0.96 MV PK A: 0.54 MV Decel Time: 149.00 E/A: 1.80 E'Lateral: 6.30 E'Medial: 5.33 E/E' Med: 18.10 E/E' Lat: 15.30 PHT: 44.00 MVA PHT: 5.00 Decel [place]: 6.47 Aortic Valve AoV Pk Francisco Javier: 1.41 AoV Pk Grad: 8.00 YASMIN: 2.78 LVOT LVOT Pk Francisco Javier: 0.74 LVOT Mn Francisco Javier: 0.53 LVOT VTI: 0.14 LVOT Pk Grad: 2.00 LVOT Mn Grad: 1.00 LVOT Diam: 2.60 LVOT Area: 5.31 Diastolic Function MV Pk E: 0.96 MV Pk A: 0.54 E/A: 1.80 E'Medial: 5.33 E/E' Med: 18.10 E' Laterial: 6.30 E/E' Lat: 15.30 Right Ventricle TAPSE (mm): 18.80 TVS' Francisco Javier: 13.90 Tricuspid Valve RA Press: 3.00 Great Vessels Aorta Sinus of Valsalva: 3.20 2.0-3.5 cm Ao Asc: 3.00 2.1-3.4 cm Pulmonary Valve PV Pk Francisco Javier: 0.91 Peak PV Grad: 3.00 Updated in Other Vendor System with Status of Final Gilles Jackson MD electronically signed on 04/26/2024 10:34:11 AM with status of Final
== END ==
LOC: HO.CARD 12:44
PROVIDERS: PCP Internal Medicine; Visit Provider Internal Medicine
DX: R06.02 Shortness of breath (principal)
CPT/HCPCS: 93242; 93306; Q9957

== ENCOUNTER → 2024-04-25 12:47 | Outpatient (BNV) | payer OTHER, SELFPAY | PROVIDERS: PCP Internal Medicine; Visit Provider Internal Medicine Cardiovascular Disease | DX: I35.8 Other nonrheumatic aortic valve disorders (principal); R93.1 Abnormal findings on diagnostic imaging of heart and coronary circulation | CPT/HCPCS: 93306 ==

== ENCOUNTER 2024-05-02 07:57 | Outpatient (REF) | payer OTHER, SELFPAY ==
[2024-05-02 09:01] LABS: Estimated Average Glucose 194 mg/dL; Hemoglobin A1C 192.1719 umol/L; Hemoglobin A1c % 8.4 % (<6.0)
[2024-05-02 09:34] LABS: Alanine Aminotransferase 21 U/L (0-40); Albumin Level 4.3 g/dL (3.5-5.0); Alkaline Phosphatase 73 U/L (39-117); Anion Gap 13 (12-20); Aspartate Amino Transferase 22 U/L (5-37); Bilirubin Total 0.5 mg/dL (0.0-1.0); Blood Urea Nitrogen 13 mg/dL (9-16); Calcium 9.7 mg/dL (8.4-10.2); Carbon Dioxide 25 mmol/L (22-29); Chloride 104 mmol/L (96-108); Estimated Glomerular Filt Rate > 60; Glucose Random 152 mg/dL (60-115); Potassium 4.6 mmol/L (3.3-5.1); Sodium 137 mmol/L (135-145); Total Protein 7.6 g/dL (6.5-8.0)
[2024-05-02 09:44] LABS: Ferritin 11 ng/mL (20-250)
[2024-05-02 10:05] LABS: Prostate Specific Antigen Scr 0.51 ng/mL (<0.05-4.0)
== END 2024-05-02 07:58 | disposition home or self-care (01) ==
LOC: HO.LAB 07:57
PROVIDERS: PCP Internal Medicine; Visit Provider Internal Medicine
DX: Z00.01 Encounter for general adult medical examination with abnormal findings (principal); E11.40 Type 2 diabetes mellitus with diabetic neuropathy, unspecified; E11.65 Type 2 diabetes mellitus with hyperglycemia; E78.00 Pure hypercholesterolemia, unspecified; I10 Essential (primary) hypertension; N40.0 Benign prostatic hyperplasia without lower urinary tract symptoms
CPT/HCPCS: 36415; 80053; 82728; 83036; 84153

== ENCOUNTER → 2024-06-19 08:59 | Outpatient (REF) | payer OTHER, SELFPAY ==
--- OUTSIDE RECORDS SUMMARY | 2024-06-19 09:21 | XMS_ITS | Clinical Summary ---
Author Organization [address] [facility] Address [address] [place] [address] Phone Care Team Providers Care Central Lab Technician Name Role Phone Florence Dickerson MD Primary Care Provider [phone] Allergies Active Allergy Reactions Criticality Noted Date Comments Penicillins 05/31/2022 Sitagliptin 05/31/2022 Medications Medication Sig Dispensed Refills Start Date End Date Status LOSARTAN POTASSIUM, BULK, MISC Take by mouth. Active thiamine 100 mg tablet Take 1 tablet (100 mg total) by mouth 1 (one) time each day. 07/09/2022 Active ammonium lactate (LAC-HYDRIN) 12 % lotion Apply tothick skin and nails . At night wear socks to bed Stop if skin is irritated 07/04/2023 Active aspirin 81 mg EC tablet Take 1 tablet (81 mg total) by mouth 1 (one) time each day. Active atorvastatin (LIPITOR) 80 mg tablet Take 1 tablet (80 mg total) by mouth 1 (one) time each day. Active empagliflozin (Jardiance) 25 mg tablet Take by mouth. Active folic acid (FOLVITE) 1 mg tablet Take 1 tablet (1,000 mcg total) by mouth 1 (one) time each day. 05/28/2022 Active glipiZIDE (GLUCOTROL XL) 10 mg 24 hr tablet Take 1 tablet (10 mg total) by mouth 1 (one) time each day. 11/03/2022 Active levothyroxine (SYNTHROID, LEVOTHROID) 75 mcg tablet Take 1 tablet (75 mcg total) by mouth 1 (one) time each day. Active losartan (COZAAR) 100 mg tablet Take 1 tablet (100 mg total) by mouth 1 (one) time each day. 05/12/2022 Active metFORMIN (GLUCOPHAGE) 1,000 mg tablet Take 1 tablet (1,000 mg total) by mouth 2 (two) times a day with meals. Active metoprolol succinate (TOPROL-XL) 100 mg 24 hr tablet Take 1 tablet (100 mg total) by mouth 1 (one) time each day. 07/23/2022 Active metoprolol tartrate (LOPRESSOR) 100 mg tablet Take 1 tablet (100 mg total) by mouth 2 (two) times a day. Active nitroglycerin (NITROSTAT) 0.[address] 1 tablet (0.4 mg total) under the tongue every 5 (five) minutes if needed for chest pain. MAX 3 DOSES PER EPISODE 06/15/2022 Active omeprazole (PriLOSEC) [address] capsule Take 1 capsule (40 mg total) by mouth 1 (one) time each day. Active ticagrelor (BRILINTA) 90 mg tablet Take by mouth. Active Encounters Date Type Department Care Team Description 04/24/2024 9:15 AM EST Office Visit Orthopedic Surgery [address] [phone] Flavio Blake DPM Cellulitis of third toe of right foot (Primary Dx); Corns and callosities; Diabetic mononeuropathy simplex (CMS/HCC); Type II diabetes mellitus with peripheral circulatory disorder (CMS/HCC); Primary osteoarthritis of both feet 04/03/2024 9:15 AM EST Office Visit Orthopedic Surgery [address] [phone] Flavio Blake DPM Abscess of third toenail, right (Primary Dx); Dermatophytosis of nail; Pain in toe of right foot; Pain in toe of left foot; Diabetic mononeuropathy simplex (CMS/HCC); Hallux rigidus of right foot from Last 3 Months Social History Tobacco Use Types Packs/Day Years Used Date Smoking Tobacco: Never Assessed Sex and Gender Information Value Date Recorded Sex Assigned at Not on file Gender Identity Not on file Sexual Orientation Not on file Job Start Date Occupation Industry Not on file Not on file Not on file Last Filed Vital Signs Vital Sign Reading Time Taken Comments Blood Pressure - - Pulse - - Temperature - - Respiratory Rate - - Oxygen Saturation - - Inhaled Oxygen Concentration - - Weight 102 kg (224 lb) 04/24/2024 9:26 AM EST Height 188 cm (6' 2.02 ) 04/24/2024 9:26 AM EST Body Mass Index 28.75 04/24/2024 9:26 AM EST Plan of Treatment Upcoming Encounters Date Type Department Care Team (Late st Contact Info) Description 07/23/2024 9:15 AM EST Office Visit Orthopedic Surgery - [place] [phone] [phone] Flavio Blake, DPM [address] [phone] Health Maintenance Due Date Last Done Comments Diabetes: Annual GFR (Glomerular Filtration Rate) 1960 Diabetes: Annual Foot Exam 1969 Diabetes: Annual Retina Eye Exam 1969 RSV Immunization Patients 60+ Years Old (1 - Risk 60-74 years 1-dose series) 2019 Zoster Vaccines (2 of 2) 01/28/2022 12/03/2021, 02/20 Abdominal Aortic Aneurysm (AAA) Screen 06/21/2023 Cholesterol Screening (Lipid Panel) 06/21/2023 Colorectal Cancer Screening: Colonoscopy 06/21/2023 Depression Screening 06/21/2023 Hepatitis C Screening 06/21/2023 Social Influencers of Health Screening 06/21/2023 COVID-19 Vaccine ( season) 2024 12/03/2021, 04/24/2021, 12/02/2020, Additional history exists Falls Risk Assessment 02/24/2024 Diabetes: Annual Urine Albumin-Creatinine Ratio (uACR) 04/03/2024 Diabetes: Blood Sugar Control Test (HGBA1C) 04/03/2024 Pneumococcal Vaccine: 65+ Years (3 of 3 - PPSV23 or PCV20) 12/03/2026 12/03/2021, 12/31/2020 Pneumococcal Vaccine: Pediatrics (0 to 5 Years) and At-Risk Patients (6 to 64 Years) (3 of 3 - PPSV23 or PCV20) 12/03/2026 12/03/2021, 12/31/2020 DTaP,Tdap,and Td Vaccines (3 - Td or Tdap) 12/04/2031 12/03/2021, 12/31/2020 Influenza Vaccine Completed 04/06/2024, , 05/05/2022 HIB Vaccines Aged Out No longer eligi ble based on patient's age to complete this topic HPV Vaccines Aged Out No longer eligi ble based on patient's age to complete this topic Hepatitis A Vaccines Aged Out No long er eligible based on patient's age to complete this topic Hepatitis B Vaccines Aged Out No long er eligible based on patient's age to complete this topic IPV Vaccines Aged Out No longer eligi ble based on patient's age to complete this topic MMR Vaccines Aged Out No longer eligi ble based on patient's age to complete this topic Meningococcal ACWY Vaccine Aged Out N o longer eligible based on patient's age to complete this topic RSV Immunization Patients Under 20 months Aged Out No longer eligible based on patient's age to complete this topic Varicella Vaccines Aged Out No longer eligible based on patient's age to complete this topic Care Teams Central Lab Technician Relationship Specialty Start Date End Date Florence Dickerson MD [address] [facility] [address] PCP - General Internal Medicine 06/23/18
== END ==
LOC: HO.SL 08:59
PROVIDERS: PCP Internal Medicine; Visit Provider Internal Medicine
DX: G47.33 Obstructive sleep apnea (adult) (pediatric) (principal)
CPT/HCPCS: 95806

== ENCOUNTER → 2024-06-19 09:08 | Outpatient (BNV) | payer OTHER, SELFPAY | PROVIDERS: PCP Internal Medicine; Visit Provider Internal Medicine | DX: G47.33 Obstructive sleep apnea (adult) (pediatric) (principal) | CPT/HCPCS: 95806 ==

== ENCOUNTER 2024-07-05 10:07 | Outpatient (AMB) | payer OTHER, MEDICAID, SELFPAY ==
[2024-07-05 10:28] VITALS: BP 130/60; PULSE 103; O2SAT 99; BMI 31.8
--- NOTE | 2024-07-05 10:28 | A.OFFVIS_ITS ---
Vital Signs 07/05/24 10:28 Height 6 ft 1 in Weight 241 lb 6.499 oz BMI 31.8 BP 130/60 Blood Pressure Location Lt brachial Position Sitting Pulse 103 H Pulse Source Pulse Oximeter Pulse Oximetry (%) 99 Oxygen Delivery Method Room Air Intake Visit Reasons: negar Intake Note: pt is here as a new patient for sleep study follow up and he feels good today. He is a very loud snorer. Intravenous Therapy Nurse Required: No Allergies Penicillins [PENICILLINS] Allergy (Intermediate, Verified 07/05/24 11:16) RASH lisinopril Allergy (Unknown, Verified 07/05/24 11:16) Itching Medication List - Last Reconciled 07/05/24 by Delta Villegas MD amlodipine 5 mg PO DAILY aspirin 81 mg PO DAILY atorvastatin 80 mg PO DAILY empagliflozin (Jardiance) 25 mg PO DAILY glipizide ER 10 mg PO DAILY levothyroxine 75 mcg PO DAILY losartan 100 mg PO DAILY metformin 1,000 mg PO BID metoprolol succinate ER 100 mg PO DAILY nitroglycerin 0.4 mg sublingual Q5M PRN ticagrelor (Brilinta) 90 mg PO BID 90 days Do you need a note to return to daycare/school/sports/work: No HPI HPI negar: Details: This 64 years old gentleman, originally from [place], who has been here in [facility] for about 15 years, owns a convenience store. He does have history of coronary artery disease. In 2021, he had chest pain and ruled in for NSTEMI. Underwent cardiac catheterization and right coronary artery stenting. Then, he was still complaining of chest pains and that led to yet another catheterization in 09/2023 at [facility]. He was found to have 90% OM stenosis for which he underwent PCI. Still had residual RCA disease, medically managed. Multiple cardiovascular risk factors including diabetes, hypertension, dyslipide vincenzo. For cardiac issues he is being followed by Dr. Noel. Who ordered a home- based sleep study, which is abnormal and shows mild to moderate degree of obstructive sleep apnea. Patient is referred and is here to see me today, for further management. This gentleman's daughter is a physician at [employer], and I had a good conversation with her , in presence of the patient. There is history of loud snoring at night for the past 3-4 years. Patient has gained weight over the past 15-20 years. He sleeps mostly in right lateral position but during the night he does turn on his back. He say is he feels having good sleep waking only about 2 or 3 times per night. And he denies daytime sleepiness. During the daytime he runs his convenience store and is mostly on his feet, during the daytime. He does not have any other scheduled exercise program. He is nonsmoker, he does have a few drinks of hard liquor on a daily basis. [facility] Medical History (Updated 07/05/24 @ 11:35 by Delta Villegas MD) Obesity (BMI 30.0-34.9) NEGAR (obstructive sleep apnea) Mild obstructive sleep apnea Atherosclerotic cardiovascular disease Gastroesophageal reflux disease Other and unspecified hyperlipidemia Essential hypertension Type 2 diabetes mellitus with unspecified complications Precordial chest pain Surgical History Hx of cardiac cath H/O toe surgery Family History Father No problems noted. Mother No problems noted. Social History Household Members: Spouse Housing: Apartment Do you presently have visiting nurse or other home services: No Alcohol intake: current Alcohol intake frequency: 0-2 drinks per day Patient Tobacco Use Status: Former Tobacco user service: No Review of Systems Const All systems reviewed & are unremarkable except as noted in HPI and below Reports snoring (Loud snoring at night) Eyes Reports no additional complaints ENT Denies nasal congestion and Denies nasal discharge Card Reports chest pain (Has had previous history of chest pain, status post cardiac catheterization), Denies irregular heart rhythm and Denies leg edema Resp Reports no additional complaints, Denies cough, Reports snoring (Loud snoring at night) and Denies wheezing GI Reports no additional complaints Reports no additional complaints Musc Reports no additional complaints Skin/Breast Reports system reviewed and no additional complaints, except as documented Neuro Reports no additional complaints Psych Reports no additional complaints Endo Reports other (Diabetes mellitus, hypothyroidism and hypertension) Carlos/Lymph Reports no additional complaints Aller/Immun Denies wheezing Physical Exam Vital Signs: Last Vital Signs Pulse 103 H 02/13/25 10:28 BP 130/60 07/05/24 10:28 Pulse Ox 99 07/05/24 10:28 Oxygen Delivery Method Room Air 07/05/24 10:28 BMI result Body Mass Index 31.8 His face is round, neck is short and obese NECK CIRCUMFERENCE 17-1/2 INCH. Const General: healthy appearing (Except for being overweight), comfortable, no acute distress, alert and awake Orientation/consciousness: patient oriented x3 HEENT Head: Yes normal to inspection General nose exam: No nasal polyps present and No nasal discharge present Face and sinus: Yes sinuses nontender Mouth: oropharynx abnormals (Narrow and crowded, Mallampati class 4) Throat: Yes posterior oropharynx normal Eyes General: appearance normal, both eyes and all related structures Neck Neck: Yes normal visual inspection, Yes no lymphadenopathy, Yes trachea midline, Yes no JVD and Yes other (Neck circumference 17-1/2 inch) Thyroid: Thyroid normal Chest Chest palpation & inspection: normal inspection of the chest, normal palpation of entire chest wall and no tenderness Resp Effort & Inspection: normal respiratory effort Auscultation: clear to auscultation bilaterally, no crackles, no rhonchi and no wheezes Cardio Palpation: normal PMI Rate: regular rate Rhythm: regular rhythm Heart sounds: no gallops and no murmurs Peripheral pulses: Peripheral pulses 2+ throughout GI Palpation (GI): Soft to palpation, nontender, No hepatosplenomegaly present, no masses and Other GI palpation findings present (Abdomen is slightly protuberant) Auscultation: normal bowel sounds Back/Spine/Pelvis Thoracic/Lumbar Spine: thoracic and lumbar spine normal to inspection Skin General skin exam: no rashes or lesions noted Neuro General: patient oriented x3 and no focal motor deficits Cranial nerves: Yes CN's II-XII intact bilaterally Extrem General: Yes normal to inspection, Yes no clubbing, cyanosis or edema and Yes no calf tenderness Psych Appearance: grossly normal and well kempt Speech and movement: Normal speech and movement present Results Reviewed Results Reviewed: Sleep study on 06/19/2024 is reviewed. Total sleep time AHI 9.1. Supine position AHI 24. Right lateral position AHI 0.8, Left lateral position AHI 10.8 Assessment & Plan Assessment & Plan (1) NEGAR (obstructive sleep apnea): Comment: Patient does have mild obstructive sleep apnea, however during sleep in supine position it is moderately severe with AHI of 24. Snoring for 16% of the sleep time. Code(s): G47.33 - Obstructive sleep apnea (adult) (pediatric) Category: Medical Plan: For further management I had a good conversation with his daughter , who is cargo and ramp services manager at [employer]. Also had good conversation with him. Ordinarily for mild obstructive sleep apnea we may recommend conservative measures such as weight reduction and position therapy. However in his case having comorbidities including hypertension, diabetes mellitus, coronary artery disease, I think it is prudent to start him on CPAP therapy. After good conversation his daughter is in agreement, and explained to the patient and he is also in agreement to start on CPAP therapy. Will start him on CPAP using fullface mask which can later be changed to nasal mask, and pressure setting 6-20 cm. Patient was shown the CPAP machine and given instructions about the usage of CPAP. He is also advised to lose weight, by cutting down on the intake of carbohy drates and by doing more active physical exercise daily. If he can lose about 10% of the current body weight which will be around 25 lb, then we can re-evaluate if he still needs to use CPAP or not. (2) Obesity (BMI 30.0-34.9): Comment: He is moderately obese but especially in the neck area he is markedly obese, neck size 17-1/2 inch, and oropharynx is quite crowded. Code(s): E66.811 - Obesity, class 1 Category: Medical Plan: Discussed with him about weight reduction. 1 cut down the amount of drinking alcohol. 2 reduce intake of carbohydrates and calories, 3 walk about 2 miles every day. Coding Level of Care Code New Pt Level 4 (95267) Diagnoses NEGAR (obstructive sleep apnea) G47.33 Obesity (BMI 30.0-34.9) E66.811
--- OUTSIDE RECORDS SUMMARY | 2024-07-05 10:49 | XMS_ITS | Clinical Summary ---
Author Organization 175 [facility] Address [address] [place] [address] Phone Care Team Providers Care Warranty Coordinator Name Role Phone Florence Dickerson MD Primary Care Provider [phone] Allergies Active Allergy Reactions Criticality Noted Date Comments Penicillins 05/31/2022 Sitagliptin 05/31/2022 Medications LOSARTAN POTASSIUM, BULK, MISC Take by mouth. Acti ve thiamine 100 mg tablet Take 1 tablet (100 mg total) by mouth 1 (one) time each day. 3 Active ammonium lactate (LAC-HYDRIN) 12 % lotion Apply tothick skin and nails . At night wear socks to bed Stop if skin is irritated 4 Active aspirin 81 mg EC tablet Take 1 tablet (81 mg total) by mouth 1 (one) time each day. Active atorvastatin (LIPITOR) 80 mg tablet Take 1 tablet (80 mg total) by mouth 1 (one) time each day. Active empagliflozin (Jardiance) 25 mg tablet Take by mouth. Activ e folic acid (FOLVITE) 1 mg tablet Take 1 tablet (1,000 mcg total) by mouth 1 (one) time each day. 3 Active glipiZIDE (GLUCOTROL XL) 10 mg 24 hr tablet Take 1 tablet (10 mg total) by mouth 1 (one) time each day. 3 Active levothyroxine (SYNTHROID, LEVOTHROID) 75 mcg tablet Take 1 tablet (75 mcg total) by mouth 1 (one) time each day. Active losartan (COZAAR) 100 mg tablet Take 1 tablet (100 mg total) by mouth 1 (one) time each day. 2 Active metFORMIN (GLUCOPHAGE) 1,000 mg tablet Take 1 tablet (1,000 mg total) by mouth 2 (two) times a day with meals. Active metoprolol succinate (TOPROL-XL) 100 mg 24 hr tablet Take 1 tablet (100 mg total) by mouth 1 (one) time each day. 3 Active metoprolol tartrate (LOPRESSOR) 100 mg tablet Take 1 tablet (100 mg total) by mouth 2 (two) times a day. Active nitroglycerin (NITROSTAT) 0.[address] 1 tablet (0.4 mg total) under the tongue every 5 (five) minutes if needed for chest pain. MAX 3 DOSES PER EPISODE 3 Active omeprazole (PriLOSEC) [address] capsule Take 1 capsule (40 mg total) by mouth 1 (one) time each day. Active ticagrelor (BRILINTA) 90 mg tablet Take by mouth. Activ e Encounters Date Type Department Care Team Description 04/24/2024 9:15 AM EST Office Visit Orthopedic Surgery [address] [phone] Flavio Blake, DPM Cellulitis of third toe of right foot (Primary Dx); Corns and callosities; Diabetic mononeuropathy simplex (CMS/HCC); Type II diabetes mellitus with peripheral circulatory disorder (CMS/HCC); Primary osteoarthritis of both feet from Last 3 Months Social History Tobacco Use Types Packs/Day Years Used Date Smoking Tobacco: Never Assessed Sex and Gender Information Value Date Recorded Sex Assigned at Not on file Legal Sex Male 12:46 AM EST Gender Identity Not on file Sexual Orientation Not on file Last Filed Vital Signs [...] 9:15 AM EST Office Visit Orthopedic Surgery [facility] [address] [phone] Flavio Blake, DPM [address] [address] Health Maintenance Due Date Last Done Comments [...] Sugar Control Test (HGBA1C) 04/03/2024 Pneumococcal Vaccine: 50+ Years (3 of 3 - PCV20 or PCV21) 12/03/2026 12/03/2021, 12/31/2020 Pneumococcal Vaccine: Pediatrics (0 to 5 Years) and At-Risk Patients (6 to 64 Years) (3 of 3 - PCV20 or PCV21) 12/03/2026 12/03/2021, 12/31/2020 DTaP,Tdap,and Td Vaccines (3 [...] patient's age to complete this topic Meningococcal B Vacine Aged Out No lo nger eligible based on patient's age to complete this topic RSV Immunization Patients Under 20 months Aged Out No longer eligible based on patient's age to complete this topic Varicella Vaccines Aged Out No longer eligible based on patient's age to complete this topic Insurance MEDICA[place] - [place] Care Teams Warranty Coordinator Relationship Specialty Start Date End Date Florence Dickerson MD [address] [facility] [address] [place], [place] PCP - General Internal Medicine 06/23/18
== END 2024-07-05 11:18 | disposition home or self-care (01) ==
PROVIDERS: PCP Internal Medicine; Visit Provider Internal Medicine
DX: G47.33 Obstructive sleep apnea (adult) (pediatric) (principal); E66.811 Obesity, class 1; Z68.31 Body mass index [BMI] 31.0-31.9, adult
CPT/HCPCS: 99214

== ENCOUNTER → 2024-07-05 10:07 | Outpatient (BNVA) | payer OTHER, SELFPAY | PROVIDERS: PCP Internal Medicine; Visit Provider Internal Medicine | DX: G47.33 Obstructive sleep apnea (adult) (pediatric) (principal); E66.811 Obesity, class 1; Z68.31 Body mass index [BMI] 31.0-31.9, adult | CPT/HCPCS: 99212 ==

== ENCOUNTER 2024-07-23 07:48 | Outpatient (REF) | payer OTHER, MEDICAID, SELFPAY ==
--- OUTSIDE RECORDS SUMMARY | 2024-07-23 07:50 | XMS_ITS | Clinical Summary ---
Author Organization 175 [facility] Address [address] [place] [address] Phone Care Team Providers Care Design Teacher Name Role Phone Florence Dickerson MD Primary Care Provider [phone] Allergies Active Allergy Reactions Criticality Noted Date [...] 9:15 AM EST Office Visit Orthopedic Surgery [address] [phone] Flavio Blake, DPM Cellulitis of third toe [...] 9:15 AM EST Office Visit Orthopedic Surgery [facility] [address] [phone] Flavio Blake, DPM [address] [address] Health Maintenance Due Date Last Done Comments [...] topic Insurance [place]ICA[place] - [place] Care Teams Design Teacher Relationship Specialty Start Date End Date Florence Dickerson MD [address] [facility] [address] [place], [place] PCP - General Internal Medicine 06/23/18
[2024-07-23 10:42] LABS: Alanine Aminotransferase 21 U/L (0-40); Alkaline Phosphatase 66 U/L (39-117); Anion Gap 13 (12-20); Aspartate Amino Transferase 26 U/L (5-37); Bilirubin Total 0.5 mg/dL (0.0-1.0); Blood Urea Nitrogen 13 mg/dL (9-16); Calcium 8.5 mg/dL (8.4-10.2); Carbon Dioxide 21 mmol/L (22-29); Chloride 107 mmol/L (96-108); Estimated Glomerular Filt Rate > 60; Glucose Random 131 mg/dL (60-115); Sodium 137 mmol/L (135-145); Total Protein 7.4 g/dL (6.5-8.0)
[2024-07-23 10:46] LABS: Estimated Average Glucose 180 mg/dL; Hemoglobin A1C 163.3009 umol/L; Hemoglobin A1c % 7.9 % (<6.0); Total Hemoglobin (HGBA1C) 2596.9308 umol/L
[2024-07-23 11:00] LABS: Thyroid Stimulating Hormone 4.24 uIU/mL (0.32-4.0)
== END 2024-07-23 07:49 | disposition home or self-care (01) ==
LOC: HO.10HDL 07:48
PROVIDERS: Visit Provider Internal Medicine
DX: E03.8 Other specified hypothyroidism (principal); E11.40 Type 2 diabetes mellitus with diabetic neuropathy, unspecified; E11.65 Type 2 diabetes mellitus with hyperglycemia; Z95.818 Presence of other cardiac implants and grafts
CPT/HCPCS: 36415; 80053; 83036; 84443

== ENCOUNTER 2024-07-26 14:57 | Outpatient (AMB) | payer OTHER, MEDICAID, SELFPAY ==
[2024-07-26 15:11] VITALS: BP 120/62; PULSE 90; BMI 30.8
--- NOTE | 2024-07-26 15:11 | A.OFFVIS_ITS ---
Vital Signs 07/26/24 15:11 Height 6 ft 1 in Weight 233 lb 11.04 oz BMI 30.8 BP 120/62 Blood Pressure Location Lt brachial Position Sitting Pulse 90 Pulse Source Pulse Oximeter Intake Visit Reasons: Follow up Import/Export Freight Forwarder Required: No Accompanied by: Spouse Allergies Penicillins [PENICILLINS] Allergy (Intermediate, Verified 07/05/24 11:16) RASH lisinopril Allergy (Unknown, Verified 07/05/24 11:16) Itching Medication List - Last Reconciled 07/26/24 by Javan Noel MD amlodipine 5 mg PO DAILY aspirin 81 mg PO DAILY atorvastatin 80 mg PO DAILY empagliflozin (Jardiance) 25 mg PO DAILY glipizide ER 10 mg PO DAILY levothyroxine 88 mcg PO DAILY losartan 100 mg PO DAILY metformin 1,000 mg PO ONCE metoprolol succinate ER 100 mg PO DAILY nitroglycerin 0.4 mg sublingual Q5M PRN ticagrelor (Brilinta) 90 mg PO BID 90 days HPI Comments Details: Siddharth returns for follow-up. In 2021, he had chest pain and ruled in for NSTEMI. Underwent cardiac catheterization and right coronary artery stenting. Then, he was still complaining of chest pains and that led to yet another catheterization in 09/2023. He was found to have 90% OM stenosis for which he underwent PCI. Still had residual RCA disease, medically managed. Multiple cardiovascular risk factors including diabetes, hypertension, dyslipidemia. Last time, he was having some shortness of breath but according to patient, as well as daughter it is completely resolved and he is back to his normal self. Fairly active, traveling extra, with no limitations. Recently got diagnosed with obstructive sleep apnea but having difficulty using CPAP mask. PENDING SALE TO [facility] Medical History (Updated 07/05/24 @ 11:35 by Delta Villegas MD) Obesity (BMI 30.0-34.9) NEGAR (obstructive sleep apnea) Mild obstructive sleep apnea Atherosclerotic cardiovascular disease Gastroesophageal reflux disease Other and unspecified hyperlipidemia Essential hypertension Type 2 diabetes mellitus with unspecified complications Precordial chest pain Surgical History Hx of cardiac cath H/O toe surgery Family History Father No problems noted. Mother No problems noted. Social History Household Members: Spouse Housing: Apartment Do you presently have visiting nurse or other home services: No Alcohol intake: current Alcohol intake frequency: 0-2 drinks per day Patient Tobacco Use Status: Former Tobacco user service: No Review of Systems Const Denies chills, Denies fatigue, Denies fever(s), Denies frequent falls, Denies weakness, Denies weight gain and Denies weight loss ENT Denies dizziness Card Denies chest pain, Denies leg edema, Denies lightheadedness, Denies palpitations, Denies dyspnea and Denies dyspnea on exertion Resp Denies cough, Denies dyspnea and Denies dyspnea on exertion GI Denies hematochezia Musc Denies abnormal gait, Denies muscle weakness, Denies numbness, Denies radiating pain into limb and Denies tingling Neuro Denies abnormal gait, Denies dizziness, Denies frequent falls, Denies numbness, Denies tingling and Denies weakness Endo Denies fatigue and Denies palpitations Physical Exam Vital Signs: Last Vital Signs Pulse 90 07/26/24 15:11 BP 120/62 07/26/24 15:11 BMI result Body Mass Index 30.8 Const General: comfortable and no acute distress Orientation/consciousness: patient oriented x3 HEENT Other: Unremarkable Head: Yes normal to inspection Neck Neck: Yes normal visual inspection Chest Chest palpation & inspection: normal inspection of the chest Resp Auscultation: clear to auscultation bilaterally Cardio Palpation: normal PMI Heart sounds: S1 normal heart sound present, S2 normal heart sound present, no gallops, no murmurs and no rubs GI Palpation (GI): Soft to palpation Back/Spine/Pelvis Other: unremarkable Skin General skin exam: no rashes or lesions noted Neuro General: patient oriented x3 Extrem General: Yes normal to inspection Psych Mental Status: mental status grossly normal Assessment & Plan Assessment & Plan (1) Atherosclerotic cardiovascular disease: Code(s): I25.10 - Atherosclerotic heart disease of [place] coronary artery without angina pectoris Category: Medical (2) Type 2 diabetes mellitus with unspecified complications: Code(s): E11.8 - Type 2 diabetes mellitus with unspecified complications Category: Medical (3) Essential hypertension: Code(s): I10 - Essential (primary) hypertension Category: Medical (4) Other and unspecified hyperlipidemia: Code(s): E78.5 - Hyperlipidemia, unspecified Category: Medical Plan Pertinent studies reviewed. Cardiac catheterization 09/2023 -2nd marginal-proximal 90% stenosis, status post PCI. Prior RCA stent with mild ISR. Mid RCA 70% stenosis. Mild LAD disease. Echocardiogram 04/2024-LVEF 60-65%. Moderate diastolic dysfunction. Inferior wall motion abnormality. No significant valve findings. Holter 04/2024- underlying rhythm is sinus with an average rate of 95/Min. Sinus tachycardia about 29% of the time. Rare supraventricular/ventricular ectopy. Overall, stable coronary artery disease with multiple risk factors. Continue long-term aspirin. Brilinta for one year from time of stent. We discussed about that today. On beta-blockers. For hypertension, on losartan, amlodipine. Blood pressure is stable. For diabetes, on Jardiance, glipizide, metformin. Hemoglobin A1c is 7.9%. For dyslipidemia, on statins. Last LDL 61 mg/dL. Spoke to who came for appointment as well as called the daughter over phone. Follow-up in 6 months. They will contact us with any interim concerns. Medications: Refilled ticagrelor (Brilinta) 90 mg PO BID 180 tabs 0RF 90 days Coding Level of Care Code Est Pt Level 4 (62930) Complex EM visit Add On G2211 Diagnoses Atherosclerotic cardiovascular disease I25.10 Type 2 diabetes mellitus with unspecified complications E11.8 Essential hypertension I10 Other and unspecified hyperlipidemia E78.5
--- OUTSIDE RECORDS SUMMARY | 2024-07-26 18:28 | XMS_ITS | Encounter Summary ---
Author Organization [facility] Address [address] [place] [address] Care Team Providers Care Merchandising Intern Name Role Phone Florence Dickerson MD Primary Care Provider [phone] Reason for Visit * Reason Comments Follow-up Right foot 3rd toe p ain Encounter Details Date Type Department Care Team ([facility] st Contact Info) Description 07/23/2024 9:15 AM EST Office Visit Orthopedic Surgery - [place] [address] [phone] Flavio Blake, DPM [address] [address] Acquired hammer toe of right foot (Primary Dx); Dermatophytosis of nail; Corns and callosities; Diabetic mononeuropathy simplex (CMS/HCC); Pain in toe of right foot; Pain in toe of left foot; Type II diabetes mellitus with peripheral circulatory disorder (CMS/HCC); Primary osteoarthritis of both feet; Hallux rigidus of right foot; Hammer toe of left foot [M20.42] Social History Tobacco Use Types Packs/Day Years Used Date Smoking Tobacco: Never Assessed Sex and Gender Information Value Date Recorded Sex Assigned at Not on file Legal Sex Male 12:46 AM EST Gender Identity Not on file Sexual Orientation Not on file documented as of this encounter Last Filed Vital Signs Vital Sign Reading Time Taken Comments Blood Pressure - - Pulse - - Temperature - - Respiratory Rate - - Oxygen Saturation - - Inhaled Oxygen Concentration - - Weight 102 kg (224 lb) 07/23/2024 9:17 AM EST Height 188 cm (6' 2.02 ) 07/23/2024 9:17 AM EST Body Mass Index 28.75 07/23/2024 9:17 AM EST documented in this encounter Progress Notes * Flavio Blake DPM - 07/23/2024 9:15 AM EST S Patient presents doing very well at this time is getting some new callus worsening inside of his feet and his his right third toe has resolved states redness swelling has resolved is finished oral and topical antibiotics as prescribed patient does noticing worsening curling of his toes specific hisright fifth toe x-ray to get a thick callus in that area he states he has been training for wider shoe gear does on occasion gets throbbing swelling pain in his right great toe he states the flares have been less common less often but still occasionally notes pain is comes a 5 out of 10 on a visualanalog scale he has plans to travel out of the country next month Last PCP visit 06/06/2024 Florence Dickerson MD ROS: GENERAL: Pt denies nausea, fever, vomiting, chills, or shortness of breath. Pt in NAD. CARDIOLOGY: pt denies chest pain, palpitations LUNGS: pt denies shortness of breath MUSCULOSKELETAL: See HPI, otherwise no joint pain or swelling, back pain, or muscle pain. SKIN: see HPI, otherwise no lesions, rash or itching NEURO: No persistent headache, weakness or numbness The remainder of the review of systems is noncontributory PAST MEDICAL HISTORY: There is no problem list on file for this patient. Uncontrolled type 2 diabetes with history of amputation SOCIAL HISTORY: Social History Tobacco Use Smoking status: Not on file Smokeless tobacco: Not on file Substance Use Topics Alcohol use: Not on file ACTIVE MEDICATIONS: Outpatient Medications Marked as Taking for the 07/23/24 encounter (Office Visit) with Flavio Blake DPM Medication Sig Dispense Refill ammonium lactate (LAC-HYDRIN) 12 % lotion Apply tothick skin and nails . At night wear socks to bed Stop if skin is irritated aspirin 81 mg EC tablet Take 1 tablet (81 mg total) by mouth 1 (one) time each day. atorvastatin (LIPITOR) 80 mg tablet Take 1 tablet (80 mg total) by mouth 1 (one) time each day. empagliflozin (Jardiance) 25 mg tablet Take by mouth. folic acid (FOLVITE) 1 mg tablet Take 1 tablet (1,000 mcg total) by mouth 1 (one) time each day. glipiZIDE (GLUCOTROL XL) 10 mg 24 hr tablet Take 1 tablet (10 mg total) by mouth 1 (one) time each day. levothyroxine (SYNTHROID, LEVOTHROID) 75 mcg tablet Take 1 tablet (75 mcg total) by mouth 1 (one) time each day. losartan (COZAAR) 100 mg tablet Take 1 tablet (100 mg total) by mouth 1 (one) time each day. LOSARTAN POTASSIUM, BULK, MISC Take by mouth. metFORMIN (GLUCOPHAGE) 1,000 mg tablet Take 1 tablet (1,000 mg total) by mouth 2 (two) times a day with meals. metoprolol succinate (TOPROL-XL) 100 mg 24 hr tablet Take 1 tablet (100 mg total) by mouth 1 (one) time each day. metoprolol tartrate (LOPRESSOR) 100 mg tablet Take 1 tablet (100 mg total) by mouth 2 (two) times aday. nitroglycerin (NITROSTAT) 0.[address] 1 tablet (0.4 mg total) under the tongue every 5 (five) minutes if needed for chest pain. MAX 3 DOSES PER EPISODE omeprazole (PriLOSEC) [address] capsule Take 1 capsule (40 mg total) by mouth 1 (one) time each day. thiamine 100 mg tablet Take 1 tablet (100 mg total) by mouth 1 (one) time each day. ticagrelor (BRILINTA) 90 mg tablet Take by mouth. ALLERGIES: Allergies Allergen Reactions Penicillins Sitagliptin PHYSICAL EXAM: Visit Vitals Ht 1.88 m (74.02 ) Wt 102 kg (224 lb) BMI 28.75 kg/m?? BSA 2.28 m?? PODIATRIC EXAMINATION: GENERAL: Patient appears well nourished, with NAD. VASCULAR: Dorsalis pedis pulses are 2/4 bilaterally and Posterior tibial pulses are 2/4 bilaterally. Capillary filling time within normal limits the digits. No pallor on elevation or rubor on dependency. Positive hair growth. No varicosities. Denies rest pain or claudication pain. NEUROLOGICAL: Sharp/dull sensation absent, protective sensation absent 0/10 with 5.07 semmes monroe bilaterally, vibratory sensation with tuning fork intact to the tibial tuberosity. ORTHOPEDIC: Good muscle strength 5/5 of all flexors and extensors. Dorsi flexion of ankle ,10 degrees, plantar flexion WNL. No muscle atrophy. DERMATOLOGICAL:. Toenails: Left Toenail(s) 1-5: Discolored Thickened elongated hypertrophic Right Toenail(s) 1,4,5:Discolored Thickened elongated hypertrophic Hyperkeratotic tissue overlying PIPJ fifth digit bilateral BIOMECHANICS: STJ ROM wnl, MTJ ROM wnl, 1st MPJ ROM severe limitation bilaterally with advanced crepitation of the right foot. Rectus hammertoe right second and third Worsening hammertoe contracture of the right fifth digit IMAGING: Postoperative films consistent with stable amputation with no new bony changes Micro biology and pathology from mercury are negative for acute residual osteomyelitis IMPRESSION: 1. Acquired hammer toe of right foot 2. Dermatophytosis of nail 3. Corns and callosities 4. Diabetic mononeuropathy simplex (CMS/HCC) 5. Pain in toe of right foot 6. Pain in toe of left foot 7. Type II diabetes mellitus with peripheral circulatory disorder (CMS/HCC) 8. Primary osteoarthritis of both feet 9. Hallux rigidus of right foot 10. Hammer toe of left foot [M20.42] PLAN: Discussed with patient advanced arthritis of his foot diabetic neuropathy and other treatment modalities Neuropathy was discussed with patient may benefit from lidocaine Voltaren gel discussed with him possible benefits from Voltaren gel especially because now he is having neuropathic pain Voltaren gel continue with medication for right great toe be applied twice daily patient can continue with medication she will call for refills steroid injections were discussed and reviewed I would recommend trying Toradol injections prior to pursuing steroid injections due to patient's diabetes and risk of making it harder for him to control Surgical options were discussed including MPJ fusion versus implant patient would likely benefit from MPJ fusion portion of the pursue this to be having chronic pain discomfort and would pursue an injection prior to pursuing surgical intervention for relief Discussed alternative treatment modalities with patient I would recommend primary arthrodesis if surgery pursued given the neatness of the severe degeneration and need for stability given his heavy activities Patient is getting worsening hammertoe contracture deformities of the right fifth digit and left fifth digit with preulcerative lesion and skin breakdown to discussed with patient is at risk for ulceration of this area would strongly recommend wider shoe gear silicone toe sleeve patient may benefitfrom prophylactic arthroplasty in this area did a preulcerative lesion further discussion to be pursued at next appointment New x-rays ordered both feet 3 views I reviewed neuropathy and why it occurs in diabetics. I educated the patient on proper blood sugar control and the importance of an HgBA1c of less than 7.0%. Resolved cellulitis right third toe noted skin is completely healed can discontinue topical antibiotic ointment Follow-up in 3 months Debridement of mycotic toenails 6-10: Verbal informed consent was obtained from the patient. Greater than 6 nails were aseptically debrided in thickness and length with nail nippers Hyperkeratotic tissue debrided pared with a number #15 scalpel blade x2 Flavio Blake DPM documented in this encounter Plan of Treatment Upcoming Encounters Date Type Department Care Team (Late st Contact Info) Description 10/23/2024 9:30 AM EDT Office Visit Orthopedic Surgery - [place] [address] [phone] Flavio Blake DPM [address] [id number] documented as of this encounter Visit Diagnoses Diagnosis Acquired hammer toe of right foot- Primary Dermatophytosis of nail Corns and callosities Diabetic mononeuropathy simplex (CMS/HCC) Type II or unspecified type diabetes mellitus with neurological manifestations, not stated as uncontrolled Pain in toe of right foot Pain in soft tissues of limb Pain in toe of left foot Pain in soft tissues of limb Type II diabetes mellitus with peripheral circulatory disorder (CMS/HCC) Type II or unspecified type diabetes mellitus with peripheral circulatory disorders, not stated as uncontrolled Primary osteoarthritis of both feet Hallux rigidus of right foot Hammer toe of left foot [M20.42] documented in this encounter Care Teams Merchandising Intern Relationship Specialty Start Date End Date Florence Dickerson MD [address] PCP - General Internal Medicine 06/23/18 documented as of this encounter
--- OUTSIDE RECORDS SUMMARY | 2024-07-26 18:28 | XMS_ITS | Clinical Summary ---
Author Organization 175 [facility] Address [address] [place] [address] Phone Care Team Providers Care Contact Acid Plant Operator Helper Name Role Phone Florence Dickerson MD Primary Care Provider [phone] Allergies Active Allergy Reactions Criticality Noted Date [...] Encounters Date Type Department Care Team Description 07/23/2024 9:15 AM EST Office Visit Orthopedic Surgery - [address] [phone] Flavio Blake DPBree Acquired hammer toe of right foot (Primary Dx); Dermatophytosis of nail; Corns and callosities; Diabetic mononeuropathy simplex (CMS/HCC); Pain in toe of right foot; Pain in toe of left foot; Type II diabetes mellitus with peripheral circulatory disorder (CMS/HCC); Primary osteoarthritis of both feet; Hallux rigidus of right foot; Hammer toe of left foot [M20.42] from Last 3 Months Social History Tobacco [...] Mass Index 28.75 07/23/2024 9:17 AM EST Plan of Treatment Upcoming Encounters Date Type Department Care Team (Late st Contact Info) Description 10/23/2024 9:30 AM EDT Office Visit Orthopedic Surgery - [place] [address] [phone] Flavio Blake, DPM [address] [phone] Health Maintenance Due Date Last Done Comments [...] topic Insurance MEDICAID - [place] Care Teams Contact Acid Plant Operator Helper Relationship Specialty Start Date End Date Florence Dickerson MD 1221 [facility] [address] [place] PCP - General Internal Medicine 06/23/18
== END 2024-07-26 15:30 | disposition home or self-care (01) ==
PROVIDERS: PCP Internal Medicine; Visit Provider Internal Medicine
DX: I25.10 Atherosclerotic heart disease of native coronary artery without angina pectoris (principal); E11.8 Type 2 diabetes mellitus with unspecified complications; I10 Essential (primary) hypertension; E78.5 Hyperlipidemia, unspecified
CPT/HCPCS: 99214; G2211

== ENCOUNTER → 2024-07-26 14:57 | Outpatient (BNVA) | payer OTHER, SELFPAY | PROVIDERS: PCP Internal Medicine; Visit Provider Internal Medicine | DX: I10 Essential (primary) hypertension (principal); I25.10 Atherosclerotic heart disease of native coronary artery without angina pectoris; E11.8 Type 2 diabetes mellitus with unspecified complications; E78.5 Hyperlipidemia, unspecified; G47.33 Obstructive sleep apnea (adult) (pediatric); Z99.89 Dependence on other enabling machines and devices | CPT/HCPCS: 99212 ==

== ENCOUNTER 2024-10-23 06:40 | Outpatient (REF) | payer OTHER, SELFPAY ==
[2024-10-23 07:39] LABS: Estimated Average Glucose 166 mg/dL; Hemoglobin A1c % 7.4 % (<6.0)
[2024-10-23 07:53] LABS: Alanine Aminotransferase 20 U/L (0-40); Albumin Level 4.6 g/dL (3.5-5.0); Alkaline Phosphatase 81 U/L (39-117); Anion Gap 11 (12-20); Aspartate Amino Transferase 23 U/L (5-37); Bilirubin Total 0.5 mg/dL (0.0-1.0); Blood Urea Nitrogen 10 mg/dL (9-16); Calcium 9.3 mg/dL (8.4-10.2); Carbon Dioxide 24 mmol/L (22-29); Chloride 107 mmol/L (96-108); Estimated Glomerular Filt Rate > 60; Glucose Random 129 mg/dL (60-115); Potassium 4.1 mmol/L (3.3-5.1); Sodium 138 mmol/L (135-145); Total Protein 7.9 g/dL (6.5-8.0)
[2024-10-23 08:01] LABS: Thyroid Stimulating Hormone 3.04 uIU/mL (0.32-4.0)
== END 2024-10-23 06:41 | disposition home or self-care (01) ==
LOC: HO.LAB 06:40
PROVIDERS: PCP Internal Medicine; Visit Provider Internal Medicine
DX: E03.8 Other specified hypothyroidism (principal); E11.65 Type 2 diabetes mellitus with hyperglycemia; I10 Essential (primary) hypertension; Z95.818 Presence of other cardiac implants and grafts; G47.33 Obstructive sleep apnea (adult) (pediatric); E66.811 Obesity, class 1
CPT/HCPCS: 36415; 80053; 83036; 84443; 99212

== ENCOUNTER 2024-10-23 09:26 | Outpatient (AMB) | payer OTHER, MEDICAID, SELFPAY ==
[2024-10-23 09:33] VITALS: BP 130/60; PULSE 85; O2SAT 100; BMI 30.4
--- NOTE | 2024-10-23 09:33 | A.OFFVIS_ITS ---
Vital Signs 10/23/24 09:33 Height 6 ft 1 in Weight 230 lb 6.129 oz BMI 30.4 BP 130/60 Blood Pressure Location Lt brachial Position Sitting Pulse 85 Pulse Source Pulse Oximeter Pulse Oximetry (%) 100 Oxygen Delivery Method Room Air Intake Visit Reasons: emerald Intake Note: pt is here for follow up and is not using the cpap, had pressure issue and was out of the country of [place] 2 months, and states his right side of nose is always blocked Paradi Operator Required: No Allergies Penicillins [PENICILLINS] Allergy (Intermediate, Verified 10/23/24 09:39) RASH lisinopril Allergy (Unknown, Verified 10/23/24 09:39) Itching Medication List - Last Reconciled 10/23/24 by Delta Villegas MD amlodipine 5 mg PO DAILY aspirin 81 mg PO DAILY atorvastatin 80 mg PO DAILY empagliflozin (Jardiance) 25 mg PO DAILY glipizide ER 10 mg PO DAILY levothyroxine 88 mcg PO DAILY losartan 100 mg PO DAILY metformin 1,000 mg PO ONCE metoprolol succinate ER 100 mg PO DAILY nitroglycerin 0.4 mg sublingual Q5M PRN ticagrelor (Brilinta) 90 mg PO BID 90 days Do you need a note to return to daycare/school/sports/work: No HPI HPI emerald: Details: THIS 64 YEARS OLD GENTLEMAN IS HERE FOR FOLLOW-UP FOR HIS SLEEP APNEA AFTER HIS LAST VISIT WE HAD PRESCRIBED CPAP WITH AUTO PAP MODE, USING A FULLFACE MASK. HE DID GET THE CPAP DEVICE, TRY TO USE IT FOR A FEW DAYS AND FELT THAT PRESSURE WAS TOO HIGH. THEN HE WENT TO [facility] FOR 2 MONTHS AND DID NOT USE THE CPAP OVER THE. HE IS BACK, AGAIN SAYING THAT HE FINDS VERY UNCOMFORTABLE WITH THE CPAP ON, HIS RIGHT NOSTRIL IS PERMANENTLY BLOCKED DUE TO A NASAL SEPTUM DEFORMITY. THAT IS WHY WE HAD OPTED FOR THE FULLFACE MASK FOR HIM. HE IS TRYING TO LOSE WEIGHT AND HAS LOST ABOUT 2-3 LB SINCE HIS LAST VISIT. [facility] Medical History Obesity (BMI 30.0-34.9) EMERALD (obstructive sleep apnea) Mild obstructive sleep apnea Atherosclerotic cardiovascular disease Gastroesophageal reflux disease Other and unspecified hyperlipidemia Essential hypertension Type 2 diabetes mellitus with unspecified complications Precordial chest pain Surgical History Hx of cardiac cath H/O toe surgery Family History Father No problems noted. Mother No problems noted. Social History Household Members: Spouse Housing: Apartment Do you presently have visiting nurse or other home services: No Alcohol intake: current Alcohol intake frequency: 0-2 drinks per day Patient Tobacco Use Status: Former Tobacco user service: No Review of Systems Const All systems reviewed & are unremarkable except as noted in HPI and below Reports snoring (Loud snoring at night) Eyes Reports no additional complaints ENT Denies nasal congestion and Denies nasal discharge Card Reports chest pain (Has had previous history of chest pain, status post cardiac catheterization), Denies irregular heart rhythm and Denies leg edema Resp Reports no additional complaints, Denies cough, Reports snoring (Loud snoring at night) and Denies wheezing GI Reports no additional complaints Reports no additional complaints Musc Reports no additional complaints Skin/Breast Reports system reviewed and no additional complaints, except as documented Neuro Reports no additional complaints Psych Reports no additional complaints Endo Reports other (Diabetes mellitus, hypothyroidism and hypertension) Carlos/Lymph Reports no additional complaints Aller/Immun Denies wheezing Physical Exam Vital Signs: Last Vital Signs Pulse 85 10/23/24 09:33 BP 130/60 10/23/24 09:33 Pulse Ox 100 10/23/24 09:33 Oxygen Delivery Method Room Air 10/23/24 09:33 BMI result Body Mass Index 30.4 His face is round, neck is short and obese NECK CIRCUMFERENCE 17-1/2 INCH. 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,), No nasal polyps present and No nasal discharge present Face and sinus: Yes sinuses nontender Mouth: oropharynx abnormals (Narrow and crowded, Mallampati class 4) Throat: Yes posterior oropharynx normal Eyes General: appearance normal, both eyes and all related structures Neck Neck: Yes normal visual inspection, Yes no lymphadenopathy, Yes trachea midline, Yes no JVD and Yes other (Neck circumference 17-1/2 inch) Thyroid: Thyroid normal Chest Chest palpation & inspection: normal inspection of the chest, normal palpation of entire chest wall and no tenderness Resp Effort & Inspection: normal respiratory effort Auscultation: clear to auscultation bilaterally, no crackles, no rhonchi and no wheezes Cardio Palpation: normal PMI Rate: regular rate Rhythm: regular rhythm Heart sounds: no gallops and no murmurs Peripheral pulses: Peripheral pulses 2+ throughout GI Palpation (GI): Soft to palpation, nontender, No hepatosplenomegaly present, no masses and Other GI palpation findings present (Abdomen is slightly protuberant) Auscultation: normal bowel sounds Back/Spine/Pelvis Thoracic/Lumbar Spine: thoracic and lumbar spine normal to inspection Skin General skin exam: no rashes or lesions noted Neuro General: patient oriented x3 and no focal motor deficits Cranial nerves: Yes CN's II-XII intact bilaterally Extrem General: Yes normal to inspection, Yes no clubbing, cyanosis or edema and Yes no calf tenderness Psych Appearance: grossly normal and well kempt Speech and movement: Normal speech and movement present Results Reviewed Results Reviewed: COMPLIANCE REPORT NOT AVAILABLE HE DID NOT USE THE CPAP Assessment & Plan Assessment & Plan (1) EMERALD (obstructive sleep apnea): Comment: Patient does have mild obstructive sleep apnea, however during sleep in supine position it is moderately severe with AHI of 24. Snoring for 16% of the sleep time. He did get his CPAP machine with auto PAP mode and pressure setting 6-16 cm. With full face mask. He has not use the CPAP yet, tried for a few days and felt that it is uncomfortable. Then he went out of country for 2 months. Now he is back and will try. To use the CPAP Code(s): G47.33 - Obstructive sleep apnea (adult) (pediatric) Category: Medical Plan: Had a good discussion with him again. I told him that he is on auto PAP mode and so pressure , . Should not be a big problem He also has F-40 , fullface mask , so nasal obstruction should not be a problem. Discussed with him about the importance of compliance otherwise he may lose his CPAP device. He may try to use the CPAP even during the daytime when he is sitting up and watching TV. (2) Obesity (BMI 30.0-34.9): Comment: He is moderately obese but especially in the neck area he is markedly obese, neck size 17-1/2 inch, and oropharynx is quite crowded. If he does not comply with the use of CPAP then the best but may be for him to lose weight. Code(s): E66.811 - Obesity, class 1 Category: Medical Plan: Again advised that he needs to lose about 20-25 lb of weight. Also advised that he should sleep in lateral position Coding Level of Care Code Est Pt Level 3 (83690) Diagnoses EMERALD (obstructive sleep apnea) G47.33 Obesity (BMI 30.0-34.9) E66.811
== END 2024-10-23 09:51 | disposition home or self-care (01) ==
LOC: HO.HPS 09:26
PROVIDERS: PCP Internal Medicine; Visit Provider Internal Medicine
DX: G47.33 Obstructive sleep apnea (adult) (pediatric) (principal); E66.811 Obesity, class 1
CPT/HCPCS: 99213

== ENCOUNTER 2024-11-15 15:18 | Outpatient (AMB) | payer OTHER, SELFPAY ==
--- NOTE | 2024-11-15 15:29 | A.OFFVIS_ITS ---
Vital Signs 11/15/24 15:37 Height 6 ft 1 in Weight 233 lb BMI 30.7 BP 137/63 Blood Pressure Location Rt brachial Position Sitting Pulse 93 Intake Visit Reasons: axillary skin tags Intake Note: Patient referred by pcp Dr. Dickerson for evaluation of skin tags on bilateral axilla. Present for yrs. Patient c/o: no symptoms. Denies itch, irritation, pain. 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 Accompanied by: Self / Same As Patient Allergies Penicillins (PENICILLINS) Allergy (Intermediate, Verified 11/15/24 15:34) RASH lisinopril Allergy (Unknown, Verified 11/15/24 15:34) Itching sitagliptin (From [employer]) Adverse Reaction (Mild, Verified 11/15/24 15:34) Headache Medication List - Last Reconciled 11/15/24 by Ron Joseph MD amlodipine 5 mg PO DAILY aspirin 81 mg PO DAILY atorvastatin 80 mg PO DAILY empagliflozin (Jardiance) 25 mg PO DAILY glipizide ER 10 mg PO DAILY levothyroxine 88 mcg PO DAILY losartan 100 mg PO DAILY metformin 1,000 mg PO ONCE metoprolol succinate ER 100 mg PO DAILY nitroglycerin 0.4 mg sublingual Q5M PRN ticagrelor (Brilinta) 90 mg PO BID 90 days HPI HPI axillary skin tags: Details: 64-year-old male referred for multiple skin lesions on both axilla and the neck. He says that he has had this for many years. This has been increasing in size and number. He denies any drainage. He denies any bleeding. He has a history of coronary artery disease and had stents placed in 2019 as well as 2021. He is on Brilinta for this. [facility] Medical History (Updated 11/15/24 @ 15:56 by Ron Joseph MD) Benign skin lesion of multiple sites Obesity (BMI 30.0-34.9) NEGAR (obstructive sleep apnea) Mild obstructive sleep apnea Atherosclerotic cardiovascular disease Gastroesophageal reflux disease Other and unspecified hyperlipidemia Essential hypertension Type 2 diabetes mellitus with unspecified complications Precordial chest pain Surgical History Hx of cardiac cath H/O toe surgery Family History Father No problems noted. Mother No problems noted. Social History Household Members: Spouse Housing: Apartment Do you presently have visiting nurse or other home services: No Alcohol intake: current Alcohol intake frequency: 0-2 drinks per day Patient Tobacco Use Status: Former Tobacco user service: No Review of Systems Const Denies chills and Denies fever(s) Card Denies chest pain, Denies dyspnea and Denies dyspnea on exertion Resp Denies cough, Denies dyspnea and Denies dyspnea on exertion GI Denies hematochezia and Denies change in bowel habits Denies hematuria and Denies difficulty urinating Musc Denies back pain and Denies limited range of motion Neuro Denies focal weakness and Denies convulsions Psych Denies depression and Denies mood swings Physical Exam Vital Signs: Last Vital Signs Pulse 93 11/15/24 15:37 BP 137/63 11/15/24 15:37 BMI result Body Mass Index 30.7 Const General: comfortable and no acute distress Orientation/consciousness: patient oriented x3 Neck Other: Small fibromatosis lesions on the left neck, about 2-3 mm in size Neck: Yes no lymphadenopathy Resp Auscultation: clear to auscultation bilaterally Cardio Rhythm: regular rhythm GI Palpation (GI): Soft to palpation, nontender and no guarding Skin Other: He has multiple fibromatous looking lesions both the left and right axilla, numbering about 10 all in all, ranging in size from about a mm to 8 mm Neuro General: patient oriented x3 Assessment & Plan Assessment & Plan (1) Benign skin lesion of multiple sites: Code(s): L98.9 - Disorder of the skin and subcutaneous tissue, unspecified Category: Medical Plan: He has he has multiple skin lesions on the axilla on the left and right side as well as in the left neck. He wants these removed. 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 I explained the technique of excision under local anesthesia. I reviewed the risks including but not limited to bleeding, poor healing and infections, as well as the benefits and alternatives. The he had given consent This will be done in the office on his next visit. Coding Level of Care Code New Pt Level 3 (30710) Diagnoses Benign skin lesion of multiple sites L98.9
[2024-11-15 15:37] VITALS: BP 137/63; PULSE 93; BMI 30.7
== END 2024-11-15 15:59 | disposition home or self-care (01) ==
LOC: HO.HGS 15:19
PROVIDERS: PCP Internal Medicine; Visit Provider Surgery
DX: L98.9 Disorder of the skin and subcutaneous tissue, unspecified (principal)
CPT/HCPCS: 99203

== ENCOUNTER → 2024-11-15 15:18 | Outpatient (BNVA) | payer OTHER, SELFPAY | PROVIDERS: PCP Internal Medicine; Visit Provider Surgery | DX: L98.9 Disorder of the skin and subcutaneous tissue, unspecified (principal) | CPT/HCPCS: 99202 ==

== ENCOUNTER 2025-01-14 08:57 | Outpatient (AMB) | payer MEDICAID, SELFPAY ==
--- NOTE | 2025-01-14 08:58 | MHC.OFFVIS ---
Vital Signs 01/14/25 09:05 Height 6 ft 1 in Weight 228 lb BMI 30.1 BP 117/60 Blood Pressure Location Rt brachial Position Sitting Pulse 101 H Intake Visit Reasons: removal axillary skin tags Intake Note: Patient here for removal of fibroepithelial polyps on bilateral axilla and left neck. Patient c/o: reports skin tags get irritated with clothing. Dental Biller Required: No Accompanied by: Ivette aDng Allergies Penicillins (PENICILLINS) Allergy (Intermediate, Verified 01/14/25 09:05) RASH lisinopril Allergy (Unknown, Verified 01/14/25 09:05) Itching sitagliptin (From Januvia) Adverse Reaction (Mild, Verified 01/14/25 09:05) Headache HPI HPI removal axillary skin tags: Details: He is here for excision of multiple papillomatous lesions from his neck and both axilla. [facility] Medical History (Updated 11/15/24 @ 15:56 by Ron Joseph MD) Benign skin lesion of multiple sites Obesity (BMI 30.0-34.9) NEGAR (obstructive sleep apnea) Mild obstructive sleep apnea Atherosclerotic cardiovascular disease Gastroesophageal reflux disease Other and unspecified hyperlipidemia Essential hypertension Type 2 diabetes mellitus with unspecified complications Precordial chest pain Surgical History Hx of cardiac cath H/O toe surgery Family History Father No problems noted. Mother No problems noted. Social History Household Members: Spouse Housing: Apartment Do you presently have visiting nurse or other home services: No Alcohol intake: current Alcohol intake frequency: 0-2 drinks per day Patient Tobacco Use Status: Former Tobacco user service: No Physical Exam Vital Signs: Last Vital Signs Pulse 101 H 01/14/25 09:05 BP 117/60 01/14/25 09:05 BMI result Body Mass Index 30.1 Office Procedures Excision Details: There was note of a papillomatous lesion on the right neck, about 6 cm. There was note of a small papillomatous lesion on the left neck about 3 mm. The areas were prepped and draped. Lidocaine 1% was used for local anesthesia. Both of these were excised with scissors. The excision site was cauterized. Dressings were applied. 12229-Onrvpnre scalp/neck/hands/feet/genitalia 0.6cm-1cm Details: multiple papillomatous/soft fibromatosis lesions on both the left and the right axilla. There were 6 on the left side, with 1 measuring about 2 cm with a narrow base, and other lesions measuring 1 cm more or less. These areas were prepped and draped. Lidocaine 1% was used for local anesthesia. I used scissors to excise all these lesions. The excision base were cauterized for hemostasis. Multiple similar lesions were seen on the right axilla. Three of these were noted and 1 was about 1 cm in size. All areas were prepped and draped. Lidocaine 1% was used for local anesthesia. Excised all these lesions with Metzenbaum scissors and cauterized the base with electrocautery. He tolerated procedure well. There were no immediate complications. Dressings were applied. 02445-yadyg/arms/legs 1.1-2cm (He had multiple lesions on both left and right axilla.) Procedure code (CPT) selection complete Assessment & Plan Assessment & Plan (1) Benign skin lesion of multiple sites: Code(s): L98.9 - Disorder of the skin and subcutaneous tissue, unspecified Category: Medical Plan: All in all, about 11 lesions were excised. He tolerated procedure well. There were no immediate complications. Dressings were applied. He can take Tylenol p.r.n. for pain. He had come to the office as needed for any concerns with regards to wound healing. He was given wound care instructions. Orders: Orders Surgical Today L98.9 - Disorder of the skin and subcutaneous tissue, unspecified Coding Level of Care Code Procedure Only Diagnoses Benign skin lesion of multiple sites L98.9 CPT Codes Trunk/Arms/Legs - CPT: 44495-hhwlk/arms/legs 1.1-2cm ([id number]) Scalp/Neck/Hands/Feet/Genetalia - CPT: 51756-Lfscodsj scalp/neck/hands/feet/genitalia 0.6cm-1cm ([id number])
[2025-01-14 09:05] VITALS: BP 117/60; PULSE 101; BMI 30.1
--- OUTSIDE RECORDS SUMMARY | 2025-01-14 09:38 | XMS_ITS | Clinical Summary ---
Author Organization 175 [facility] Address [address] [place] [address] Phone Care Team Providers Care [employer] Name Role Phone Florence Dickerson MD Primary Care Provider [phone] Allergies Active Allergy Reactions Criticality Noted Date [...] Encounters Date Type Department Care Team Description 10/23/2024 10:45 AM EDT Office Visit Orthopedic Surgery - [address] [phone] Flavio Blake, DPM Hallux rigidus of right foot (Primary Dx); Primary osteoarthritis of both feet; Corns and callosities; Diabetic mononeuropathy simplex (CMS/HCC V24, CMS/HCC V28); Pain in toe of right foot; Dermatophytosis of nail; Pain in toe of left foot; Type II diabetes mellitus with peripheral circulatory disorder (CMS/HCC V24, CMS/HCC V28) from Last 3 Months Social History Tobacco [...] Concentration - - Weight 102 kg (224 lb 13.9 oz) 10/23/2024 8:54 A M EDT Height 188 cm (6' 2.02 ) 10/23/2024 8:54 AM EDT Body Mass Index 28.86 10/23/2024 8:54 AM EDT Plan of Treatment Upcoming Encounters Date Type Department Care Team (Late st Contact Info) Description 01/23/2025 9:30 AM EDT Office Visit Orthopedic Surgery - [place] [address] [phone] Flavio Blake, DPM [address] [address] Health Maintenance Due Date Last Done Comments Diabetes: Annual GFR (Glomerular Filtration Rate) 1959 Diabetes: Annual Foot Exam 1969 Diabetes: Annual Retina Eye Exam 1969 RSV Immunization Adult Patients (1 - Risk 60-74 years 1-dose series) 2019 Zoster Vaccines (2 of 2) 01/28/2022 12/03/2021, 02/20 Abdominal Aortic Aneurysm (AAA) Screen 06/21/2023 Cholesterol Screening (Lipid Panel) 06/21/2023 Colorectal Cancer Screening: Colonoscopy 06/21/2023 Hepatitis C Screening 06/21/2023 Medicare Annual Wellness Visit 06/21/2023 Social Influencers of Health Screening 06/21/2023 COVID-19 Vaccine ( season) 2024 12/03/2021, 04/24/2021, 12/02/2020, Additional history exists Falls Risk Assessment 02/24/2024 Depression Screening 05/23/2024 Diabetes: Annual Urine Albumin-Creatinine Ratio (uACR) 10/23/2024 Diabetes: Blood Sugar Control Test (HGBA1C) 10/23/2024 Influenza Vaccine (#1) 2025 , 06/07/2023, 05/05/2022 Pneumococcal Vaccine: 50+ Years (3 of 3 - PCV20 or PCV21) 12/03/2026 12/03/2021, 12/31/2020 DTaP,Tdap,and Td Vaccines (3 - Td or Tdap) 12/04/2031 12/03/2021, 12/31/2020 HIB Vaccines Aged Out No longer eligi [...] age to complete this topic Meningococcal B Vaccine Aged Out No l onger eligible based on patient's age to complete this topic RSV Immunization Patients Under 20 months Aged Out No longer eligible based on patient's age to complete this topic Varicella Vaccines Aged Out No longer eligible based on patient's age to complete this topic Procedures Procedure Name Priority Date/Time Associated Diagnosis Comments XR FOOT 3+ VIEWS BILAT Routine 10/23/2024 11:10 AM EDT Follow-up exam from Last 3 Months Results * XR Foot 3+ Views bilat (10/23/2024 11:10 AM EDT) Anatomical Region Laterality Modality Lower Extremities, Foot Bilateral Computed Radiography Narrative 10/23/2024 11:39 AM EDT Right foot 3 views No fracture. No radiopaque foreign joint spaces advanced arthritis of the right great toe joint complete ablation loss of joint space Stable amputation right second digit Foot position Pes planus with Talus navicular uncovering decreased calcaneal inclination anterior displaced symes line talus navicular joint to calcaneal cuboid joint Left foot 3 views No fracture. No radiopaque foreign joint spaces Arthritis mild Foot position Pes planus with Talus navicular uncovering decreased calcaneal inclination anterior displaced symes line talus navicular joint to calcaneal cuboid joint Flavio Blake DPM IMG XR PROCEDURES Final R esult from Last 3 Months Insurance MEDICA[place] - [place] MED[place]ARE [place] Care Teams [employer] Relationship Specialty Start Date End Date Florence Dickerson MD [address] PCP - General Internal Medicine 06/23/18
== END 2025-01-14 09:24 | disposition home or self-care (01) ==
LOC: HO.HGS 08:58
PROVIDERS: PCP Internal Medicine; Visit Provider Surgery
DX: L91.8 Other hypertrophic disorders of the skin (principal)
CPT/HCPCS: 11402; 11421

== ENCOUNTER 2025-01-14 08:57 | Outpatient (REF) | payer MEDICARE, MEDICAID, SELFPAY | END 2025-01-14 08:58 | disposition home or self-care (01) | LOC: HO.LNP 08:57 | PROVIDERS: PCP Internal Medicine; Visit Provider Surgery | DX: D23.5 Other benign neoplasm of skin of trunk (principal); D23.4 Other benign neoplasm of skin of scalp and neck | CPT/HCPCS: 11402; 11421; 88304 ==

== ENCOUNTER 2025-01-16 06:14 | Outpatient (REF) | payer MEDICARE, MEDICAID, SELFPAY ==
--- OUTSIDE RECORDS SUMMARY | 2025-01-16 06:17 | XMS_ITS | Clinical Summary ---
Author Organization 175 [facility] Address 175 [place] [address] Phone Care Team Providers Care Event Marketing Coordinator Name Role Phone Florence Dickerson MD Primary Care Provider [phone] Allergies Active Allergy Reactions Criticality Noted Date [...] AM EDT Office Visit Orthopedic Surgery - [address] [phone] Flavio Blake, DPM Hallux rigidus of right [...] AM EDT Office Visit Orthopedic Surgery - [place] [address] [place] [phone] Flavio Blake, DPM [address] [place] [phone] Health Maintenance Due Date Last Done Comments [...] from Last 3 Months Insurance [place] - [place] Care Teams Event Marketing Coordinator Relationship Specialty Start Date End Date Florence Dickerson MD [facility] [address] PCP - General Internal Medicine 06/23/18
[2025-01-16 06:28] LABS: MANUAL DIFF FLAG NO
[2025-01-16 07:40] LABS: Hematocrit 34.5 % (42.0-52.0); Hemoglobin 10.0 g/dl (14.0-18.0); Imm Gran Abs Auto 0.12 X10*3/uL (0.00-0.03); Imm Gran Pct Auto 1.4 % (0.0-0.4); Lymphocytes Absolute Auto 1.7 X10*3/uL (1.2-4.9); Mean Corpuscular HGB Conc 29.0 g/dl (31.0-36.0); Mean Corpuscular Hemoglobin 21.6 pg (27.0-33.0); Mean Corpuscular Volume 74.4 fL (80.0-98.0); NRBC Abs Auto 0.000 X10*3/uL (0.0-0.012); NRBC Pct Auto 0.0 /100WBC (0.0-0.2); Platelet Count 300 X10*3/uL (160-400); Red Blood Count 4.64 X10*6/uL (4.60-5.80); White Blood Count 8.6 X10*3/uL (4.8-10.8)
[2025-01-16 07:49] LABS: Hemoglobin A1C 152.4331 umol/L; Total Hemoglobin (HGBA1C) 2656.4422 umol/L
[2025-01-16 08:23] LABS: Alanine Aminotransferase 21 U/L (0-40); Albumin Level 4.5 g/dL (3.5-5.0); Alkaline Phosphatase 96 U/L (39-117); Anion Gap 13 (12-20); Aspartate Amino Transferase 28 U/L (5-37); Blood Urea Nitrogen 10 mg/dL (9-16); Calcium 9.3 mg/dL (8.4-10.2); Carbon Dioxide 22 mmol/L (22-29); Chloride 106 mmol/L (96-108); Estimated Glomerular Filt Rate > 60; Potassium 4.7 mmol/L (3.3-5.1); Sodium 136 mmol/L (135-145); Total Protein 7.6 g/dL (6.5-8.0)
== END 2025-01-16 06:15 | disposition home or self-care (01) ==
LOC: HO.LAB 06:14
PROVIDERS: PCP Internal Medicine; Visit Provider Internal Medicine
DX: I10 Essential (primary) hypertension (principal); E11.9 Type 2 diabetes mellitus without complications; L91.8 Other hypertrophic disorders of the skin; N40.0 Benign prostatic hyperplasia without lower urinary tract symptoms; E03.8 Other specified hypothyroidism; E78.00 Pure hypercholesterolemia, unspecified
CPT/HCPCS: 36415; 80053; 82043; 82570; 83036; 85025; 99212

== ENCOUNTER 2025-01-16 10:39 | Outpatient (AMB) | payer MEDICARE, MEDICAID, SELFPAY ==
[2025-01-16 11:02] VITALS: BP 120/60; PULSE 100; O2SAT 99; BMI 30.1
--- NOTE | 2025-01-16 11:02 | A.OFFVIS_ITS ---
Vital Signs 01/16/25 11:02 Height 6 ft 1 in Weight 228 lb 2.855 oz BMI 30.1 BP 120/60 Blood Pressure Location Lt brachial Position Sitting Pulse 100 Pulse Source Pulse Oximeter Pulse Oximetry (%) 99 Oxygen Delivery Method Room Air Intake Visit Reasons: emerald Intake Note: Pt c/o of stuffy nose. Accompanied by: Self / Same As Patient Allergies Penicillins (PENICILLINS) Allergy (Intermediate, Verified 01/16/25 11:53) RASH lisinopril Allergy (Unknown, Verified 01/16/25 11:53) Itching sitagliptin (From Januvia) Adverse Reaction (Mild, Verified 01/16/25 11:53) Headache Medication List - Last Reconciled 01/16/25 by Delta Villegas MD amlodipine 5 mg PO DAILY aspirin 81 mg PO DAILY atorvastatin 80 mg PO DAILY empagliflozin (Jardiance) 25 mg PO DAILY glipizide ER 10 mg PO DAILY levothyroxine 88 mcg PO DAILY losartan 100 mg PO DAILY metformin 1,000 mg PO ONCE metoprolol succinate ER 100 mg PO DAILY nitroglycerin 0.4 mg sublingual Q5M PRN ticagrelor (Brilinta) 90 mg PO BID 90 days Do you need a note to return to daycare/school/sports/work: No HPI HPI emerald: Details: 64 YEARS OLD GENTLEMAN , ORIGINALLY FROM [facility] IN [facility] , 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 HE IS STILL WORKING A PROPERTY DEALER. HE HAD HOME-BASED SLEEP STUDY IN JUNE OF THIS YEAR, WHICH SHOWED THAT HE HAD MILD OBSTRUCTIVE SLEEP APNEA, MOSTLY IN SUPINE POSITION. HE HAS BEEN PROVIDED WITH THIS CPAP DEVICE INITIALLY WITH A NASAL MASK WHICH HE COULD NOT USE IT ALL, AND THEN FULLFACE MASK, F 40 MODEL . EVEN THAT MASK IS NOT COMFORTABLE. SO PRACTICALLY HE IS NOT USING THE CPAP AT ALL. HE IS TRYING TO CONTROL. HIS FIT AND SLEEPS IN RIGHT LATERAL POSITION. HE SAY IS HE GETS ABOUT 7 HOURS SLEEP EVERY NIGHT WITH GOOD QUALITY WAKING UP ONLY ONCE DURING THE NIGHT. HE WAKES UP REFRESHED AND DENIES ANY DAYTIME SLEEPINESS. COUNT INCLUDES THE [facility] Medical History Benign skin lesion of multiple sites Obesity (BMI 30.0-34.9) EMERALD (obstructive sleep apnea) Mild obstructive sleep apnea Atherosclerotic cardiovascular disease Gastroesophageal reflux disease Other and unspecified hyperlipidemia Essential hypertension Type 2 diabetes mellitus with unspecified complications Precordial chest pain Surgical History Hx of cardiac cath H/O toe surgery Family History Father No problems noted. Mother No problems noted. Social History Household Members: Spouse Housing: Apartment Do you presently have visiting nurse or other home services: No Alcohol intake: current Alcohol intake frequency: 0-2 drinks per day Patient Tobacco Use Status: Former Tobacco user service: No Review of Systems Const All systems reviewed & are unremarkable except as noted in HPI and below Reports snoring (Loud snoring at night) Eyes Reports no additional complaints ENT Denies nasal congestion and Denies nasal discharge Card Reports chest pain (Has had previous history of chest pain, status post cardiac catheterization), Denies irregular heart rhythm and Denies leg edema Resp Reports no additional complaints, Denies cough, Reports snoring (Loud snoring at night) and Denies wheezing GI Reports no additional complaints Reports no additional complaints Musc Reports no additional complaints Skin/Breast Reports system reviewed and no additional complaints, except as documented Neuro Reports no additional complaints Psych Reports no additional complaints Endo Reports other (Diabetes mellitus, hypothyroidism and hypertension) Carlos/Lymph Reports no additional complaints Aller/Immun Denies wheezing Physical Exam Vital Signs: Last Vital Signs Pulse 100 01/16/25 11:02 BP 120/60 01/16/25 11:02 Pulse Ox 99 01/16/25 11:02 Oxygen Delivery Method Room Air 01/16/25 11:02 BMI result Body Mass Index 30.1 His face is round, neck is short and obese NECK CIRCUMFERENCE 17-1/2 INCH. 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,), No nasal polyps present and No nasal discharge present Face and sinus: Yes sinuses nontender Mouth: oropharynx abnormals (Narrow and crowded, Mallampati class 4) Throat: Yes posterior oropharynx normal Eyes General: appearance normal, both eyes and all related structures Neck Neck: Yes normal visual inspection, Yes no lymphadenopathy, Yes trachea midline, Yes no JVD and Yes other (Neck circumference 17-1/2 inch) Thyroid: Thyroid normal Chest Chest palpation & inspection: normal inspection of the chest, normal palpation of entire chest wall and no tenderness Resp Effort & Inspection: normal respiratory effort Auscultation: clear to auscultation bilaterally, no crackles, no rhonchi and no wheezes Cardio Palpation: normal PMI Rate: regular rate Rhythm: regular rhythm Heart sounds: no gallops and no murmurs Peripheral pulses: Peripheral pulses 2+ throughout GI Palpation (GI): Soft to palpation, nontender, No hepatosplenomegaly present, no masses and Other GI palpation findings present (Abdomen is slightly protuberant) Auscultation: normal bowel sounds Back/Spine/Pelvis Thoracic/Lumbar Spine: thoracic and lumbar spine normal to inspection Skin General skin exam: no rashes or lesions noted Neuro General: patient oriented x3 and no focal motor deficits Cranial nerves: Yes CN's II-XII intact bilaterally Extrem General: Yes normal to inspection, Yes no clubbing, cyanosis or edema and Yes no calf tenderness Psych Appearance: grossly normal and well kempt Speech and movement: Normal speech and movement present Results Reviewed Results Reviewed: THERE IS NO COMPLIANCE REPORT, HE DOES NOT USE THE CPAP DEVICE Assessment & Plan Assessment & Plan (1) Obesity (BMI 30.0-34.9): Comment: He is moderately obese but especially in the neck area. neck size 172 inch, and oropharynx is moderately crowded. If he does not comply with the use of CPAP then the best but may be for him to lose weight. Code(s): E66.811 - Obesity, class 1 Category: Medical Plan: Talked about the weight, he has lost about 5 lb of weight since last visit. I encouraged him to lose 5-10 more lb of weight. (2) EMERALD (obstructive sleep apnea): Comment: Patient does have mild obstructive sleep apnea, however during sleep in supine position it is moderately severe with AHI of 24. Snoring for 16% of the sleep time. Because of his history of hypertension and coronary artery disease, it was felt that it be good for him to use the CPAP. However because of his permanent nasal deformity and right nostril obstruction, he is not able to use the CPAP. Nasal mask as well as full face mask has been tried. In addition he travels very frequently . As noted in the history he is able to sleep about 7 hours good sleep at per night, as long as he sleeps in lateral position. Code(s): G47.33 - Obstructive sleep apnea (adult) (pediatric) Category: Medical Plan: Because of ongoing difficulty in using the CPAP, I told him that he can continue with conservative measures. Try to lose 5-10 lb of weight. Always sleep in lateral position. And does not have to use the CPAP. Coding Level of Care Code Est Pt Level 3 (24036) Diagnoses Obesity (BMI 30.0-34.9) E66.811 EMERALD (obstructive sleep apnea) G47.33
== END 2025-01-16 11:25 | disposition home or self-care (01) ==
LOC: HO.HPS 10:39
PROVIDERS: PCP Internal Medicine; Visit Provider Internal Medicine
DX: E66.811 Obesity, class 1 (principal); G47.33 Obstructive sleep apnea (adult) (pediatric)
CPT/HCPCS: 99213

== ENCOUNTER 2025-01-30 09:04 | Outpatient (AMB) | payer OTHER, MEDICAID, SELFPAY ==
[2025-01-30 09:15] VITALS: BP 120/60; PULSE 91; BMI 29.7
--- NOTE | 2025-01-30 09:15 | A.OFFVIS_ITS ---
Vital Signs 01/30/25 09:15 Height 6 ft 1 in Weight 224 lb 13.944 oz BMI 29.7 BP 120/60 Blood Pressure Location Lt brachial Position Sitting Pulse 91 Pulse Source Monitor Intake Visit Reasons: 6m follow up Allergies Penicillins (PENICILLINS) Allergy (Intermediate, Verified 01/16/25 11:53) RASH lisinopril Allergy (Unknown, Verified 01/16/25 11:53) Itching sitagliptin (From Januvia) Adverse Reaction (Mild, Verified 01/16/25 11:53) Headache Medication List - Last Reconciled 01/30/25 by Javan Noel MD amlodipine 5 mg PO DAILY aspirin 81 mg PO DAILY atorvastatin 80 mg PO DAILY empagliflozin (Jardiance) 25 mg PO DAILY glipizide ER 10 mg PO DAILY levothyroxine 88 mcg PO DAILY losartan 100 mg PO DAILY metformin 1,000 mg PO ONCE metoprolol succinate ER 100 mg PO DAILY nitroglycerin 0.4 mg sublingual Q5M PRN ticagrelor (Brilinta) 90 mg PO BID 90 days HPI Comments Details: Siddharth returns for follow-up regarding coronary artery disease. In 2021, he had chest pain and ruled in for NSTEMI. Underwent cardiac catheterization and right coronary artery stenting. Then, he was still complaining of chest pains and that led to yet another catheterization in 09/2023. He was found to have 90% OM stenosis for which he underwent PCI. Still had residual RCA disease, medically managed. Multiple cardiovascular risk factors including diabetes, hypertension, dyslipidemia. Over the last few weeks, he has again having chest pain. Gets worse with acti vity and suggestive of angina. Currently, he is pain-free. [facility] Medical History Benign skin lesion of multiple sites Obesity (BMI 30.0-34.9) NEGAR (obstructive sleep apnea) Mild obstructive sleep apnea Atherosclerotic cardiovascular disease Gastroesophageal reflux disease Other and unspecified hyperlipidemia Essential hypertension Type 2 diabetes mellitus with unspecified complications Precordial chest pain Surgical History Hx of cardiac cath H/O toe surgery Family History Father No problems noted. Mother No problems noted. Social History Household Members: Spouse Housing: Apartment Do you presently have visiting nurse or other home services: No Alcohol intake: current Alcohol intake frequency: 0-2 drinks per day Patient Tobacco Use Status: Former Tobacco user service: No Review of Systems Const Denies weakness ENT Reports dizziness Card Reports chest pain, Denies chest pain with activity, Denies syncope, Denies rapid heart rate, Denies pedal edema, Denies edema, Denies leg edema, Denies lightheadedness, Denies palpitations, Reports dyspnea, Denies dyspnea on exertion and Denies orthopnea Resp Denies cough, Reports dyspnea and Denies dyspnea on exertion GI Denies hematochezia and Denies change in stool character Musc Denies abnormal gait, Denies muscle cramps, Denies muscle weakness, Denies n umbness, Denies radiating pain into limb and Denies tingling Neuro Denies abnormal gait, Reports dizziness, Denies syncope, Denies numbness, Denies tingling and Denies weakness Endo Denies palpitations Physical Exam Vital Signs: Last Vital Signs Pulse 91 01/30/25 09:15 BP 120/60 01/30/25 09:15 BMI result Body Mass Index 29.7 Const General: comfortable and no acute distress Orientation/consciousness: patient oriented x3 HEENT Other: Unremarkable Head: Yes normal to inspection Neck Neck: Yes normal visual inspection Chest Chest palpation & inspection: normal inspection of the chest Resp Auscultation: clear to auscultation bilaterally Cardio Palpation: normal PMI Heart sounds: S1 normal heart sound present, S2 normal heart sound present, no gallops, no murmurs and no rubs GI Palpation (GI): Soft to palpation Back/Spine/Pelvis Other: unremarkable Skin General skin exam: no rashes or lesions noted Neuro General: patient oriented x3 Extrem General: Yes normal to inspection Psych Mental Status: mental status grossly normal Office Procedures EKG Details: EKG with underlying sinus rhythm at 91/Min; nonspecific ST-T changes in the inferior leads and anterolateral [place]; [place]. [id number], Complete Assessment & Plan Assessment & Plan (1) Angina pectoris: Code(s): I20.9 - Angina pectoris, unspecified Category: Medical (2) Atherosclerotic cardiovascular disease: Code(s): I25.10 - Atherosclerotic heart disease of [place] coronary artery without angina pectoris Category: Medical (3) Type 2 diabetes mellitus with unspecified complications: Code(s): E11.8 - Type 2 diabetes mellitus with unspecified complications Category: Medical (4) Essential hypertension: Code(s): I10 - Essential (primary) hypertension Category: Medical (5) Other and unspecified hyperlipidemia: Code(s): E78.5 - Hyperlipidemia, unspecified Category: Medical Plan Pertinent studies reviewed. Cardiac catheterization 09/2023 -2nd marginal-proximal 90% stenosis, status post PCI. Prior RCA stent with mild ISR. Mid RCA 70% stenosis. Mild LAD disease. Echocardiogram 04/2024-LVEF 60-65%. Moderate diastolic dysfunction. Inferior wall motion abnormality. No significant valve findings. Holter 04/2024- underlying rhythm is sinus with an average rate of 95/Min. Sinus tachycardia about 29% of the time. Rare supraventricular/ventricular ectopy. Due to recurrence of angina, he needs another cardiac catheterization unlikely PCI to RCA. We discussed about this today. We will arrange at the earliest opportunity. He is currently pain-free and advised him to avoid any strenuous physical activity for the time being. He can use sublingual nitroglycerin when necessary and if the pain does not resolve, he needs to seek emergency help. Also discussed with daughter over the phone. With regard to medications, he can continue the same regimen including aspirin, Brilinta, diabetes/blood pressure meds and statins. Discussion Notes During the visit, we discussed the patient's chest pain and the need for an angiogram to evaluate the right coronary artery stenosis. The risks and benefits of stenting were considered, and it was agreed that intervention may be necessary. The patient was advised to rest and use nitroglycerin as needed, with instructions to seek emergency care if pain becomes severe or unmanageable. Patient was informed and verbally consented to the use of an ambient scribe for clinic note documentation during this visit. Orders: Orders Cardiac Cath LT w PCI Today I25.10 - Atherosclerotic heart disease of [place] coronary artery without angina pectoris Patient Instructions: - Rest and avoid strenuous activities. - Use nitroglycerin as needed for chest pain. - Seek emergency care if chest pain becomes severe or does not resolve with nitroglycerin. Coding Level of Care Code Est Pt Level 5 (63556) Complex EM visit Add On G2211 Diagnoses Angina pectoris I20.9 Atherosclerotic cardiovascular disease I25.10 Type 2 diabetes mellitus with unspecified complications E11.8 Essential hypertension I10 Other and unspecified hyperlipidemia E78.5 CPT Codes EKG - CPT: 19822-Yzaguzsxvdwrgmvde, Complete ([id number])
--- OUTSIDE RECORDS SUMMARY | 2025-01-30 10:43 | XMS_ITS | Clinical Summary ---
Author Organization 175 [facility] Address [address] [place] [address] Phone Care Team Providers Care Service Station Manager Name Role Phone Florence Dickerson MD Primary Care Provider [phone] Allergies Active Allergy Reactions Criticality Noted Date Comments Lisinopril 01/23/2025 Penicillin Rash 07/05/2022 Penicillins 05/31/2022 Sitagliptin 05/31/2022 Medications LOSARTAN POTASSIUM, [...] Encounters Date Type Department Care Team Description 01/23/2025 9:30 AM EDT Office Visit Orthopedic Surgery [address] [address] Flavio Blake, DPM Hallux rigidus of right foot (Primary Dx); Primary osteoarthritis of both feet; Diabetic mononeuropathy simplex (CMS/HCC V24, CMS/HCC V28); Corns and callosities; Pain in toe of right foot; Acquired hammer toe of right foot; Hammer toe of left foot [M20.42]; Type II diabetes mellitus with peripheral circulatory disorder (CMS/HCC V24, CMS/HCC V28); Pain in toe of left foot; Dermatophytosis of nail from Last 3 Months Social History Tobacco Use Types Packs/Day Years Used Date Smoking Tobacco: Never Assessed Sex and Gender Information Value Date Recorded Sex Assigned at Not on file Legal Sex Male 12:46 AM EST Gender Identity Not on file Sexual Orientation Not on file Obstetrics History Last Filed Vital Signs Vital Sign Reading Time Taken Comments Blood Pressure - - Pulse - - Temperature - - Respiratory Rate - - Oxygen Saturation - - Inhaled Oxygen Concentration - - Weight 102 kg (224 lb 13.9 oz) 01/23/2025 9:19 A M EDT Height 188 cm (6' 2.02 ) 01/23/2025 9:19 AM EDT Body Mass Index 28.86 01/23/2025 9:19 AM EDT Plan of Treatment Upcoming Encounters Date Type Department Care Team (Late st Contact Info) Description 04/24/2025 10:00 AM EST Office Visit Orthopedic Surgery - [place] [address] [address] Flavio Blake, DPM [address] [address] Health Maintenance Due Date Last Done Comments [...] 06/21/2023 Social Influencers of Health Screening 06/21/2023 Falls Risk Assessment 02/24/2024 Depression Screening 05/23/2024 COVID-19 Vaccine ( season) 2025 12/03/2021, 04/24/2021, 12/02/2020, Additional history exists Influenza Vaccine (#1) 2025 , 06/07/2023, 05/05/2022 Diabetes: Annual Urine Albumin-Creatinine Ratio (uACR) 01/23/2025 Diabetes: Blood Sugar Control Test (HGBA1C) 01/23/2025 Pneumococcal Vaccine: 50+ Years (3 of 3 [...] complete this topic Insurance [place] MEDICARE [employer] Care Teams Service Station Manager Relationship Specialty Start Date End Date Florence Dickerson MD [address] PCP - General Internal Medicine 06/23/18
== END 2025-01-30 09:52 | disposition home or self-care (01) ==
LOC: HO.HCS 09:05
PROVIDERS: PCP Internal Medicine; Visit Provider Internal Medicine
DX: I11.9 Hypertensive heart disease without heart failure (principal); I25.118 Atherosclerotic heart disease of native coronary artery with other forms of angina pectoris; E11.8 Type 2 diabetes mellitus with unspecified complications; E78.5 Hyperlipidemia, unspecified; R94.31 Abnormal electrocardiogram [ECG] [EKG]
CPT/HCPCS: 93010; 99215

== ENCOUNTER → 2025-01-30 09:04 | Outpatient (BNVA) | payer MEDICARE, MEDICAID, SELFPAY | PROVIDERS: PCP Internal Medicine; Visit Provider Internal Medicine | DX: I25.119 Atherosclerotic heart disease of native coronary artery with unspecified angina pectoris (principal); E11.8 Type 2 diabetes mellitus with unspecified complications; I10 Essential (primary) hypertension; E78.5 Hyperlipidemia, unspecified; Z87.891 Personal history of nicotine dependence | CPT/HCPCS: 93005; 99212 ==

== ENCOUNTER 2025-02-09 07:52 | Outpatient (REF) | payer MEDICARE, MEDICAID, SELFPAY ==
--- OUTSIDE RECORDS SUMMARY | 2025-02-09 07:56 | XMS_ITS | Clinical Summary ---
Author Organization 175 [facility] Address [address] [place] [address] Phone Care Team Providers Care Local Bulk Driver Name Role Phone Florence Dickerson MD Primary Care Provider [phone] Allergies Active Allergy Reactions Criticality Noted Date [...] 9:30 AM EDT Office Visit Orthopedic Surgery [address] [address] Flavio Blake, DPM Hallux rigidus [...] AM EST Office Visit Orthopedic Surgery - [place] [address] [address] Flavio Blake, DPM [address] [address] Health Maintenance Due Date Last [...] complete this topic Insurance [place] - [place] [facility] PL[facility] Care Teams Local Bulk Driver Relationship Specialty Start Date End Date Florence Dickerson MD 1221 [facility] [address] [place], [place] PCP - General Internal Medicine 06/23/18
[2025-02-09 08:35] LABS: INTERNATIONAL NORM RATIO 1.0 (0.9-1.1); Prothrombin Time 11.7 SEC (10.9-12.4)
== END 2025-02-09 07:53 | disposition home or self-care (01) ==
LOC: HO.LAB 07:52
PROVIDERS: PCP Internal Medicine
DX: I21.4 Non-ST elevation (NSTEMI) myocardial infarction (principal)
CPT/HCPCS: 36415; 85610

== ENCOUNTER → 2025-02-13 23:59 | Outpatient (BNV) | payer MEDICARE, MEDICAID, SELFPAY | PROVIDERS: PCP Internal Medicine; Visit Provider Internal Medicine Cardiovascular Disease | DX: I20.89 Other forms of angina pectoris (principal) | CPT/HCPCS: 93458; 93571; 99152 ==

== ENCOUNTER 2025-02-27 09:10 | Outpatient (AMB) | payer OTHER, MEDICAID, SELFPAY ==
--- NOTE | 2025-02-27 09:29 | A.OFFVIS_ITS ---
Vital Signs 02/27/25 09:30 Height 6 ft 1 in Weight 227 lb 1.218 oz BMI 30.0 BP 120/66 Blood Pressure Location Lt brachial Position Sitting Pulse 93 Pulse Source Monitor Intake Visit Reasons: 2wk s/p cath Allergies Penicillins (PENICILLINS) Allergy (Intermediate, Verified 01/16/25 11:53) RASH lisinopril Allergy (Unknown, Verified 01/16/25 11:53) Itching sitagliptin (From Januvia) Adverse Reaction (Mild, Verified 01/16/25 11:53) Headache Medication List - Last Reconciled 02/27/25 by Javan Noel MD amlodipine 5 mg PO DAILY aspirin 81 mg PO DAILY atorvastatin 80 mg PO DAILY empagliflozin (Jardiance) 25 mg PO DAILY glipizide ER 10 mg PO DAILY levothyroxine 88 mcg PO DAILY losartan 100 mg PO DAILY metformin 1,000 mg PO ONCE metoprolol succinate ER 100 mg PO DAILY nitroglycerin 0.4 mg sublingual Q5M PRN ticagrelor (Brilinta) 90 mg PO BID 90 days HPI Comments Details: Siddharth returns for follow-up regarding coronary artery disease. In 2021, he had chest pain and ruled in for NSTEMI. Underwent cardiac catheterization and right coronary artery stenting. Then, he was still complaining of chest pains and that led to yet another catheterization in 09/2023. He was found to have 90% OM stenosis for which he underwent PCI. Still had residual RCA disease, medically managed. Further chest pain in the last few weeks led to another catheterization and he underwent PCI to mid RCA. Postprocedure, it seems there was stroke alerted because of we will believe that is responsive. He underwent neuro workup and it was felt to be not a TIA/CVA. Seems to have recovered from that. Multiple cardiovascular risk factors including diabetes, hypertension, dyslipidemia. [facility] Medical History Benign skin lesion of multiple sites Obesity (BMI 30.0-34.9) NEGAR (obstructive sleep apnea) Mild obstructive sleep apnea Atherosclerotic cardiovascular disease Gastroesophageal reflux disease Other and unspecified hyperlipidemia Essential hypertension Type 2 diabetes mellitus with unspecified complications Precordial chest pain Surgical History Hx of cardiac cath H/O toe surgery Family History Father No problems noted. Mother No problems noted. Social History Household Members: Spouse Housing: Apartment Do you presently have visiting nurse or other home services: No Alcohol intake: current Alcohol intake frequency: 0-2 drinks per day Patient Tobacco Use Status: Former Tobacco user service: No Review of Systems Const Denies weakness ENT Denies dizziness Card Denies chest pain, Denies chest pain with activity, Denies syncope, Denies rapid heart rate, Denies pedal edema, Denies edema, Denies leg edema, Denies lightheadedness, Denies palpitations, Denies dyspnea, Denies dyspnea on exertion and Denies orthopnea Resp Denies cough, Denies dyspnea and Denies dyspnea on exertion GI Denies hematochezia and Denies change in stool character Musc Denies abnormal gait, Denies muscle cramps, Denies muscle weakness, Denies numbness, Denies radiating pain into limb and Denies tingling Neuro Denies abnormal gait, Denies dizziness, Denies syncope, Denies numbness, Denies tingling and Denies weakness Endo Denies palpitations Physical Exam Vital Signs: Last Vital Signs Pulse 93 02/27/25 09:30 BP 120/66 02/27/25 09:30 BMI result Body Mass Index 30.0 Const General: comfortable and no acute distress Orientation/consciousness: patient oriented x3 HEENT Other: Unremarkable Head: Yes normal to inspection Neck Neck: Yes normal visual inspection Chest Chest palpation & inspection: normal inspection of the chest Resp Auscultation: clear to auscultation bilaterally Cardio Palpation: normal PMI Heart sounds: S1 normal heart sound present, S2 normal heart sound present, no gallops, no murmurs and no rubs GI Palpation (GI): Soft to palpation Back/Spine/Pelvis Other: unremarkable Skin General skin exam: no rashes or lesions noted Neuro General: patient oriented x3 Extrem General: Yes normal to inspection Psych Mental Status: mental status grossly normal Office Procedures EKG Details: EKG with underlying sinus rhythm at 93/Min; no ischemic changes; [place] [id number], Complete Assessment & Plan Assessment & Plan (1) Angina pectoris: Code(s): I20.9 - Angina pectoris, unspecified Category: Medical (2) Atherosclerotic cardiovascular disease: Code(s): I25.10 - Atherosclerotic heart disease of [place] coronary artery without angina pectoris Category: Medical (3) Type 2 diabetes mellitus with unspecified complications: Code(s): E11.8 - Type 2 diabetes mellitus with unspecified complications Category: Medical (4) Essential hypertension: Code(s): I10 - Essential (primary) hypertension Category: Medical (5) Other and unspecified hyperlipidemia: Code(s): E78.5 - Hyperlipidemia, unspecified Category: Medical Plan Pertinent studies reviewed. Cardiac catheterization 01/2025-PCI to mid RCA. Patent distal RCA/circumflex stents. Minimal disease in the LAD. Echocardiogram 04/2024-LVEF 60-65%. Moderate diastolic dysfunction. Inferior wall motion abnormality. No significant valve findings. Holter 04/2024- underlying rhythm is sinus with an average rate of 95/Min. Sinus tachycardia about 29% of the time. Rare supraventricular/ventricular ectopy. For meds, continue aspirin/Brilinta. Brilinta for one year from now. Continue metoprolol, losartan, amlodipine for blood pressure. Diabetic meds including Jardiance, metformin. Hemoglobin A1c is 7.4%. High-dose statins and cholesterol is well controlled. Compliance with CPAP. Cut back on alcohol. Weight loss. Cardiac rehabilitation. Discussed with daughter over the phone. Patient was informed and verbally consented to the use of an ambient scribe for clinic note documentation during this visit. Orders: Orders Cardiac Rehab Today Z95.5 - Presence of coronary angioplasty implant and graft Patient Instructions: - Continue using the CPAP machine every night to improve sleep quality. - Reduce alcohol consumption to help with sleep apnea symptoms. - Participate in cardiac rehabilitation as planned to enhance cardiovascular health. Coding Level of Care Code Est Pt Level 4 (92927) Complex EM visit Add On G2211 Diagnoses Angina pectoris I20.9 Atherosclerotic cardiovascular disease I25.10 Type 2 diabetes mellitus with unspecified complications E11.8 Essential hypertension I10 Other and unspecified hyperlipidemia E78.5 CPT Codes EKG - CPT: 82937-[id number], Complete ([id number])
[2025-02-27 09:30] VITALS: BP 120/66; PULSE 93
== END 2025-02-27 10:10 | disposition home or self-care (01) ==
LOC: HO.HCS 09:11
PROVIDERS: PCP Internal Medicine; Visit Provider Internal Medicine
DX: I20.9 Angina pectoris, unspecified (principal); I25.10 Atherosclerotic heart disease of native coronary artery without angina pectoris; E11.8 Type 2 diabetes mellitus with unspecified complications; I10 Essential (primary) hypertension; E78.5 Hyperlipidemia, unspecified
CPT/HCPCS: 93010; 99214

== ENCOUNTER → 2025-02-27 09:10 | Outpatient (BNVA) | payer MEDICARE, MEDICAID, SELFPAY | PROVIDERS: PCP Internal Medicine; Visit Provider Internal Medicine | DX: I25.10 Atherosclerotic heart disease of native coronary artery without angina pectoris (principal); Z95.5 Presence of coronary angioplasty implant and graft; Z87.891 Personal history of nicotine dependence; I10 Essential (primary) hypertension; Z79.82 Long term (current) use of aspirin; E78.5 Hyperlipidemia, unspecified; E11.65 Type 2 diabetes mellitus with hyperglycemia; Z79.84 Long term (current) use of oral hypoglycemic drugs; G47.33 Obstructive sleep apnea (adult) (pediatric); Z99.89 Dependence on other enabling machines and devices; F10.20 Alcohol dependence, uncomplicated | CPT/HCPCS: 93005; 99212 ==

== ENCOUNTER 2025-04-11 10:08 | Outpatient (AMB) | payer MEDICARE, MEDICAID, SELFPAY ==
[2025-04-11 10:15] VITALS: BP 170/78; PULSE 112; BMI 31.3
--- NOTE | 2025-04-11 10:15 | A.OFFVIS_ITS ---
Vital Signs 04/11/25 10:15 Height 6 ft Weight 231 lb BMI 31.3 BP 170/78 H Blood Pressure Location Rt brachial Position Sitting Pulse 112 H Intake Visit Reasons: excision skin lesions,neck Intake Note: Office procedure: excision skin lesions, neck Coverstitch Elastic Attacher Required: No Accompanied by: Spouse Allergies Penicillins (PENICILLINS) Allergy (Intermediate, Verified 04/11/25 10:15) RASH lisinopril Allergy (Unknown, Verified 04/11/25 10:15) Itching sitagliptin (From Januvia) Adverse Reaction (Mild, Verified 04/11/25 10:15) Headache HPI HPI excision skin lesions,neck: Details: He is here for excision of lesions. He now wants skin lesions on the right groin as well as the left groin removed. This are on the medial aspect of the proximal thigh. [facility] Medical History Benign skin lesion of multiple sites Obesity (BMI 30.0-34.9) NEGAR (obstructive sleep apnea) Mild obstructive sleep apnea Atherosclerotic cardiovascular disease Gastroesophageal reflux disease Other and unspecified hyperlipidemia Essential hypertension Type 2 diabetes mellitus with unspecified complications Precordial chest pain Surgical History Hx of cardiac cath H/O toe surgery Family History Father No problems noted. Mother No problems noted. Social History Household Members: Spouse Housing: Apartment Do you presently have visiting nurse or other home services: No Alcohol intake: current Alcohol intake frequency: 0-2 drinks per day Patient Tobacco Use Status: Former Tobacco user service: No Physical Exam Vital Signs: Last Vital Signs Pulse 112 H 04/11/25 10:15 BP 170/78 H 04/11/25 10:15 BMI result Body Mass Index 31.3 Back/Spine/Pelvis Other: Medial aspect of the proximal thigh on the right near the groin is note of 1 cm soft, fleshy mass with a narrow base Medial aspect of the proximal thigh and the left near the groin is note of a 5 mm soft fleshy mass also with a narrow base Office Procedures Excision Details: He was placed in frog-leg position. The area of the skin lesion on the right groin was prepped and draped. Lidocaine 1% was used for local anesthesia. I made an elliptical incision of the skin surrounding the base of the skin lesion with a blade 15. This carried down through the full-thickness of the skin and subcutaneous fat to excise this lesion. This measured about almost 1 cm in widest dimension . Since the base was very narrow, I did not place sutures. I just cauterized the excision site with silver nitrate sticks. There was a 2nd lesion on the left groin. This area was prepped and draped. Lidocaine 1% was used for local anesthesia. I excised this lesion in the same manner as above. I cauterized the excised area with silver nitrate sticks. [id number]-eztey/arms/legs < 0.5cm 83884-ausxd/arms/legs 0.6-1cm Procedure code (CPT) selection complete Assessment & Plan Assessment & Plan (1) Benign skin lesion of multiple sites: Code(s): L98.9 - Disorder of the skin and subcutaneous tissue, unspecified Category: Medical Plan: Excision of skin lesions on the right groin as well as the left groin were done in the office under local anesthesia. He tolerated procedure well. He was given wound care instructions. He can see me in the office on a p.r.n. basis. Orders: Orders Surgical Today L98.9 - Disorder of the skin and subcutaneous tissue, unspecified Coding Level of Care Code Procedure Only Diagnoses Benign skin lesion of multiple sites L98.9 CPT Codes Trunk/Arms/Legs - CPT: 63896-dxrot/arms/legs < 0.5cm ([id number]) Trunk/Arms/Legs - CPT: 89957-sgulv/arms/legs 0.6-1cm ([id number])
== END 2025-04-11 10:53 | disposition home or self-care (01) ==
LOC: HO.HGS 10:08
PROVIDERS: PCP Internal Medicine; Visit Provider Surgery
DX: L91.8 Other hypertrophic disorders of the skin (principal)
CPT/HCPCS: 11400; 11401

== ENCOUNTER 2025-04-11 10:08 | Outpatient (REF) | payer MEDICARE, SELFPAY ==
--- OUTSIDE RECORDS SUMMARY | 2025-04-11 17:19 | XMS_ITS | Clinical Summary ---
Author Organization 175 [facility] Address [address] [place] [address] Phone Care Team Providers Care Corporate Bond Trader Name Role Phone Florence Dickerson MD Primary Care Provider [phone] Allergies Active Allergy Reactions Criticality Noted Date [...] 9:30 AM EDT Office Visit Orthopedic Surgery [address] [address] Flavio Blake, DPM Hallux rigidus [...] AM EST Office Visit Orthopedic Surgery - [place] [address] [address] Flavio Blake, DPM [address] [address] Health Maintenance Due Date Last Done Comments Colorectal Cancer Screening: Colonoscopy 1959 Diabetes: Annual GFR (Glomerular Filtration Rate) 1959 Diabetes: Annual Foot Exam 1969 Diabetes: Annual Retina Eye Exam 1969 RSV Immunization Adult Patients (1 - Risk 50-74 years 1-dose series) 2009 Zoster Vaccines (2 of 2) 01/28/2022 12/03/2021, 02/20 Abdominal Aortic Aneurysm (AAA) Screen 06/21/2023 Cholesterol Screening (Lipid Panel) 06/21/2023 Hepatitis C Screening 06/21/2023 Medicare Annual [...] complete this topic Insurance MED[place]ID - [place] [facility] PL[facility] MEDICARE Care Teams Corporate Bond Trader Relationship Specialty Start Date End Date Florence Dickerson MD [facility] [address] PCP - General Internal Medicine 06/23/18
== END 2025-04-11 10:09 | disposition home or self-care (01) ==
LOC: HO.LNP 10:08
PROVIDERS: PCP Internal Medicine; Visit Provider Surgery
DX: L98.8 Other specified disorders of the skin and subcutaneous tissue (principal); L91.8 Other hypertrophic disorders of the skin
CPT/HCPCS: 11400; 11401; 88304